=== PATIENT | male | born 1965 | race Caucasian/White ===

== ENCOUNTER 2022-08-22 06:26 | Outpatient (CLI) | payer OTHER, SELFPAY ==
--- NOTE | 2022-08-22 06:42 | CT_ITS ---
WS: [id number] CT ABDOMEN AND PELVIS NONCONTRAST HISTORY: MASS UPPER RIGHT THIGH, LOWER PELVIC AREA, history of Hodgkin's lymphoma. TECHNIQUE: Imaging performed through the abdomen and pelvis. Coronal and sagittal reformats are submi tted. All CT scans at [facility] use at least one of these dose optimization techniques: auto mated exposure control; mA and/or kV adjustment per patient size (includes targeted exams where dose is matched to clinical indication); or iterative reconstruction. DLP: 1347.43 mGy.cm COMPARISON: None available. Lower thorax: Lung bases are clear. Visualized heart is normal. No hiatal hernia. Liver: Normal size. No mass or bile duct dilatation on this unenhanced exam. Gallbladder: Mildly contracted. Pancreas: Normal size and attenuation. Normal pancreatic duct. No pancreatitis or mass. Spleen: Normal. Adrenal glands: Normal. No mass. Right kidney: Normal size kidney with no mass or hydronephrosis. Left kidney: Normal size kidney with no mass or hydronephrosis. Aorta: Mild atherosclerosis abdominal aorta with no aneurysm. No free fluid or free air. GI tract: Normally distended stomach. No small bowel obstruction. No wall thickening or colitis. Norm al appendix. Abdominal wall: Negative. No hernia. Pelvis: Well-distended urinary bladder. No free fluid in the pelvis. Several enlarged lymph nodes in the pelvis. The largest in the RIGHT inguinal region measures 2.0 x 3.3 cm. There are smaller lymph n odes bilaterally in the inguinal regions. The largest on the RIGHT is rounded with mild wall enhancem ent measuring 1.5 cm in diameter. Osseous structures: No osteoblastic or osteolytic bone disease. Subchondral cyst LEFT acetabulum. CT/CT abdomen pelvis wo con [id number] IMPRESSION: 1. Mildly enlarged lymph nodes in the RIGHT inguinal region. In the deep RIGHT inguinal region the largest lymph node measures 2.0 x 3.3 cm. There are severa l additional smaller bilateral inguinal lymph nodes which are more superficial. Possibility of recurrent Hodgkin's disease should be considered. 2. No retroperitoneal or mesenteric lymph nodes. 3. Mild constipation. 4. No ascites.
== END 2022-08-22 06:27 | disposition home or self-care (01) ==
LOC: RAD 06:27
PROVIDERS: PCP Nurse Practitioner; Visit Provider Nurse Practitioner
DX: R19.00 Intra-abdominal and pelvic swelling, mass and lump, unspecified site (principal); K59.00 Constipation, unspecified
CPT/HCPCS: 74176

== ENCOUNTER 2022-09-07 06:07 | Outpatient (CLI) | payer OTHER, SELFPAY ==
--- NOTE | 2022-09-07 | US_ITS ---
WS: [id number] RIGHT UPPER QUADRANT ULTRASOUND HISTORY: ELEVATED LFT'S COMPARISON: None available. Liver: 15.5 cm in length. Normal size liver. No bile duct dilatation or mass. Portal Vein: Normal hepatopetal flow with monophasic waveform. Gallbladder: Normally distended gallbladder with no stones or wall thickening. CBD: 0.3 cm Pancreas: Normal size and echogenicity. Right kidney: 11.3 cm in length. Normal size and echogenicity. No hydronephrosis or mass. Aorta and IVC: Unremarkable abdominal aorta and IVC. No ascites. US/US liver [id number] IMPRESSION: Normal RIGHT upper quadrant ultrasound.
== END 2022-09-07 06:08 | disposition home or self-care (01) ==
LOC: RAD 06:08
PROVIDERS: PCP Nurse Practitioner; Visit Provider Nurse Practitioner
DX: R94.5 Abnormal results of liver function studies (principal)
CPT/HCPCS: 76705

== ENCOUNTER 2022-10-27 15:50 | Oncology outpatient (recurring) (ONCR) | payer OTHER, SELFPAY | END 2022-11-19 23:59 | disposition home or self-care (01) | LOC: ONCMED 15:50 | PROVIDERS: PCP Nurse Practitioner; Visit Provider Internal Medicine Medical Oncology | DX: R59.1 Generalized enlarged lymph nodes (principal); Z85.71 Personal history of Hodgkin lymphoma; Z92.21 Personal history of antineoplastic chemotherapy; Z92.3 Personal history of irradiation | CPT/HCPCS: 99204 ==

== ENCOUNTER 2022-12-02 12:20 | Outpatient (CLI) | payer OTHER, SELFPAY ==
--- NOTE | 2022-12-02 13:00 | US_ITS ---
WS: [id number] ULTRASOUND GUIDED BIOPSY RIGHT INGUINAL LYMPH NODES. HISTORY: abnormal lymph nodes on PET and CT Procedure, risks, and complications are explained to the patient. Consent was obtained. Skin is clean sed with ChloraPrep and anesthetized with 1% buffered lidocaine. Positive lymph nodes were noted on a prior PET/CT. Multiple lymph nodes are identified in the RIGHT i nguinal canal. These lymph nodes are only mildly abnormal. Some of these lymph nodes have a minimally displaced fatty hilum. Lymph node noted to be PET/CT positive will be targeted. Double small core biopsies are performed of the lymph node in the RIGHT groin. Multiple core biopsies are performed and placed within preservative and saline as requested by pathology. No complications were encountered. US/US biopsy lymph node [id number] IMPRESSION: 1. Multiple core biopsies performed of a RIGHT inguinal lymph node which was p ositive on PET/CT imaging. Flow cytometry will also be performed. 2. The lymph nodes do not appear overtly abnormal by ultrasound. If these lymp h nodes are negative for malignancy or there is no explanation for the PET/CT p ositive imaging, surgical removal may be necessary. None of the lymph nodes in the RIGHT inguinal region appear particularly abnormal.
[2022-12-05 14:34] LABS: Lymphoma Profile (BBPL) See Report
== END 2022-12-02 12:21 | disposition home or self-care (01) ==
LOC: RAD 12:22
PROVIDERS: PCP Nurse Practitioner; Visit Provider Internal Medicine Medical Oncology
DX: R59.1 Generalized enlarged lymph nodes (principal)
CPT/HCPCS: 38505; 76942; 88184; 88185; 88305; 88342

== ENCOUNTER 2024-01-08 11:49 | Emergency (ER) | payer OTHER, SELFPAY ==
[2024-01-08 11:52] VITALS: BP 168/92; PULSE 76; RESP 16; TEMP 36.6; O2SAT 97; BMI 33.5
--- NOTE | 2024-01-08 12:07 | ED_ITS ---
HPI - General Adult 2 General: Chief complaint: General Medical Stated complaint: n,dizzy, ear ringing Time Seen by Provider: 01/08/24 12:07 History of Present Illness: 58-year-old male presents to the emergen cy department with complaints of feeling intermittently dizzy and then feeling faint and stating he felt like he had ringing in the ears. He denies headache, he does endorse nausea without vomiting. He denies chest pain or shortness of breath. He states this has happened a couple times throughout his life. He denies recent or known trauma. Associated symptoms: Deny chest pain, palpitations or syncope Review of Systems 2 General: Reports: 10 or more systems reviewed and unremarkable except in HPI and below ENMT: Reports: other (Ringing in the ears) Card: Denies: chest pain, palpitations, irregular heart rhythm, edema, syncope or pre-syncope Neuro: Reports: dizziness and vertigo [facility] ED 2 PFSH: Medical History (Updated 01/08/24 @ 12:58 by Gume Cameron MD) Peripheral neuropathy ADHD (attention deficit hyperactivity disorder) Personal history of Hodgkin lymphoma Heart murmur Surgical History (Updated 10/27/22 @ 17:19 by Abe Agosto MD) History of right inguinal hernia repair History of knee surgery Right Family History (Updated 10/27/22 @ 16:08 by Génesis Flynn LPN) Grandfather CAD (coronary artery disease) Mother Cancer lung cancer - smoker Psychiatric illness depression Grandmother Dementia Stroke Denies family history of Diabetes Clotting disorder Hyperlipidemia Chronic kidney disease (CKD) Suicide Anesthesia complication Bleeding disorder Lung disease Hypertension Social History (Updated 10/27/22 @ 16:08 by Génesis Flynn LPN) Smoking and tobacco/nicotine status: former use of tobacco/nicotine Physical Exam 2 Narrative: EXAM NARRATIVE: Constitutional: the patient appears well nourished and with normal development. Vital signs reviewed as documented. HENMT: Normocephalic, atraumatic. External ears normal appearance without drainage. Nose without drainage, normal appearance. Mucus membranes moist. Neck is supple, No jugular venous distension, trachea is midline, no appreciable carotid bruits. No lymphadenopathy. No meningeal signs. Flexion, extension and lateral rotation is without pain. Eyes: Pupils are equal, round, reactive to light and accommodation. No scleral icterus. Extra-ocular movement are intact. Thorax is symmetrical and with equal rise and fall with respirations. Resp: Lungs are clear to auscultation. No wheezes, rales, crackles or ronchi at present. Cardio: Regular rate and rhythm. Positive S1, S2. No appreciable murmurs, rubs or gallops. GI: Abdominal exam reveals normal bowel sounds to all quadrants. No organomegaly. No obvious palpable masses noted. No hepatomegally appreciated. Soft, non-tender to palpation. Extremity: Extremities are non-edematous and both femoral and pedal pulses are 2+ and equal bilaterally. Moves all extremities well, sensation in all extremities. Neuro: Alert and oriented x4, person, place, time and situation. Cranial nerves II through XII are grossly intact, there is no focal neurological deficits that I can appreciate at present. Motor strength in the upper and lower extremities are equal and bilateral 5/5. Psych: Cooperative, calm, normal thought process, appropriate judgment. Skin: No lesions, rashes. No gross abnormalities noted. Back: Symmetrical, no obvious deformity, No CVA tenderness Course 2 Vital Signs: Vital signs: Vital Signs Temperature 97.8 F 01/08/24 11:52 Pulse Rate 74 01/08/24 13:42 Respiratory Rate 16 01/08/24 11:52 Blood Pressure 170/93 01/08/24 13:42 Pulse Oximetry 97 01/08/24 13:42 Oxygen Delivery Me thod Room Air 01/08/24 11:52 MDM - General Adult Medical Decision Making Physical exam completed and documented I will obtain CT scan of his head provide him meclizine and obtain laboratory evaluation and twelve-lead EKG to include a CBC and a CMP. Differential Diagnosis M?ni?re's, dehydration, electrolyte abnormality, intracranial pathology Medical Records I reviewed the patient's medical records. Lab Data I reviewed the patient's lab results. 01/08/24 12:31 01/08/24 12:31 Laboratory Results WBC 9.42 10^3/uL (3.29-11.43) 01/08/24 12:31 RBC 4.87 10^6/uL (3.85-5.65) 01/08/24 12:31 Hgb 14.20 g/dL (11.27-16.99) 01/08/24 12:31 Hct 43.0 % (37-53) 01/08/24 12:31 MCV 88.3 fl (82-101) 01/08/24 12:31 MCH 29.2 pg (27-33) 01/08/24 12:31 MCHC 33.0 g/dL (30-55) 01/08/24 12:31 RDW 14.2 % (12.1-15.1) 01/08/24 12:31 Plt Count 292 10^3/cmm (157-399) 01/08/24 12:31 MPV 10.3 fL (7.4-10.4) 01/08/24 12:31 Neut % (Auto) 54.1 % 01/08/24 12:31 Lymph % (Auto) 28.8 % 01/08/24 12:31 Mcculloch % (Auto) 14.4 % 01/08/24 12:31 Eos % (Auto) 1.2 % 01/08/24 12:31 Baso % (Auto) 1.2 % 01/08/24 12:31 Neut # (Auto) 5.10 10^3/uL (1.8-7.7) 01/08/24 12:31 Lymph # (Auto) 2.7 10^3/uL (0.8-4.8) 01/08/24 12:31 Mcculloch # (Auto) 1.4 10^3/uL (0.2-0.9) H 01/08/24 12:31 Eos # (Auto) 0.1 10^3/uL (0.0-0.8) 01/08/24 12:31 Baso # (Auto) 0.1 10^3/uL (0.0-0.1) 01/08/24 12:31 Nucleated RBC % (auto) 0 % 01/08/24 12:31 Nucleated RBCs # 0.0 /100WBC 01/08/24 12:31 Sodium 138 mmol/L (136-145) 01/08/24 12:31 Potassium 3.7 mmol/L (3.5-5.1) 01/08/24 12:31 Chloride 102 mmol/L (98-107) 01/08/24 12:31 Carbon Dioxide 25 mmol/L (22-29) 01/08/24 12:31 Anion Gap 14.7 (5-19) 01/08/24 12:31 BUN 13 mg/dL (6-20) 01/08/24 12:31 Creatinine 0.9 mg/dL (0.7-1.2) 01/08/24 12:31 GFR Calculation 87.3 mL/min (90-130) L 01/08/24 12:31 Glucose 109 mg/dL (65-115) 01/08/24 12:31 Calculated Osmolality 287 mOsm/kg (285-295) 01/08/24 12:31 Calcium 9.1 mg/dL (8.5-10.5) 01/08/24 12:31 Total Bilirubin 0.5 mg/dL (0.15-1.2) 01/08/24 12:31 AST 23 U/L (0-40) 01/08/24 12:31 ALT 20 U/L (0-41) 01/08/24 12:31 Alkaline Phosphatase 78 U/L (40-130) 01/08/24 12:31 Total Protein 7.9 g/dL (6.6-8.7) 01/08/24 12:31 Albumin 4.0 g/dL (3.5-5.2) 01/08/24 12:31 Globulin 3.9 g/dL (1.3-4.6) 01/08/24 12:31 All radiology interpretation(s) finalized by discharge EKG Data EKG 1: Interpretation: Twelve-lead EKG obtained at 1222 and reviewed at 1225 demonstrates sinus rhythm with a first-degree AV block and a ventricular rate of 71 ND interval 201, QRS duration 94, QT 395, QTc 418, there is no ST elevation or depression at present to demonstrate acute ischemia or infarction. Discharge Plan Discharge Patient Disposition: Home Clinical Impression: Benign paroxysmal positional vertigo Qualifiers: Laterality: unspecified laterality Qualified Code(s): H81.10 - Benign paroxysmal vertigo, unspecified ear Condition: Stable Prescriptions: New meclizine 50 mg tablet 50 mg PO BID PRN (Reason: dizziness) Qty: 30 0RF No Action methylphenidate HCl [Ritalin] 10 mg tablet See Rx Instructions PO DAILY Rx Instructions: unsure of dose orally daily; Discharge Orders: Discharge ED (Routine); Ordered 01/08/24 Ordered By: Gume Cameron Referrals: Chelsea Quintana FNP [Primary Care Provider] - Discharge Diet: Advance as tolerated Discharge Activity: Resume usual activity Patient Instructions: Opioid Safety, Pain Management Activity Restrictions/Additional Instructions: Activity Restrictions/Additional Instructions: Thank you for choosing [facility] for your healthcare needs today. Please realize that you were seen in the Emergency Department and that we are providing you with an emergency medical screening exam and this may not be a complete and all inclusive of all the testing and or medical work-up that you may need to determine your ailment or severity of your illness. It is very important that you follow-up as instructed with your Primary care provider or Specialist for additional evaluation and to discuss your medical treatment plan. You may return to the Emergency Department should you have concerns or if your condition changes or worsens in any way. Coding Level of Care Code ED Window Machine Operator for Doni العراقي
[2024-01-08 12:08] VITALS: BP 151/92; BP 151/93; BP 161/92; PULSE 75; PULSE 81; PULSE 85
--- NOTE | 2024-01-08 12:08 | ECG_ITS ---
[facility] Test Date: 2024-01-08 Pat Name: Richard Fofana Department: Room: Gender: Male Principal Technologist: : 1965 Requested By: Gume Cameron Order Number: [id number] Manuel MD: Ino Abrams M.D. Measurements Intervals [place] Rate: 71 P: 65 MS: 201 QRS: 50 QRSD: 94 T: 73 QT: 395 QTc: 432 Interpretive Statements SINUS RHYTHM VOLTAGE CRITERIA FOR LVH [MEETS CRITERIA IN ONE OF: R(aVL), S(V1), R(V5), R(V5/V6)+S(V1)] NONSPECIFIC T-WAVE ABNORMALITY No previous ECG available for comparison Electronically Signed On 01-08-2024 12:47:20 DISABILITY SERVICES COORDINATOR by Ino Abrams M.D. [id number]
--- NOTE | 2024-01-08 12:08 | CT_ITS ---
WS: [id number] CT HEAD TECHNIQUE: Noncontrast CT of the head obtained from the skullbase to the vertex. CLINICAL INFORMATION: Dizzines COMPARISON: None. DLP: 1083.[address] scans at [facility] use at least one of these dose optimization techniques: automated e xposure control; mA and/or kV adjustment per patient size (includes targeted exams where dose is matc hed to clinical indication); or iterative reconstruction. FINDINGS: No evidence of intracranial hemorrhage or mass effect. Ventricular system and basal cisterns are pratt nt. Mild small vessel changes with mild parenchymal volume loss. No extra-axial fluid collections. No evidence of mass or mass effect. Intracranial vascular calcification. Tiny chronic lacunar infarcts bilateral caudate greater than LEFT. Paranasal sinuses and mastoid air cells are well aerated. .Normal visualized soft tissues. IMPRESSION: 1. No evidence of intracranial hemorrhage or mass effect. 2. No acute intracranial findings.
[2024-01-08] MEDS: meclizine 25 mg tablet 50 MG PO (12:27)
[2024-01-08 12:39] LABS: Basophils # 0.1 10^3/uL (0.0-0.1); Basophils % 1.2 %; Eosinophils # 0.1 10^3/uL (0.0-0.8); Eosinophils % 1.2 %; Lymphocytes # 2.7 10^3/uL (0.8-4.8); Lymphocytes % 28.8 %; Mean Corpuscular Hemoglobin 29.2 pg (27-33); Mean Corpuscular Volume 88.3 fl (82-101); Mean Platelet Volume 10.3 fL (7.4-10.4); Monocytes # 1.4 10^3/uL (0.2-0.9); Monocytes % 14.4 %; Neutrophils % 54.1 %; Nucleated Red Blood Cells % 0 %; Platelet Count 292 10^3/cmm (157-399); Red Blood Count 4.87 10^6/uL (3.85-5.65); Red Cell Distribution Width 14.2 % (12.1-15.1); White Blood Count 9.42 10^3/uL (3.29-11.43)
[2024-01-08 12:57] LABS: Alanine Aminotransferase 20 U/L (0-41); Alkaline Phosphatase 78 U/L (40-130); Anion Gap 14.7 (5-19); Aspartate Amino Transferase 23 U/L (0-40); Blood Urea Nitrogen 13 mg/dL (6-20); Calcium 9.1 mg/dL (8.5-10.5); Carbon Dioxide 25 mmol/L (22-29); Chloride 102 mmol/L (98-107); Globulin 3.9 g/dL (1.3-4.6); Glomerular Filtration Rate 87.3 mL/min (90-130); Glucose 109 mg/dL (65-115); Osmolality Calculated 287 mOsm/kg (285-295); Potassium 3.7 mmol/L (3.5-5.1); Sodium 138 mmol/L (136-145); Total Bilirubin 0.5 mg/dL (0.15-1.2); Total Protein 7.9 g/dL (6.6-8.7)
[2024-01-08 13:42] VITALS: BP 170/93; PULSE 74; O2SAT 97
== END 2024-01-08 13:43 | disposition home or self-care (01) ==
PROVIDERS: Emergency Provider Internal Medicine; PCP Nurse Practitioner
DX: H81.10 Benign paroxysmal vertigo, unspecified ear (principal); Z87.891 Personal history of nicotine dependence; Z85.71 Personal history of Hodgkin lymphoma
CPT/HCPCS: 36415; 70450; 80053; 85025; 93005; 99284; J8597

== ENCOUNTER → 2024-08-21 08:35 | Outpatient (BNVA) | payer OTHER, SELFPAY | PROVIDERS: PCP Nurse Practitioner; Referring Provider Nurse Practitioner; Visit Provider Nurse Practitioner Family | DX: D48.5 Neoplasm of uncertain behavior of skin (principal); L82.0 Inflamed seborrheic keratosis; L91.8 Other hypertrophic disorders of the skin; L81.4 Other melanin hyperpigmentation; D22.39 Melanocytic nevi of other parts of face | CPT/HCPCS: 11102; 17110; 99203 ==

== ENCOUNTER → 2024-09-04 08:28 | Outpatient (BNVA) | payer OTHER, SELFPAY | PROVIDERS: PCP Nurse Practitioner; Referring Provider Nurse Practitioner; Visit Provider Surgery | DX: Z12.11 Encounter for screening for malignant neoplasm of colon (principal) | CPT/HCPCS: 99203 ==

== ENCOUNTER 2024-09-26 10:44 | Day surgery (SDC) | payer OTHER, SELFPAY ==
[2024-09-26 10:58] VITALS: BP 140/82; PULSE 71; RESP 16; TEMP 36.3; O2SAT 98; BMI 34.2
[2024-09-26] MEDS: sodium chloride 0.9% 1,000 ML 30 ML IV (11:09)
--- NOTE | 2024-09-26 11:12 | P.HPUD_ITS ---
Surgery/Procedure H&P Update DATE OF PROCEDURE: September 26, 2024 DATE H&P PERFORMED: 09/04/24 H&P UPDATE INFORMATION: I have reviewed H&P completed within last 30 days, I have examined patient prior to procedure, No changes to prior documentation and H&P is in [facility] EMR on date indicated PLANNED PROCEDURE: Operation Date: 09/26/24 12:20 Proposed Procedures p Colonoscopy 52750, G0121, Z12.11(Not Applicable) - Balta Young MD
--- NOTE | 2024-09-26 12:41 | ANES.PREANE2 ---
Pre-Anesthetic Assessment Height/Weight: Height 1.8 m Weight 111.13 kg Temp Pulse Resp BP Pulse Ox O2 Del Method 97.4 F L 71 16 140/82 98 Room Air 09/26/24 10:58 09/26/24 10:58 09/26/24 10:58 09/26/24 10:58 09/26/24 10:58 09/26/24 10:58 Operation Date: 09/26/24 12:20 Proposed Procedures p Colonoscopy 23935, G0121, Z12.11(Not Applicable) - Balta Young MD Familial anesthetic complications: None Was Beta Ana taken within 24 hours: N/A Was Clonidine taken within 24 hours: N/A Last intake: Intake Last Liquid Date 09/26/24 Last Liquid Time 08:00 Last Solid Date 09/24/24 Last Solid Time 18:00 Social No alcohol and No tobacco Exam alert, oriented x 3, clear to auscultation bilaterally and regular rate & rhythm Airway Dentition: full Neuropsych ADHD Anesthetic Plan ASA status: 1 Anesthesia: MAC Risk of > 500 ml blood loss (7ml/kg in children): No Medications/Allergies Home Medications Medication Instructions Recorded Confirmed Last Taken Type methylphenidate HCl 10 mg tablet 10 mg PO DAILY 10/27/22 09/26/24 09/25/24 History (Ritalin) meclizine 50 mg tablet 50 mg PO BID PRN dizziness #30 tabs 01/08/24 09/26/24 09/25/24 Rx Allergies Allergy/AdvReac Type Severity Reaction Status Date / Time Iodinated Contrast Media Allergy ALGY-Hives Verified 09/26/24 10:56 Current Medications Generic Name Dose Route Start Last Admin Trade Name Freq PRN Reason Stop Dose Admin Sodium Chloride 1,000 mls @ 30 mls/hr 09/26/24 11:00 09/26/24 11:09 Sodium Chloride 0.9% IV 09/27/24 10:59 30 mls/hr .Q24H PARAS Administration PFSH Anesthesia Medical History Peripheral neuropathy ADHD (attention deficit hyperactivity disorder) Personal history of Hodgkin lymphoma Heart murmur Surgical History History of right inguinal hernia repair History of knee surgery Right Family History Grandfather CAD (coronary artery disease) Mother Cancer lung cancer - smoker Psychiatric illness depression Grandmother Dementia Stroke Denies family history of Diabetes Clotting disorder Hyperlipidemia Chronic kidney disease (CKD) Suicide Anesthesia complication Bleeding disorder Lung disease Hypertension Social History (Updated 09/04/24 @ 08:59 by FRED Ray) Smoking and tobacco/nicotine status: never used tobacco/nicotine Alcohol intake: current Alcohol intake frequency: holidays/special occasions only Data Anesthesia Cardiac Studies: No Data to Display
[2024-09-26 12:57] VITALS: BP 112/67; PULSE 71; RESP 16; TEMP 36.5; O2SAT 98
[2024-09-26 13:12] VITALS: BP 136/80; PULSE 80; RESP 18; O2SAT 97
--- NOTE | 2024-09-26 14:15 | ANE.PACU2 ---
Inpatient post-anesthesia follow up: Airway intact: Yes Vital signs: Temperature 97.7 F Pulse Rate 80 Respiratory Rate 18 Blood Pressure 136/80 Pulse Oximetry 97 Oxygen Delivery Me thod Room Air Oxygen Flow Rate Fraction of Inspir ed Oxygen Hydration adequate: Yes Nausea and vomiting: No Pain level: 1 Mental status: Baseline
== END 2024-09-26 14:15 | disposition home or self-care (01) ==
PROVIDERS: PCP Nurse Practitioner; Visit Provider Surgery
PROC: 0DJD8ZZ Inspection of Lower Intestinal Tract, Via Natural or Artificial Opening Endoscopic (ICD-10-PCS; CPT 45378; principal; 2024-09-26 12:20)
DX: Z12.11 Encounter for screening for malignant neoplasm of colon (principal); D12.4 Benign neoplasm of descending colon; D12.5 Benign neoplasm of sigmoid colon; D12.8 Benign neoplasm of rectum; F90.9 Attention-deficit hyperactivity disorder, unspecified type
CPT/HCPCS: 45380; 88305; J2704; J7030

== ENCOUNTER → 2024-10-08 09:11 | Outpatient (BNVA) | payer OTHER, SELFPAY | PROVIDERS: PCP Nurse Practitioner; Visit Provider Surgery | DX: Z09 Encounter for follow-up examination after completed treatment for conditions other than malignant neoplasm (principal) | CPT/HCPCS: 99213 ==

== ENCOUNTER 2025-01-16 07:36 | Outpatient (CLI) | payer OTHER, SELFPAY ==
--- NOTE | 2025-01-16 07:40 | ECG_ITS ---
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 Interpretive Statements EXERCISE STRESS TEST EXERCISE DATA: The patient was exercised by Suraj protocol. Baseline heart rate was 67 beats per minute. Baseline blood pressure was 136/80 millimeters of mercury. Maximal predicted heart rate was 163 beats per minute. Maximum heart rate achieved was 137 which was 84% of the maximum predicted heart rate. Maximum blood pressure was 143/72 millimeters of mercury. Total exercise time was 5 minutes and 31 seconds. Maximum METs achieved was 7. The reason for ending the test was completion of protocol. The patient complained of shortness of breath during the stress test, which then resolved at the end of the test. ELECTROCARDIOGRAM: BASELINE: Showed sinus rhythm, normal axis, no significant ST-T changes at the baseline noted. [] EXERCISE: At the peak exercise level, [] EKG changed to left bundle branch block RECOVERY: During the recovery period, heart rate dropped appropriately. Left bundle branch block resolved. CONCLUSION: 1. Exercise capacity is fair 2. Heart rate response was borderline suboptimal 3. Blood pressure response was appropriate 4. Symptoms not suggestive of ischemia. 5. Electrocardiogram portion of the stress test is abnormal as patient had exercise induced left bundle branch block. 6. Nuclear scan will be documented separately. Electronically Signed On 02-05-2025 11:56:21 CDT by Ino Abrams M.D. [email or web address] [id number]
--- NOTE | 2025-01-16 07:41 | NMCV_ITS ---
NM asif perf SPECT r/s* [id number] Richard Fofana Age: 59 Gender: M : 1965 Exam Date: 01/16/2025 08:49 Ordering Phys: Chelsea Quintana Technologist: YULY Pal Exam [facility] Indications: cp STRESS TEST Please see separate stress test report in [facility] for full findings IMAGE PROTOCOL Rest/Stress 1 Exercise Day Radiopharmaceutical Dose (mCi) Administration Site Administered by Rest: Tc-99m 10.3 IV Darling Colón DEPOSIT CLERK Sestamibi Stress:Tc-99m 32.7 IV Darling Colón DEPOSIT CLERK Sestamibi Rest: 16-Jan-2025 60 Discovery 630 Stress: 16-Jan-2025 15 Discovery 630 Radiopharmaceutical was injected at 84% maximum heart rate. Images obtained in supine and prone position. SPECT RESULTS Technical Quality: Good Raw Data Analysis: Normal Image Corrections: No attenuation or motion correction applied Summed Stress Score: 3 Summed Rest Score: 1 Summed Difference Score: 2 PERFUSION FINDINGS There is a small sized partially reversible perfusion defect seen in apical lateral wall. This is consistent with small area of prior infarct with small sized urban-infarct ischemia seen in this territory. FUNCTIONAL RESULTS (calculated via Gated SPECT) Stress Image LV EF (%): 54 Stress EDV (mL):155 TID: 0.99 Stress ESV (mL):72 FUNCTIONAL FINDINGS: There is normal left ventricular systolic function. IMPRESSIONS 1. Small area of prior infarct with small sized area of urban-infarct ischemia seen in the apical lateral wall. 2. LV systolic function is normal Ino Abrams MD (Electronically Signed) Final Date: 16 January 2025 11:25 S
[2025-01-16 07:45] VITALS: BMI 30.7
--- NOTE | 2025-01-16 09:35 | PC.NURSE ---
Patient went into a left BBB around minute 5 of the treadmill. He had complaints of SOB, NO chest pain. He was injected and the test was finished. BP 115/67. Dr. Robbins was notified. Orders received to finish the nuclear medicine portion of the testing. The patient did convert to NSR during recovery. All this was explained to the patient in detail with his understanding voiced. He wished to continue. DC BP 175/83 with SOB resolved. Still NO chest pain. He was discharged from [facility] at 0930 via wheelchair to nuclear medicine with Johan AetherPal tech.
[2025-01-16 09:36] VITALS: BP 175/83; PULSE 89
== END 2025-01-16 07:37 | disposition home or self-care (01) ==
LOC: CDL 07:37
PROVIDERS: PCP Nurse Practitioner; Visit Provider Nurse Practitioner
DX: R06.02 Shortness of breath (principal); I24.89 Other forms of acute ischemic heart disease; R93.1 Abnormal findings on diagnostic imaging of heart and coronary circulation
CPT/HCPCS: 36415; 78452; 93017; 96374; A9500

== ENCOUNTER → 2025-01-20 15:40 | Outpatient (BNVA) | payer OTHER, SELFPAY | PROVIDERS: PCP Nurse Practitioner; Visit Provider Internal Medicine Cardiovascular Disease | DX: I20.89 Other forms of angina pectoris (principal); R06.02 Shortness of breath; R94.39 Abnormal result of other cardiovascular function study; I38 Endocarditis, valve unspecified | CPT/HCPCS: 99204 ==

== ENCOUNTER 2025-01-30 06:02 | Outpatient (CLI) | payer OTHER, SELFPAY ==
[2025-01-30] VITALS (29 sets, daily range): BP systolic 135–163; BP diastolic 69–98; PULSE 67–94; RESP 13–24; TEMP 36.6; O2SAT 95–98; BMI 31.9
--- NOTE | 2025-01-30 06:00 | XACV_ITS ---
Exam Room: 2 Ht: 180 cm Wt: 104 kg BSA: 2.31 m2 Gender: Male : 1965 Any Known Allergies: Contrast Exam Priority: Routine Procedure(s): Procedure Description: Diagnostic procedure Procedure Description: Left ventriculography Procedure Description: Coronary Angiography Procedure Description: Pressure Wire Rosendo ETIENNE; Diagnostic Cath Status: Elective Diagnostic Findings * Reason for left heart cath: Preop aortic stenosis#1 Left main: Normal #2 LAD has luminal irregularity without significant symptoms #3 left circumflex has proximal 70% stenosis significant by IFR 0.70, obtuse marginal takes off soon after the proximal segment it also has IFR of 0.53 #4 RCA has luminal irregularity without significant stenosisPeak to peak aortic valve gradient 30 mmHg severe aortic valve stenosis. PCI Status: Elective Interventional Findings * IFR: After equalizing the distal and proximal pressure of FFR wire proximal to the lesion, proximal LCx lesion was crossed with IFR wire. IFR was recorded as0.73, which is significant. Conclusions 1. Peak to peak gradient across aortic valve was 30 mmHg, aortic valve appeared to be severely stenotic. Recommendations * 1-Return to Recovery for close monitoring 2-Statin with LDL goal of 70 mg/dl, aspirin 81 mg p.o. daily for life long 3- Consider AVR (TAVR vs SAVR with SVG to LCx) 4-Follow up with Dr. Robbins in four weeks and establish care with primary care physician. Pressures Phase:Rest AO : 181 / 89 ( 129 ) @ 8:54:00 AM 182 / 89 ( 128 ) @ 8:54:00 AM 161 / 76 ( 111 ) @ 8:54:00 AM 193 / 81 ( 108 ) @ 8:58:00 AM 153 / 79 ( 112 ) @ 9:06:00 AM 152 / 79 ( 112 ) @ 9:06:00 AM 139 / 93 ( 116 ) @ 9:11:00 AM 166 / 95 ( 128 ) @ 9:48:00 AM 149 / 85 ( 114 ) @ 9:48:00 AM LV : 196 / -12 / 27 @ 8:54:00 AM 203 / -10 / 28 @ 8:54:00 AM 182 / -5 / 27 @ 9:06:00 AM 184 / -4 / 27 @ 9:06:00 AM 183 / 4 / 31 @ 9:44:00 AM 203 / -3 / 32 @ 9:48:00 AM 197 / -3 / 34 @ 9:48:00 AM Saturations Phase:Rest AO : 97 @ 8:54:00 AM Valves Phase:DefaultPhase AV : 37.0 @ 8:58:09 AM AV Mean Gradient: 42.0 @ 8:58:09 AM Clinical Evaluation EBL: 5mL-10mL Procedural Details Procedure Consent Obtained. Pre-Procedure Time Out. Identified patient by full name and date of as verbalized by the patient/guarantor. Does the consent match the physician's order: Yes. Accurate & Complete Informed Consent: Yes. Inpatient/Outpatient History & Physical on Chart: Yes. If H&P is completed, is and addenduem needed: No. Visualize and Verify Site with Patient/Guarantor: N/A. Relevant Radiology Images available: Yes. The risks, benefits, and alternatives of sedation and/or procedure were discussed by physician. The patient agrees to continue. Procedure started. [facility] Clinical Fraility Score: 3: Managing Well. 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 Chest Pain Symptom Assessment: Typical Angina Symptoms. Cardiovascular Instability: No. Correct patient, site and procedure confirmed by cath team. PERRLA. Strong, equal hand wildlife protector bilaterally. Lungs clear x 5 lobes. IV Site on Arrival: 20 gauge in the right anticubital. IV Fluids: 0.9% NaCl at KVO. 0 mL infused prior to micro lab analyst. Pre Procedural Pulses: bilateral dorsalis pedis was 2+. Pre Procedural Pulses: bilateral posterior tibial was 3+. Pre Procedural Pulses: bilateral radial was 3+. Oxygen started at 2liters/min via nasal canula. right groin was prepped with chloroprep then draped in the usual sterile fashion. right radial was prepped with chloroprep then draped in the usual sterile fashion. Physician notified. Baseline sample Acquired. HR: 68 BPM. Patient's family unavailable. Equipment: 6F - Radial. Cardiac Cath Pack. ACIST Manifold Kit Model BT 2000. Heparinized Saline (2 units/mL), 1000 mL bag. Physician arrived. Physician scrubbed in. Immediate Pre-Procedure Time Out. Correct Patient: Yes; Correct Procedure: Yes; Correct Site: Yes; Correct Patient Position: Yes; Correct Supplies: Yes; Dried Flammable Prep: Yes; Blood Products Available: N/A;. Lidocaine 1% infiltrated to the right radial. Arterial access obtained. A 5 kosovan Jaxson catheter in over the exchagne J wire. EDP Sample taken: LV 196/-13,27; HR: 78 BPM; SpO2: 100%. Pullback taken: LV 203/-11,28; AO 181/89(129); Mean: 30mmHg, Peak to Peak: 20mmHg, SEP: 19sec/min; HR: 79 BPM; SpO2: 100%. Multiple views taken of left coronary artery. Baseline sample Acquired. HR: 83 BPM. Catheter redirected to the RCA. Multiple views taken of right coronary artery. Catheter removed over the exchange J wire. A 5 kosovan JR4 catheter in over the exchange J wire. EDP Sample taken: LV 182/-6,27; HR: 84 BPM; SpO2: 98%. Pullback taken: LV 184/-5,27; AO 153/79(112); Mean: 37mmHg, Peak to Peak: 30mmHg, SEP: 26sec/min; HR: 83 BPM; SpO2: 94%. Catheter removed over the exchange J wire. 6 kosovan XB 3.5 guide catheter was inserted over the wire. iFR guidewire was advanced through the guide catheter to lesion in the OM. iFR guidewire out. Guide catheter out over the exchange J wire. 6 kosovan JL 3.5 guide catheter was inserted over the exchange J wire. iFR guidewire was advanced through the guide catheter to lesion in the OM. ACT drawn. Results 236 seconds. Therapeutic limits - pre-heparin administration 90-150 seconds and monitoring heparin during a vascular procedure >250 seconds. iFR of the OM performed with a spot of 0.58 with a pull backof 0.60. iFR wire redirected to the Circumflex. iFR of the Circumflex performed with a spot of 0.73 with a pull backof 0.65. iFR wire out. Guide catheter out the exchange J wire. A 5 kosovan Jaxson catheter in over the exchange J wire and crossed the LV. Catheter removed over the exchange J wire. A 6 kosovan [place] dual lumen catheter in over the exchagne J wire. Exchange wire out. EDP Sample taken: LV 183/4,31; HR: 81 BPM; SpO2: 88%. Gradient taken: LV 203/-4,32; AO 166/95(128); Mean: 42mmHg, Peak to Peak: 37mmHg, SEP: 24sec/min; HR: 84 BPM; SpO2: 87%. Noel catheter out over the exchagne J wire. Dr. Robbins scrubbed out. A TR Band was successful obtaining hemostatsis at the Right Radial artery insertion site. Post Procedure: Pulses reassessed and unchanged. PERRLA. Strong, equal hand wildlife protector bilaterally. No VTE prophylaxis required. Medication's Wasted: Lidocaine 1% = 18 mL. Medication's Wasted: Nitro = 50 mg. Medication's Wasted: Heparin = 1000 units. Total IV fluids: 250 mL. Post-op diagnosis: Significant OM and CX disease with severe Aortic stenosis. Complications: none. Estimated blood loss: 5mL-10mL. Responsiveness - Normal response to verbal stimuli; alert and oriented, PERRLA. Airway - Unaffected, no intervention required; spontaneous ventilation. Circulation: W/N/L, pulses unchanged. Nausea/Vomiting: No. Procedure completed. Patient transferred by wheelchair to CPRU. Vital chart was stopped. Access Site Site: Right Radial artery Sheath Size: 6 Fr Hemostasis Method: TR Band Hemostasis Success: Successful Procedure Medications Start: 7:35 AM Stop: 7:35 AM Medication: Versed Amount: 1 mg Route: I.V. Start: 7:35 AM Stop: 7:35 AM Medication: Fentanyl Amount: 50 mcg Route: I.V. Start: 7:35 AM Stop: 7:35 AM Medication: Benadryl Amount: 50 mg Route: I.V. Start: 7:36 AM Stop: 7:36 AM Medication: Solu-Medrol (methylprednisolone) Amount: 125 mg Route: I.V. Start: 7:39 AM Stop: 7:39 AM Medication: Pepcid Amount: 40 mg Route: I.V. Start: 7:51 AM Stop: 7:51 AM Medication: Heparin Amount: 5000 units Route: I.V. Start: 8:17 AM Stop: 8:17 AM Medication: Versed Amount: 1 mg Route: I.V. Start: 8:17 AM Stop: 8:17 AM Medication: Fentanyl Amount: 50 mcg Route: I.V. Start: 8:25 AM Stop: 8:25 AM Medication: Heparin Amount: 3000 units Route: I.V. I, the attending physician, have reviewed and verified all procedure medications. Yes, all medications given per verbal order History/Risk Factors Hypertension: No Dyslipidemia: No Peripheral Arterial Disease (PAD): No Myocardial Infarction (VT): No Obesity: No Renal Disease: No Tobacco Use: Never Prior Interventions PCI: No CABG: No Valve Surgery: No Report Signatures Finalized by Pérez Robbins MD on 02/14/2025 12:42 AM
[2025-01-30] MEDS: aspirin 325 mg Tablet PO (06:30)
[2025-01-30 06:33] LABS: Basophils # 0.1 10^3/uL (0.0-0.1); Basophils % 0.8 %; Eosinophils # 0.3 10^3/uL (0.0-0.8); Eosinophils % 3.2 %; Hematocrit 41.9 % (37-53); Lymphocytes % 29.8 %; Mean Corpuscular HGB Conc 31.5 g/dL (30-55); Mean Corpuscular Hemoglobin 27.8 pg (27-33); Mean Corpuscular Volume 88.2 fl (82-101); Mean Platelet Volume 10.9 fL (7.4-10.4); Monocytes # 1.8 10^3/uL (0.2-0.9); Monocytes % 18.3 %; Neutrophils # 4.72 10^3/uL (1.8-7.7); Neutrophils % 47.7 %; Nucleated Red Blood Cells % 0 %; Platelet Count 249 10^3/cmm (157-399); Red Blood Count 4.75 10^6/uL (3.85-5.65); Red Cell Distribution Width 15.5 % (12.1-15.1); White Blood Count 9.92 10^3/uL (3.29-11.43)
[2025-01-30 07:03] LABS: Anion Gap 13.9 (5-19); Blood Urea Nitrogen 22 mg/dL (6-20); Calcium 9.4 mg/dL (8.5-10.5); Carbon Dioxide 24 mmol/L (22-29); Chloride 107 mmol/L (98-107); Glucose 91 mg/dL (65-115); Osmolality Calculated 295 mOsm/kg (285-295); Potassium 3.9 mmol/L (3.5-5.1); Sodium 141 mmol/L (136-145)
--- NOTE | 2025-01-30 07:37 | W.PM.OPSUD ---
Surgery/Procedure H&P Update DATE OF PROCEDURE: January 30, 2025 DATE H&P PERFORMED: 01/20/25 H&P UPDATE INFORMATION: I have reviewed H&P completed within last 30 days, I have examined patient prior to procedure and No changes to prior documentation PREOP DIAGNOSIS: Abnormal stress test/angina equivalent/aortic valve stenosis PLANNED PROCEDURE: Operation Date: 01/30/25 10:00 Proposed Procedures p Cardiac Catheterization - C w/w/o LV Coros(Left) - Pérez Robbins MD PATIENT REASSESSED PRIOR TO SEDATION, WITH NO CHANGE NOTED: Yes PHYSICAL EXAM: alert, oriented x 3, clear to auscultation bilaterally and regular rate & rhythm OTHER PERTINENT EXAM FINDINGS: 2/6 systolic murmur AIRWAY EVAL/ANESTHESIA PLAN: ASA II, Risks, benefits & alternatives of sedation and/or procedure discussed and Patient agrees to continue as planned ADDITIONAL INFORMATION: All risk-benefit and alternative for the procedure has been explained in detail patient understand 2% risk of stroke major bleed, patient send 6% risk of minor bleeding oozing infection hematoma contrast induced nephropathy allergic reaction. He was premedicated with Solu-Medrol Benadryl and IV Pepcid. Patient agreed and we will proceed with it
== END 2025-01-30 13:47 | disposition home or self-care (01) ==
PROVIDERS: PCP Nurse Practitioner; Visit Provider Internal Medicine Cardiovascular Disease
DX: R94.39 Abnormal result of other cardiovascular function study (principal); I35.0 Nonrheumatic aortic (valve) stenosis; I25.2 Old myocardial infarction
CPT/HCPCS: 36415; 80048; 85025; 85347; 93458; 93571; 93572; 96365; 96374; 96375; 99152; 99153; C1769; C1887; C1894; J1200; J1644; J2250; J2919; J3010; J3490; J7030; J9999; Q0163; Q9967

== ENCOUNTER → 2025-02-17 14:43 | Outpatient (BNVA) | payer OTHER, SELFPAY | PROVIDERS: PCP Nurse Practitioner; Visit Provider Nurse Practitioner Family | DX: I35.0 Nonrheumatic aortic (valve) stenosis (principal); I38 Endocarditis, valve unspecified; I25.10 Atherosclerotic heart disease of native coronary artery without angina pectoris; J32.9 Chronic sinusitis, unspecified; Z87.891 Personal history of nicotine dependence; R94.39 Abnormal result of other cardiovascular function study | CPT/HCPCS: 36415; 80048; 85025; 85610; 99214 ==

== ENCOUNTER 2025-02-20 06:49 | Outpatient (CLI) | payer OTHER, SELFPAY ==
--- NOTE | 2025-02-20 07:00 | USCV_ITS ---
Richard Fofana Age: 59 Gender: M : 1965 Exam Date: 02/20/2025 07:03 Ordering Phys: Pérez Robbins MD ([email or web address]) Technologist: Exam Location: [facility] [place] Indication: murmur BP: 0 / 70 HR: 85 Rhythm: Sinus Technical Quality: Adequate MEASUREMENTS (Male / Female) Normal Values 2D ECHO LV Diastolic Diameter PLAX 5.0 cm 4.2 - 5.9 / 3.9 - 5.3 cm IVS Diastolic Thickness 1.3 cm 0.6 - 1.0 / 0.6 - 0.9 cm IVS Systolic Thickness 2.1 cm LVPW Diastolic Thickness 1.3 cm 0.6 - 1.0 / 0.6 - 0.9 cm LVPW Systolic Thickness 1.5 cm LVOT Diameter 2.0 cm LV Ejection Fraction 2D Teich 55.0 % LV Ejection Fraction MOD 4C 53.5 % LV Ejection Fraction MOD 2C 68.6 % LV Ejection Fraction 2C AL 69.8 % LA Diameter 4.1 cm RA Systolic Volume 4C AL 37.1 ml RA Systolic Volume 4C MOD 34.9 ml Aorta at Sinotubular Diameter 3.0 cm IVC Diameter 2.0 cm M-MODE LA Ao Ratio MM 1.4 AV Cusp Separation MM 1.3 cm DOPPLER AV Peak Velocity 287.0 cm/s LVOT Peak Velocity 84.0 cm/s AV Area Cont Eq vti 1.1 cm squared AV Area Cont Eq pk 1.0 cm squared MV Peak Velocity 178.3 cm/s MV Area PHT 5.0 cm squared Mitral E to A Ratio 1.4 TV Peak Velocity 177.5 cm/s TR Peak Velocity 279.0 cm/s TR Peak Gradient 31.1 mmHg TV Peak E Velocity 112.0 cm/s PV Peak Velocity 112.0 cm/s FINDINGS Left Ventricle Normal left ventricular size, systolic function and wall thickness, with no regional wall motion abnormalities. Left ventricular ejection fraction is estimated at 60 %. Grade II/IV diastolic dysfunction, moderately elevated filling pressures. Right Ventricle The right ventricle is normal in size and function. Right Atrium The right atrium is normal in size. Left Atrium The left atrium is normal in size. Mitral Valve Moderately thickened mitral valve. Moderate mitral annular calcification. No mitral valve stenosis. Trace mitral valve regurgitation. Aortic Valve Severe aortic valve calcification. Moderate aortic valve stenosis, mean gradient 14.3 mmHg, LASHON 1.1 cm squared. Mild to moderate aortic valve regurgitation. Tricuspid Valve Structurally normal tricuspid valve without significant stenosis, trace regurgitation. Pulmonary artery systolic pressure is normal. Pulmonic Valve Structurally normal pulmonic valve without significant stenosis. There is no pulmonic regurgitation. Pericardium Normal pericardium without effusion. Aorta Normal ascending aorta dimension. IVC The inferior vena cava appears normal. CONCLUSIONS Normal left ventricular size, systolic function and wall thickness, with no regional wall motion abnormalities. Left ventricular ejection fraction is estimated at 60 %. Grade II/IV diastolic dysfunction, moderately elevated filling pressures. Severe aortic valve calcification. Moderate aortic valve stenosis, mean gradient 14.3 mmHg, LASHON 1.1 cm squared. Mild to moderate aortic valve regurgitation. Moderately thickened mitral valve. Moderate mitral annular calcification. No mitral valve stenosis. Trace mitral valve regurgitation. There is no pericardial effusion. Right atrial pressure is around 5 mm of mercury. Pérez Robbins MD (Electronically Signed) Final Date: 28 February 2025 20:33 S
== END 2025-02-20 06:50 | disposition home or self-care (01) ==
LOC: RAD 06:49
PROVIDERS: PCP Nurse Practitioner; Visit Provider Internal Medicine Cardiovascular Disease
DX: I08.0 Rheumatic disorders of both mitral and aortic valves (principal); R06.02 Shortness of breath
CPT/HCPCS: 93306

== ENCOUNTER 2025-04-24 07:43 | Outpatient (CLI) | payer OTHER, SELFPAY ==
--- NOTE | 2025-04-24 07:47 | US_ITS ---
WS: [id number] THYROID ULTRASOUND HISTORY: THYROID NODULES FOUND ON CT COMPARISON: None available. Right lobe: 1.3 cm x 2.0 cm x 4.9 cm (w x ap x l). Volume: 6.1 cm3. Slightly enlarged thyroid. Heterogeneous appearance of the thyroid with cystic and mixed cystic and solid nodules. No 1 discrete nodule. These nodules are isoechoic to the remaining gland. Left lobe: 3.2 cm x 3.2 cm x 6.4 cm (w x ap x l). Volume: 31.4 cm3. Enlarged thyroid with cystic and solid nodules. Increased vascularity throughout the thyroid. These nodules are isoechoic to the remaining gland. There is no one discrete nodule for biopsy. Isthmus: 0.3 cm. US/US thyroid [id number] IMPRESSION: 1. Enlarged nodular thyroid, greatest involving the LEFT lobe. 2. Most consistent with a multinodular goiter with cystic components. There is no one discrete nodule for biopsy recommended.
== END 2025-04-24 07:44 | disposition home or self-care (01) ==
PROVIDERS: PCP Nurse Practitioner; Visit Provider Nurse Practitioner
DX: Z01.89 Encounter for other specified special examinations (principal); E04.2 Nontoxic multinodular goiter
CPT/HCPCS: 76536

== ENCOUNTER 2025-05-04 21:32 | Inpatient (IN) | payer OTHER, SELFPAY ==
--- OUTSIDE RECORDS SUMMARY | 2025-04-07 03:30 | XMS_ITS | Encounter Summary ---
Author Name [facility] [facility] [place] Address [address] [place] [address] Care Team Providers Care Contracts Analyst Name Role Phone LORELEI BROWN Primary Care Provider Unavail able XIOMARA MAZARIEGOS Primary Care Provider Unavailabl e Selected Encounter This section includes the information on record at [place] for the Encounter. Date/Time Encounter Type Encounter Description Reason Provider Source April 07, 2025 08:30 AM OFFICE O/P EST LOW 20 MIN PRIMARY CARE/MEDICINE ICD-10-CM E04.1 Nontoxic single thyroid nodule EDWIGE BROWN Pretty Encounter Template Text not used by [place] Assessments - Encounter Diagnoses This section includes the primary and secondary diagnoses documented for the Encounter. Date/Time Primary/Secondary Diagnosis Diagnosis Name Provider Source April 07, 2025 09:20 AM PRIMARY Nontoxic single thyroid nodule EDWIGE BROWN R [facility]BDI [facility] April 07, 2025 09:20 AM SECONDARY Atrioventricular block, first degree EDWIGE BROWN R ABDI [facility] [place] April 07, 2025 09:20 AM SECONDARY Nonrheumatic aortic (valve) stenosis [facility] Plan of Treatment: Future Appointments (+ 6 months) and Future Tests (+/- 45 days) The Plan of Treatment section includes future care activities for the patient from all [facility] treatmentfacilities. This section includes future appointments and future orders which are active, pending or scheduled. Future Appointments This section includes appointments that were scheduled to occur 6 months from the date of the Encounter, up to a maximum of 20 appointments. The data comes from all [facility]. Appointment Date/Time Appointment Type Appointme nt Facility Name Apr 22, 2025 01:30 PM AMBULATORY - [place]ICINE [place] [facility] Apr 24, 2025 07:45 AM AMBULATORY - [place]IC[place] [facility] May 02, 2025 08:30 AM [facility] [place] [facility] May 04, 2025 01:59 PM AMBUL[facility]ORY - [place] [facility] May 12, 2025 09:30 AM AMBULATORY - MEDICINE [facility] May 26, 2025 11:00 AM AMBULATORY - MEDICINE [facility] Jul 08, 2025 09:30 AM AMBULATORY - MEDICINE [facility] Active, Pending, and Scheduled Orders This section includes a listing of several types of active, pending, and scheduled orders, including clinic medications orders, diagnostic test orders, procedure orders and consult orders; where the start date of the order is 45 days before the date of the Encounter or 45 days after the date of theEncounter. The data comes from all [facility]. Test Date/Time Test Type Test Details Facility Name Apr 30, 2025 01:54 PM Consult Order COMMUNITY CARE-OPHTH DIS MGMT [id number] Cons Direct Entry [facility]wife[facility] May 01, 2025 11:46 AM Consult Order COMMUNITY CARE-GEC SKILLED HOME CARE [id number] Cons Direct Entry Midwife's Choice [facility] May 03, 2025 10:47 PM Consult Order COMMUNITY CARE-ENDOCRINOLOGY [id number] Cons Direct Entry Midwife's [facility] Vital Signs: All taken on the encounter date This section contains inpatient and outpatient Vital Signs collected on the date of the Encounter. Date/Time Temperature Pulse Blood Pressure Respiratory Rate SP02 Pain Height Weight Body Mass Index Source April 07, 2025 08:51 AM 69 151/82 [facility] April 07, 2025 08:50 AM 75 146/82 99 [facility] April 07, 2025 08:44 AM 74 158/83 16 99 0 71.0 230.8 32 [facility] Social History: Smoking Status (Most current) and Tobacco Use (All prior to encounter date) This section includes the most current, and the historical, smoking and tobacco- related health factors from the [place] facility where the Encounter took place. Current Smoking Status This section includes the most current smoking, or tobacco-related health factor, from the [place] facility where the Encounter took place. Date/Time Current Smoking Status Comment Bud ity Jul 12, 2024 09:30 AM VA-TOBACCO NEVER USED [facility] Tobacco Use History This section includes a history of the smoking, or tobacco-related health factors, that were collected on or before the date of the Encounter. The data comes from the [place] facility where the Encounter took place. Date/Time Smoking Status/Tobacco Use Comment F acility Jul 08, 2022 08:31 AM VA-TOBACCO FORMER USER [facility] Jul 08, 2022 08:31 AM [place]-TO[place]AC[place] QUIT 15 YRS OR MORE [facility] Advance Directives: All historical and current Section Date Range: From patient's date of to the date document was created. This section includes ALL of a patient's completed or amended [place] Advance and Rescinded Directives. The entries below indicate that a directive exists for the patient, but an actual copy is not included with this document. The data comes from all [place] facilities. Date Advance Directives Provider Source Jan 20, 2022 ADVANCE DIRECTIVE DISCUSSION ANNE WASHINGTON [facility] Jan 20, 2021 ADVANCE DIRECTIVE DISCUSSION ANNE WASHINGTON [facility] Dec 24, 2018 ADVANCE DIRECTIVE DISCUSSION MELBA LOPEZ [facility] Oct 09, 2017 ADVANCE DIRECTIVE DISCUSSION MELBA LOPEZ [facility] Apr 21, 2016 ADVANCE DIRECTIVE DISCUSSION MELBA LOPEZ Jan 06, 2015 ADVANCE DIRECTIVE DISCUSSION MELBA LOPEZ Jun 14, 2013 ADVANCE DIRECTIVE DISCUSSION MELBA LOPEZ May 28, 2013 ADVANCE DIRECTIVE DISCUSSION YUE PENA May 24, 2012 ADVANCE DIRECTIVE DISCUSSION KAROLINE VÁZQUEZ [facility] May 22, 2012 ADVANCE DIRECTIVE DISCUSSION CHAITANYA BENNETT [facility] Oct 28, 2011 ADVANCE DIRECTIVE DISCUSSION MELBA LOPEZ Oct 18, 2010 ADVANCE DIRECTIVE DISCUSSION AKHIL CASTRO Dec 22, 2008 ADVANCE DIRECTIVE DISCUSSION GETACHEW WORLEY Nov 12, 2008 ADVANCE DIRECTIVE DISCUSSION JOELLE BULLARD Encounter Notes: All associated encounter notes This section contains the clinical notes associated to the Encounter. Date/Time Encounter Note(s) Provider Source May 02, 2025 04:00 PM NURSING PROGRESS N OTE: LOCAL TITLE: NURSING NOTE PB STANDARD TITLE: NURSING PROGRESS NOTE DATE OF NOTE: MAY 02, 2025@16:00 ENTRY DATE: MAY 02, 2025@16:00:21 AUTHOR: FEDERICO GERMAIN EXP COSIGNER: URGENCY: STATUS: COMPLETED Contacted and reviewed test result letter. Preble stated that he does not have a preference and stated to have the PCP best option for him to go to for biopsy of thyroid nodule. /bobby/ Federico Germain RN Rowley CBSERINA, AMELIA [facility] Signed: 05/02/2025 16:01 Receipt Acknowledged By: 05/03/2025 22:47 /bobby/ [facility] [place] [facility] April 07, 2025 08:58 AM PRIMARY CARE PROGR ESS NOTE: LOCAL TITLE: PRIMARY CARE CLINIC PROGRESS NOTE PB STANDARD TITLE: PRIMARY CARE PROGRESS NOTE DATE OF NOTE: APRIL 07, 2025@08:58 ENTRY DATE: APRIL 07, 2025@08:58:48 AUTHOR: LORELEI BROWN EXP COSIGNER: URGENCY: STATUS: COMPLETED PROVIDER ASSESSMENT DATE & TIME:March@08:58 CHIEF COMPLAINT: Follow up on thyroid nodules found on CT TAVR. HISTORY OF PRESENT ILLNESS: is being seen for follow up on thyroid nodules found on CT. needs a current CT scan. He is having open heart surgery next month for a valve replacement and bypass. This will happen on the 25 of April. 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 Indication: FOR ADHD REVIEW OF SYSTEMS: HEENT: No Headache. No blurry vision, vision loss, eye pain, red eyes, or foreign body. No runnynose, congestion, or nose bleed. No hearing loss, ringing in the ears, or vertigo. No sore throat or dental pain. RESPIRATORY: No cough, SOA, wheezing, or sputum production. CARDIOVASCULAR: No chest pain, palpitations, tachycardia, PND, or orthopnea. GI: No abdominal pain, nausea, vomiting, diarrhea, constipation, melena, or hematochezia. : No dysuria, hematuria, urinary frequency, weak stream, or post-void dribbling. MUSCULOSKELETAL:No muscle or joint pain. SKIN: No rash, lesions, or infection PSYCH: No Depression or Anxiety. Not suicidal. PHYSICAL ASSESSMENT: VITAL SIGNS Pulse: 69 (04/07/2025 08:51) Blood Pressure: 151/82 (04/07/2025 08:51) Respiratory Rate: 16 (04/07/2025 08:44) Temperature: 99.1 F [37.3 C] (01/03/2025 11:40) Weight: 230.8 lb [104.69 kg] (04/07/2025 08:44) Height: 71.0 in [180.3 cm] (04/07/2025 08:44) Pain: 0 (04/07/2025 08:44) NECK: Supple, no lymhadenopathy, thyroid normal. One nodule felt that is immobile on right lower side. Nontender. CARDIAC: Regular rate and rhythm with grade II murmur. No edema. RESPIRATORY: CTA, BEBS GI: Abdomen soft,with ABS. MUSCULOSKELETAL:No muscle or joint tenderness. FROM. SKIN: [place] without rash or lesions. NEUROLOGICAL: The Preble is alert and oriented without distress. Affect appropriate. IMPRESSION: Thyroid nodules-current Aortic Stenosis-current CAD-current PLAN: Will order thyroid ultrasound. RTC as previously scheduled. Patient is advised this primary care clinic has open access and he can make a same day appointment anytime a problem/concern arises. Patient further advised he can be seen on a walk-in basis as needed. Patient is provided clinic contact information. Medications reviewed and reconciled. Discussed diet and exercise as relevant to patient conditions. Treatment plan as noted above and the After Visit Summary was reviewed with ; opportunity provided to report concerns and ask question regarding aspects of care or treatment or services; concurrence reached and verbalized understanding. Please refer to addendum or follow up lab letter for plan of care/changes related to lab/test results not available at conclusion of appointment, if any. Discussed with patient that in the event of community imaging / testing being ordered in the future, once the imaging / testing has been completed, please notify PACT of within 1 week by a VA PACT member; this is due to intermittent lapses in notification of imaging completion within [facility]. All questions answered; agrees to plan of care. Follow up as listed above, annually, and as needed. Keep all completion at outside facility if not called with results appointments. Medications Reconciled. Time spent 30 minutes. /bobby/ BRAYDEN Ott MOMO [place] Signed: 04/07/2025 09:19 LORELEI BROWN April 07, 2025 08:45 AM PRIMARY CARE NURSI K[place] NOTE: LOCAL TITLE: PRIMARY CARE NURSING PROGRESS NOTE (TEXT) NURSING P STANDARD TITLE: PRIMARY CARE NURSING NOTE DATE OF NOTE: APRIL 07, 2025@08:45 ENTRY DATE: APRIL 07, 2025@08:45:45 AUTHOR: NILAM BEE EXP COSIGNER: URGENCY: STATUS: COMPLETED Established Patient FERNY STEPHENS IS A 59 YEAR OLD MALE BEING SEEN IN CLINIC APRIL 07, 2025. = = REASON FOR VISIT: Preble here today after a mass on his thyroid was found incidentially during a ct by cardiology in [facility]. Are you receiving care any where other than the [place]? No HEALTH AND SURGICAL HISTORY: Does patient report using home oxygen? No CURRENT ACTIVE MEDICATIONS FOR REVIEW: If the list for review does not include a component, then it was not applicable to this patient. Allergies/ADRs (Tool #5) FACILITY ALLERGY/ADR -------- [facility] IODINATED CONTRAST MEDIA [facility] IODINATED CONTRAST MEDIA [facility]. Reconciliation (Tool #1) INCLUDED IN THIS LIST: Alphabetical list of active outpatient prescriptions dispensed from this [place] (local) and dispensed from another [place] or [facility] facility (remote) as well as inpatient orders (local pending and active), local clinic medications, locally documented non-VA medications, and local prescriptions that have or been discontinued in the past 90 days. Non-VA Meds Last Documented On: Data not found NOTE The display of VA prescriptions dispensed from another [place] or [facility] facility (remote) is limited to active outpatient prescription entries matched to National Drug File at the originating site and may not include some items such as investigational drugs, compounds, etc. NOT INCLUDED IN THIS LIST: Medications self-entered by the patient into personal health records (i.e. [employer]) are NOT included in this list. Non-VA medications documented outside this [place], remote inpatient orders (regardless of status) and remote clinic medications are NOT included in this list. The patient and provider must always discuss medications the patient is taking, regardless of where the medication was dispensed or obtained. OUTPT METHYLPHENIDATE HCL 10MG TAB (Status = Discontinued) TAKE THREE TABLETS BY MOUTH TWICE A DAY FOR ADHD TAKE 30 TO 45 MINUTES BEFORE FOOD. Rx# [id number] Last Released: 01/15/25 Qty/Days Supply: 180/30 Rx Expiration Date: 02/13/25 Refills Remainin Indication: FOR ADHD OUTPT METHYLPHENIDATE HCL 10MG TAB (Status = ) TAKE THREE TABLETS BY MOUTH TWICE A DAY FOR ADHD TAKE 30 TO 45 MINUTES BEFORE FOOD. Rx# [id number] Last Released: 02/12/25 Qty/Days Supply: 180/30 Rx Expiration Date: 03/13/25 Refills Remainin Indication: FOR ADHD OUTPT METHYLPHENIDATE HCL 10MG TAB (Status = Active) TAKE THREE TABLETS BY MOUTH TWICE A DAY FOR ADHD TAKE 30 TO 45 MINUTES BEFORE FOOD. Rx# [id number] Last Released: 03/24/25 Qty/Days Supply: 180/30 Rx Expiration Date: 04/20/25 Refills Remainin Indication: FOR ADHD SUPPLIES PHARMACY TERMS AND POSSIBLE PATIENT ACTIONS INPT = [place] inpatient order IV = [place] intravenous medication OUTPT = [place] outpatient prescription PHARMACY POSSIBLE PATIENT TERMS EXPLANATION ACTIONS -------- ---- ACTIVE A prescription that can be If you have refills, filled at the local VA pharmacy. you may request a refill of this prescription from your VA pharmacy. CLINIC A medication you received during If you have questions a visit to a VA clinic or about this medication emergency department. contact your VA healthcare team. DISCONTINUED A prescription your provider has Contact your VA stopped. It is no longer healthcare team if you available to be sent to you or need more of this picked up at the [place] pharmacy medication. window. A prescription which is too old Contact your VA to fill. This does not refer to healthcare team if you the expiration date of the need more of this medication in the container. medication. NON-VA A medication that came from If this medication someplace other than a VA information is pharmacy. This may be a incorrect or out of prescription from either the VA date, please tell your or non VA providers that was VA healthcare team. filled outside the VA. Or, it may be an rdck-fog-ymsdawi (OTC), herbal, dietary supplements or sample medication. ON HOLD An active prescription that will Contact your VA not be filled until pharmacy pharmacy when you need resolves the issue. more of this medication. PARKED An active prescription that will Contact your VA not be filled until the patient pharmacy when you need requests it. this medication. PENDING This prescription order has been If you have been sent to the pharmacy for review instructed to start and is not ready yet. this medication now, contact your VA pharmacy. SUSPENDED An active prescription that is Contact your [place] not scheduled to be filled yet. pharmacy if you need You should receive it before this medication now. you run out. Medication list reviewed with Patient Patient/Caregiver reports taking medications as ordered. IS PATIENT TAKING ANY OVER THE COUNTER MEDICATIONS, SUCH VITAMINS OR HERBAL SUPPLEMENTS, INCLUDING ANY MEDICATIONS PRESCRIBED BY ANOTHER PHYSICIAN? No Does patient have any new allergies to report since last visit? NO VITALS: TEMPERATURE: 99.1 F [37.3 C] (01/03/2025 11:40) BP: 158/83 (04/07/2025 08:44) RESP: 16 (04/07/2025 08:44) PULSE: 74 (04/07/2025 08:44) HT: 71.0 in [180.3 cm] (04/07/2025 08:44) WT: 230.8 lb [104.69 kg] (04/07/2025 08:44) BMI: 32.3 PAIN ASSESSMENT: (Most Recent Pain Score in Vitals Package: 0 (04/07/2025 08:44) ) The patient indicated that they and their close contacts have not traveled outside of the [place] in the past 21 days. The patient reports the following symptoms: No symptoms present The patient is not immunocompromised. The patient does not report having a history of Multi Drug Resistant Organism (MDRO) within the last five years. The patient does not report having been exposed to measles, chickenpox, or zoster in last 30 days. Patient reports no pain at this visit. Pain Score = 0. STRESS: Thank you for your service. Now let us serve you. At the [facility], we strive to provide you with exceptional health care that improves your health and well-being. Are you feeling sad, empty, or depressed? No Do you need to talk about things in your life that worry you or cause you stress? No Do you need to talk about personal problems, family problems, alcohol use, drug use, or mental or emotional illness? No SUICIDE SCREENING: The patient was asked, Over the past two weeks, how often have you been bothered by thoughts that you would be better off or of hurting yourself in some way? Not At All SPIRITUAL ASSESSMENT: Are there methodist practices or spiritual concerns you want the letterer, your physician, and other health care team members to immediately know about? No Patient advised to call the clinic for any concerns, questions, or symptoms. Patient and/or caregiver verbalized understanding of plan of care. Pain Assessment: - PAIN ASSESSMENT: .. Patient reports no pain at this visit. Pain Score = 0. Patient's self identified pain goal: 0 /es/ NILAM BEE LPN Signed: 04/07/2025 08:54 NILAM BEE [facility]
--- OUTSIDE RECORDS SUMMARY | 2025-04-28 07:00 | XMS_ITS | Encounter Summary ---
Author Name [facility] [place] [place] [facility] [place] Organization [facility] [place] Address [address] [place] [address] Care Team Providers Care Concrete Worker Name Role Phone XIOMARA MAZARIEGOS Primary Care Provider UnavailLORELEI Miller Primary Care Provider Unavail able Selected Encounter This section includes the information on record at [place] for the Encounter. Date/Time Encounter Type Encounter Description Reason Pro vider Source Apr 28, 2025 12:00 PM Outpatient Encounter EVENT (HISTORICAL) IHE Encounter Template Text not used by [place] Plan of Treatment: Future Appointments (+ 6 months) and Future Tests (+/- 45 days) The Plan of Treatment section includes future care activities for the patient from all [place] treatmentfacilities. This section includes future appointments and future orders which are active, pending or scheduled. Future Appointments This section includes appointments that were scheduled to occur 6 months from the date of the Encounter, up to a maximum of 20 appointments. The data comes from all [place] treatment facilities. Appointment Date/Time Appointment Type Appointme nt Facility Name May 02, 2025 08:30 AM AMBULATORY - MEDICINE [facility] May 04, 2025 01:59 PM AMBULATORY - MEDICINE [facility] May 12, 2025 09:30 AM AMBULATORY - MEDICINE [facility] May 26, 2025 11:00 AM AMBULATORY - MEDICINE [facility] Jul 08, 2025 09:30 AM [facility]ICINE [facility] Active, Pending, and Scheduled Orders This section includes a listing of several types of active, pending, and scheduled orders, including clinic medications orders, diagnostic test orders, procedure orders and consult orders; where the start date of the order is 45 days before the date of the Encounter or 45 days after the date of theEncounter. The data comes from all [place] treatment facilities. Test Date/Time Test Type Test Details Facility Name Apr 30, 2025 01:54 PM Consult Order COMMUNITY CARE-OPHTH DIS MGMT 657A4 Cons Sock Examiner's Choice [facility]LAR BLUFF [facility] May 01, 2025 11:46 AM Consult Order COMMUNITY CARE-GEC SKILLED HOME CARE 657A4 Cons Sock Examiner's Choice [facility] May 03, 2025 10:47 PM Consult Order COMMUNITY CARE-ENDOCRINOLOGY 657A4 Cons Sock Examiner's [facility] Social History: Smoking Status (Most current) and Tobacco Use (All prior to encounter date) This section includes the most current, and the historical, smoking and tobacco- related health factors from the [place] facility where the Encounter took place. Current Smoking Status This section includes the most current smoking, or tobacco-related health factor, from the [place] facility where the Encounter took place. Date/Time Current Smoking Status Comment Facil ity Jul 04, 2023 11:15 AM [place]-TOBACCO FORMER USER [facility] Tobacco Use History This section includes a history of the smoking, or tobacco-related health factors, that were collected on or before the date of the Encounter. The data comes from the [place] facility where the Encounter took place. Date/Time Smoking Status/Tobacco Use Comment F acility Jul 04, 2023 11:15 AM [place]-TOBACCO QUIT 15 YRS OR MORE [facility] Advance Directives: All historical and current Section Date Range: From patient's date of to the date document was created. This section includes ALL of a patient's completed or amended [place] Advance and Rescinded Directives. The entries below indicate that a directive exists for the patient, but an actual copy is not included with this document. The data comes from all [place] facilities. Date Advance Directives Provider Source Jan 20, 2022 ADVANCE DIRECTIVE DISCUSSION ANNE WASHINGTON [facility] Jan 20, 2021 ADVANCE DIRECTIVE DISCUSSION ANNE WASHINGTON [facility] Dec 24, 2018 ADVANCE DIRECTIVE DISCUSSION MELBA LOPEZ [facility] Oct 09, 2017 ADVANCE DIRECTIVE DISCUSSION MELBA LOPEZ [facility] Apr 21, 2016 ADVANCE DIRECTIVE DISCUSSION MELBA LOPEZ [facility] Jan 06, 2015 ADVANCE DIRECTIVE DISCUSSION MELBA LOPEZ JUAN ANTONIO [facility] Jun 14, 2013 ADVANCE DIRECTIVE DISCUSSION MELBA LOPEZ JUAN ANTONIO [facility] May 28, 2013 ADVANCE DIRECTIVE DISCUSSION YUE PENA ROLY May 24, 2012 ADVANCE DIRECTIVE DISCUSSION [facility]AR[facility]INE [facility]Z [facility] May 22, 2012 ADVANCE DIRECTIVE DISCUSSION CHAITANYA BENNETT [facility] Oct 28, 2011 ADVANCE DIRECTIVE DISCUSSION MELBA LOPEZ [facility] Oct 18, 2010 ADVANCE DIRECTIVE DISCUSSION RAEAKHIL NUGENT Zoran DUNHAM Dec 22, 2008 ADVANCE DIRECTIVE DISCUSSION GETACHEW WORLEY Nov 12, 2008 ADVANCE DIRECTIVE DISCUSSION JOELLE BULLARD Encounter Notes: All associated encounter notes This section contains the clinical notes associated to the Encounter. Date/Time Encounter Note(s) Provider Source Apr 28, 2025 12:00 PM NONVA CONSULT: LOCAL TITLE: COMMUNITY CARE-CONSULT RESULT NOTE PB STANDARD TITLE: NONVA CONSULT DATE OF NOTE: APR 28, 2025@12:00 ENTRY DATE: APR 29, 2025@13:19:34 AUTHOR: NICANOR ANDREA EXP COSIGNER: URGENCY: STATUS: COMPLETED [facility] - Scanned Document WASHU 04/18/25 anesthesia eval 04/28/25 H&P and Op Note SCANNED DOCUMENT SIGNATURE NOT REQUIRED Electronically Filed: 04/29/2025 by: DAVID Fox [facility] NICANOR ANDREA [facility]
--- OUTSIDE RECORDS SUMMARY | 2025-04-30 02:21 | XMS_ITS | Encounter Summary ---
Author Name [facility] [place] Organization [facility] [place] Address [address] [place] [address] Care Team Providers Care Assistive Technology Trainer Name Role Phone XIOMARA MAZARIEGOS Primary Care Provider LORELEI Crook Primary Care Provider Unavail able Selected Encounter This section includes the information on record at [place] for the Encounter. Date/Time Encounter Type Encounter Description Reason Pro vider Source Apr 30, 2025 07:21 AM Outpatient Encounter COMMUNITY CARE CONSULT IHE Encounter Template Text not used by [place] Plan of Treatment: Future Appointments (+ 6 months) and Future Tests (+/- 45 days) The Plan of Treatment section includes future care activities for the patient from all [place] treatmentfacilities. This section includes future appointments and future orders which are active, pending or scheduled. Future Appointments This section includes appointments that were scheduled to occur 6 months from the date of the Encounter, up to a maximum of 20 appointments. The data comes from all [place] treatment facilities. Appointment Date/Time Appointment Type Appointme nt Facility Name May 02, 2025 08:30 AM AMBULATORY - MEDICINE [facility] May 04, 2025 01:59 PM AMBULATORY - MEDICINE [place] [facility] May 12, 2025 09:30 AM AMBULATORY - MEDICINE [facility] May 26, 2025 11:00 AM AMBULATORY - MEDICINE [facility] Jul 08, 2025 09:30 AM AMBULATORY - MEDICINE [facility] Active, Pending, and Scheduled Orders This section includes a listing of several types of active, pending, and scheduled orders, including clinic medications orders, diagnostic test orders, procedure orders and consult orders; where the start date of the order is 45 days before the date of the Encounter or 45 days after the date of theEncounter. The data comes from all [place] treatment facilities. Test Date/Time Test Type Test Details Facility Name Apr 30, 2025 01:54 PM Consult Order COMMUNITY CARE-OPHTH DIS MGMT [id number] Cons Clinical Dental Technician's Choice POPLAR BLUFF [facility] May 01, 2025 11:46 AM Consult Order COMMUNITY CARE-GEC SKILLED HOME CARE [id number] Cons Clinical Dental Technician's Choice [facility] May 03, 2025 10:47 PM Consult Order COMMUNITY CARE-ENDOCRINOLOGY 657A4 Cons Clinical Dental Technician's [facility] Social History: Smoking Status (Most current) and Tobacco Use (All prior to encounter date) This section includes the most current, and the historical, smoking and tobacco- related health factors from the [place] facility where the Encounter took place. Current Smoking Status This section includes the most current smoking, or tobacco-related health factor, from the [place] facility where the Encounter took place. Date/Time Current Smoking Status Comment Facil ity Jul 04, 2023 11:15 AM [place]-TOBACCO FORMER USER [facility] Tobacco Use History This section includes a history of the smoking, or tobacco-related health factors, that were collected on or before the date of the Encounter. The data comes from the [place] facility where the Encounter took place. Date/Time Smoking Status/Tobacco Use Comment F acility Jul 04, 2023 11:15 AM [place]-TOBACCO QUIT 15 YRS OR MORE [facility] Advance Directives: All historical and current Section Date Range: From patient's date of to the date document was created. This section includes ALL of a patient's completed or amended [place] Advance and Rescinded Directives. The entries below indicate that a directive exists for the patient, but an actual copy is not included with this document. The data comes from all [place] facilities. Date Advance Directives Provider Source Jan 20, 2022 ADVANCE DIRECTIVE DISCUSSION ANNE WASHINGTON [facility]] Jan 20, 2021 ADVANCE DIRECTIVE DISCUSSION ANNE WASHINGTON [facility]NOTE 2] Dec 24, 2018 ADVANCE DIRECTIVE DISCUSSION MELBA LOPEZ [facility]NOTE 2] Oct 09, 2017 ADVANCE DIRECTIVE DISCUSSION MELBA LOPEZ [facility]NOTE 2] Apr 21, 2016 ADVANCE DIRECTIVE DISCUSSION MELBA LOPEZ JUAN ANTONIO ROL[facility] Jan 06, 2015 ADVANCE DIRECTIVE DISCUSSION MELBA LOPEZ ROL[facility] Jun 14, 2013 ADVANCE DIRECTIVE DISCUSSION MELBA LOPEZ JUAN ANTONIO [facility] May 28, 2013 ADVANCE DIRECTIVE DISCUSSION YUE PENA ROLY May 24, 2012 ADVANCE DIRECTIVE DISCUSSION KAROLINE VÁZQUEZ [facility] May 22, 2012 ADVANCE DIRECTIVE DISCUSSION SABRINACHAITANYA A [facility] Oct 28, 2011 ADVANCE DIRECTIVE DISCUSSION MELBA LOPEZ JUAN ANTONIO [facility] Oct 18, 2010 ADVANCE DIRECTIVE DISCUSSION AKHIL CASTRO Zoran DUNHAM Dec 22, 2008 ADVANCE DIRECTIVE DISCUSSION GETACHEW WORLEY Nov 12, 2008 ADVANCE DIRECTIVE DISCUSSION JOELLE BULLARD Encounter Notes: All associated encounter notes This section contains the clinical notes associated to the Encounter. Date/Time Encounter Note(s) Provider Source Apr 30, 2025 07:21 AM NONVA NOTE: LOCAL TITLE: COMMUNITY CARE-REQUEST FOR SERVICE NOTE PB STANDARD TITLE: NONVA NOTE DATE OF NOTE: APR 30, 2025@07:21 ENTRY DATE: APR 30, 2025@07:21:50 AUTHOR: JACQUELINE SHIPLEY COSIGNER: URGENCY: STATUS: COMPLETED COMMUNITY CARE-REQUEST FOR SERVICE NOTE PB Has ADDENDA Request for Services (RFS) documentation has been sent for scanning to [facility] Community Care Consult: COMMUNITY CARE-Ophth Surgical Services Consult No: [id number] Date sent to scanning: Apr A Request for Service (RFS) form [id number] has been received which includes the following: Care Requested:cont of care with Dr Jonel De La O, Dx H40.1131, Z96.1, H02.831, H02.834, H17.11. Appt is scheduled 05/01/25 at 0830 ICD-10 Dx code: H40.1131, Z96.1, H02.831, H02.834, H17.1 Date [place] received request: Apr Date service required: Apr Requesting Community Provider Information: [facility] Jonel De La O Npi: [id number] [address] [place] [address] /es/ JACQUELINE SHIPLEY RN Signed: 04/30/2025 07:31 04/30/2025 ADDENDUM STATUS: COMPLETED [facility] Scanned Document - Addendum. Request for Services (RFS) documentation has been sent for scanning to [facility] Community Care Consult: COMMUNITY CARE-Ophth Surgical Services Consult No: [id number] Date sent to scanning: Apr SCANNED DOCUMENT SIGNATURE NOT REQUIRED Electronically Filed: 04/30/2025 by: JACQUELINE Rendon [facility]
--- OUTSIDE RECORDS SUMMARY | 2025-04-30 04:28 | XMS_ITS | Encounter Summary ---
Author Name [facility] [place] [facility] [place] Organization [place] Address [address] [place] [address] Care Team Providers Care Substation Electrician Supervisor Name Role Phone XIOMARA MAZARIEGOS Primary Care Provider LORELEI Crook Primary Care Provider Unavail able Selected Encounter This section includes the information on record at [place] for the Encounter. Date/Time Encounter Type Encounter Description Reason Pro vider Source Apr 30, 2025 09:28 AM Outpatient Encounter COMMUNITY CARE CONSULT IHE Encounter Template Text not used by [place] Plan of Treatment: Future Appointments (+ 6 months) and Future Tests (+/- 45 days) The Plan of Treatment section includes future care activities for the patient from all [place] treatmentfacilities. This section includes future appointments and future orders which are active, pending or scheduled. Future Appointments This section includes appointments that were scheduled to occur 6 months from the date of the Encounter, up to a maximum of 20 appointments. The data comes from all [place] treatment facilities. Appointment Date/Time Appointment Type Appointme nt Facility Name May 02, 2025 08:30 AM AMBULATORY - MEDICINE [facility] May 04, 2025 01:59 PM AMBULATORY - MEDICINE [facility] [place] BL[facility]FF [facility] May 12, 2025 09:30 AM AMBULATORY - MEDICINE [facility] May 26, 2025 11:00 AM AMBULATORY - MEDICINE [facility] Jul 08, 2025 09:30 AM AMBULATORY - MEDICINE [facility] Active, Pending, and Scheduled Orders This section includes a listing of several types of active, pending, and scheduled orders, including clinic medications orders, diagnostic test orders, procedure orders and consult orders; where the start date of the order is 45 days before the date of the Encounter or 45 days after the date of theEncounter. The data comes from all [place] treatment facilities. Test Date/Time Test Type Test Details Facility Name Apr 30, 2025 01:54 PM Consult Order COMMUNITY CARE-OPHTH DIS MGMT [id number] Cons [place] Washer's Choice [facility] May 01, 2025 11:46 AM Consult Order COMMUNITY CARE-GEC SKILLED HOME CARE [id number] Cons [place] Washer's Choice [facility] May 03, 2025 10:47 PM Consult Order COMMUNITY CARE-ENDOCRINOLOGY 657A4 Cons [place] Washer's [facility] Social History: Smoking Status (Most current) and Tobacco Use (All prior to encounter date) This section includes the most current, and the historical, smoking and tobacco- related health factors from the [place] facility where the Encounter took place. Current Smoking Status This section includes the most current smoking, or tobacco-related health factor, from the [place] facility where the Encounter took place. Date/Time Current Smoking Status Comment Facil ity Jul 04, 2023 11:15 AM [place]-TOBACCO FORMER USER [facility] Tobacco Use History This section includes a history of the smoking, or tobacco-related health factors, that were collected on or before the date of the Encounter. The data comes from the [place] facility where the Encounter took place. Date/Time Smoking Status/Tobacco Use Comment F acility Jul 04, 2023 11:15 AM [place]-TOBACCO QUIT 15 YRS OR MORE [facility] Advance Directives: All historical and current Section Date Range: From patient's date of to the date document was created. This section includes ALL of a patient's completed or amended [place] Advance and Rescinded Directives. The entries below indicate that a directive exists for the patient, but an actual copy is not included with this document. The data comes from all [place] facilities. Date Advance Directives Provider Source Jan 20, 2022 ADVANCE DIRECTIVE DISCUSSION ANNE WASHINGTON [facility] Jan 20, 2021 ADVANCE DIRECTIVE DISCUSSION ANNE WASHINGTON [facility] Dec 24, 2018 ADVANCE DIRECTIVE DISCUSSION MELBA LOPEZ [facility] Oct 09, 2017 ADVANCE DIRECTIVE DISCUSSION MELBA LOPEZ [facility] Apr 21, 2016 ADVANCE DIRECTIVE DISCUSSION MELBA LOPEZ [facility] Jan 06, 2015 ADVANCE DIRECTIVE DISCUSSION MELBA LOPEZ [facility] Jun 14, 2013 ADVANCE DIRECTIVE DISCUSSION MELBA LOPEZ [facility] May 28, 2013 ADVANCE DIRECTIVE DISCUSSION YUE PENA ROLY May 24, 2012 ADVANCE DIRECTIVE DISCUSSION KAROLINE VÁZQUEZ [facility] May 22, 2012 ADVANCE DIRECTIVE DISCUSSION SABRINACHAITANYA A [facility] Oct 28, 2011 ADVANCE DIRECTIVE DISCUSSION MELBA LOPEZ [facility] Oct 18, 2010 ADVANCE DIRECTIVE DISCUSSION AKHIL CASTRO [facility] Dec 22, 2008 ADVANCE DIRECTIVE DISCUSSION GETCAHEW WORLEY Nov 12, 2008 ADVANCE DIRECTIVE DISCUSSION JOELLE BULLARD Encounter Notes: All associated encounter notes This section contains the clinical notes associated to the Encounter. Date/Time Encounter Note(s) Provider Source Apr 30, 2025 09:32 AM LETTERS: LOCAL TITLE: [facility] CARE-REQUEST FOR SERVICES (RFS) LETTER PB STANDARD TITLE: LETTERS DATE OF NOTE: APR 30, 2025@09:32 ENTRY DATE: APR 30, 2025@09:32:48 AUTHOR: JACQUELINE SHIPLEY COSIGNER: URGENCY: STATUS: COMPLETED [facility] Dr Jonel De La O [address] [place] [address] Dear Provider, [place] Information: Patient Name: FERNY STEPHENS Date of : Aug [facility] has received the request for a new authorization for continuation of care. A new consult has been requested from [facility]; once consult has been entered, and processed a new authorization will be faxed to the appropriate office. Should you have questions, please contact Forgeman Helper Stormy Shipley at [phone] ext [phone]. As a reminder, if applicable, return medical records within 30 days for routine services. Sincerely, Stormy Shipley head filter press tender As of 05/31/21, I have been advised that no RFS will be processed unless it is signed by PROVIDER and includes medical documentation, if documentation has previously been sent please note upon this RFS. Please fax all RFS's to [phone]. JACQUELINE SHIPLEY [facility]
--- OUTSIDE RECORDS SUMMARY | 2025-04-30 08:15 | XMS_ITS | Encounter Summary ---
Author Name [place] Address [address] [place] [address] Care Team Providers Care Turbinated Bone Grinder Name Role Phone XIOMARA MAZARIEGOS Primary Care Provider Unavailabl e LORELEI BROWN Primary Care Provider Unavail able Selected Encounter This section includes the information on record at [place] for the Encounter. Date/Time Encounter Type Encounter Description Reason Pro vider Source Apr 30, 2025 01:15 PM Outpatient Encounter ADMIN PAT ACTIVTIES (MASNONCT) IHE Encounter Template Text not used by [place] Plan of Treatment: Future Appointments (+ 6 months) and Future Tests (+/- 45 days) The Plan of Treatment section includes future care activities for the patient from all [place] treatmentfacilities. This section includes future appointments and future orders which are active, pending or scheduled. Future Appointments This section includes appointments that were scheduled to occur 6 months from the date of the Encounter, up to a maximum of 20 appointments. The data comes from all [place] treatment facilities. Appointment Date/Time Appointment Type Appointme nt Facility Name May 02, 2025 08:30 AM AMBULATORY - MEDICINE POPL MALIKA LEMUSANALY [facility] May 04, 2025 01:59 PM AMBULATORY - MEDICINE POPL AR BLANALY [facility] May 12, 2025 09:30 AM AMBULATORY - MEDICINE [facility] May 26, 2025 11:00 AM AMBULATORY - MEDICINE [facility] Jul 08, 2025 09:30 AM AMBULATORY - MEDICINE [facility] Active, Pending, and Scheduled Orders This section includes a listing of several types of active, pending, and scheduled orders, including clinic medications orders, diagnostic test orders, procedure orders and consult orders; where the start date of the order is 45 days before the date of the Encounter or 45 days after the date of theEncounter. The data comes from all [place] treatment facilities. Test Date/Time Test Type Test Details Facility Name Apr 30, 2025 01:54 PM Consult Order COMMUNITY CARE-OPHTH DIS MGMT 657A4 Cons Pharmacist Intern's Choice POPLAR BLUFF [facility] May 01, 2025 11:46 AM Consult Order COMMUNITY CARE[facility] [id number] Cons Pharmacist Intern's Choice [facility] May 03, 2025 10:47 PM Consult Order COMMUNITY CARE-ENDOCRINOLOGY [id number] [facility] Pharmacist Intern's Choice [facility] Advance Directives: All historical and current Section Date Range: From patient's date of to the date document was created. This section includes ALL of a patient's completed or amended [place] Advance and Rescinded Directives. The entries below indicate that a directive exists for the patient, but an actual copy is not included with this document. The data comes from all [place] facilities. Date Advance Directives Provider Source Jan 20, 2022 ADVANCE DIRECTIVE DISCUSSION ANNE WASHINGTON [facility] Jan 20, 2021 ADVANCE DIRECTIVE DISCUSSION ANNE WASHINGTON [facility] Dec 24, 2018 ADVANCE DIRECTIVE DISCUSSION MELBA LOPEZ [facility] Oct 09, 2017 ADVANCE DIRECTIVE DISCUSSION MELBA LOPEZ [facility] Apr 21, 2016 ADVANCE DIRECTIVE DISCUSSION MELBA LOPEZ Jan 06, 2015 ADVANCE DIRECTIVE DISCUSSION MELBA LOPEZ Jun 14, 2013 ADVANCE DIRECTIVE DISCUSSION MELBA LOPEZ May 28, 2013 ADVANCE DIRECTIVE DISCUSSION YUE PENA May 24, 2012 ADVANCE DIRECTIVE DISCUSSION KAROLINE VÁZQUEZ [facility] May 22, 2012 ADVANCE DIRECTIVE DISCUSSION CHAITANYA BENNETT [facility] Oct 28, 2011 ADVANCE DIRECTIVE DISCUSSION MELBA LOPEZ Oct 18, 2010 ADVANCE DIRECTIVE DISCUSSION AKHIL CASTRO Dec 22, 2008 ADVANCE DIRECTIVE DISCUSSION GETACHEW WORLEY Nov 12, 2008 ADVANCE DIRECTIVE DISCUSSION JOELLE BULLARD Encounter Notes: All associated encounter notes This section contains the clinical notes associated to the Encounter. Date/Time Encounter Note(s) Provider Source May 01, 2025 10:02 AM ADDENDUM: LOCAL TITLE: Addendum STANDARD TITLE: ADDENDUM DATE OF NOTE: MAY 01, 2025@10:02:20 ENTRY DATE: MAY 01, 2025@10:02:22 AUTHOR: FEDERICO GERMAIN COSIGNER: URGENCY: STATUS: COMPLETED is needing snf set up for PT, OT and snf. She stated that the [facility] is discharging tomorrow. diag is aortic valve stenosis. /es/ KAREN Marie, [facility] Signed: 05/01/2025 10:17 Receipt Acknowledged By: 05/01/2025 11:52 /es/ Lorelei Brown [facility] MOMO [place] --- Original Document --- 04/30/25 CCC: SCHEDULING ADMINISTRATION: Caller Verification Emergency Contact: KIM QUEZADA Emergency Contact Caller/Recipient Relation to Patient: Self Caller Name: FERNY STEPHENS Administrative Administrative Note Reason: Other Administrative Note Comments: KAREN NO CALLING TO PLACE A HOMEHEALTH CONSULT PLACED, REQUESTING A CALL BACK ON [phone]. IMPORTANT: This note was created by [facility] Clinical Contact Center staff. Please do not alert the staff member by adding them as a signer for future communications. Alerts are not monitored by this user. /es/ ASHU CARLOS Signed: 04/30/2025 13:15 Receipt Acknowledged By: 05/01/2025 10:02 /bobby/ KAREN Marie, [facility] FEDERICO GERMAIN [facility] Apr 30, 2025 01:15 PM ADMINISTRATIVE NOT E: LOCAL TITLE: CCC: SCHEDULING ADMINISTRATION STANDARD TITLE: ADMINISTRATIVE NOTE DATE OF NOTE: APR 30, 2025@13:15:31 ENTRY DATE: APR 30, 2025@13:15:31 AUTHOR: ASHU CARLOS ED COSIGNER: URGENCY: STATUS: COMPLETED CCC: SCHEDULING ADMINISTRATION Has ADDENDA Caller Verification Emergency Contact: KIM QUEZADA Emergency Contact Caller/Recipient Relation to Patient: Self Caller Name: FERNY STEPHENS Administrative Administrative Note Reason: Other Administrative Note Comments: KAREN NO CALLING TO PLACE A HOMEHEALTH CONSULT PLACED, REQUESTING A CALL BACK ON [phone]. IMPORTANT: This note was created by [facility] staff. Please do not alert the staff member by adding them as a signer for future communications. Alerts are not monitored by this user. /es/ ASHU CARLOS Signed: 04/30/2025 13:15 Receipt Acknowledged By: 05/01/2025 10:02 /es/ KAREN Marie [facility], [facility] 05/01/2025 ADDENDUM STATUS: COMPLETED is needing snf set up for PT, OT and snf. She stated that the is discharging tomorrow. [facility] diag is aortic valve stenosis. /bobby/ KAREN Marie [place] [facility], [facility] Signed: 05/01/2025 10:17 Receipt Acknowledged By: * AWAITING SIGNATURE * LORELEI BROWN VALERIE EDITH POPLAR BLUFF [facility]
--- OUTSIDE RECORDS SUMMARY | 2025-04-30 08:20 | XMS_ITS | Encounter Summary ---
Author Name [facility] [place] [facility] [place] Address [address] [place] [address] Care Team Providers Care Front Maker Name Role Phone LORELEI BROWN Primary Care Provider Unavail able XIOMARA MAZARIEGOS Primary Care Provider Unavailabl e Selected Encounter This section includes the information on record at [place] for the Encounter. Date/Time Encounter Type Encounter Description Reason Pro vider Source Apr 30, 2025 01:20 PM Outpatient Encounter ADMIN PAT ACTIVTIES (MASNONCT) IHE Encounter Template Text not used by [place] Plan of Treatment: Future Appointments (+ 6 months) and Future Tests (+/- 45 days) The Plan of Treatment section includes future care activities for the patient from all [place] treatmentfacilities. This section includes future appointments and future orders which are active, pending or scheduled. Future Appointments This section includes appointments that were scheduled to occur 6 months from the date of the Encounter, up to a maximum of 20 appointments. The data comes from all [place] treatment facilities. Appointment Date/Time Appointment Type Appointme nt Facility Name May 02, 2025 08:30 AM AMBULATORY - MEDICINE POPL MALIKA LEMUSANALY [facility] May 04, 2025 01:59 PM AMBULATORY - MEDICINE POPL AR BLANALY [facility] May 12, 2025 09:30 AM AMBULATORY - MEDICINE [facility] May 26, 2025 11:00 AM AMBULATORY - MEDICINE [facility] Jul 08, 2025 09:30 AM AMBULATORY - MEDICINE [facility] Active, Pending, and Scheduled Orders This section includes a listing of several types of active, pending, and scheduled orders, including clinic medications orders, diagnostic test orders, procedure orders and consult orders; where the start date of the order is 45 days before the date of the Encounter or 45 days after the date of theEncounter. The data comes from all [place] treatment facilities. Test Date/Time Test Type Test Details Facility Name Apr 30, 2025 01:54 PM Consult Order COMMUNITY CARE-OPHTH DIS MGMT [id number] Cons Ocean Freight Agent's Choice POPLAR BLUFF [facility] May 01, 2025 11:46 AM Consult Order COMMUNITY CARE-[facility] SKILLED HOME CARE [id number] Cons Ocean Freight Agent's Choice [facility] May 03, 2025 10:47 PM Consult Order COMMUNITY CARE-ENDOCRINOLOGY [id number] [facility] Ocean Freight Agent's Choice [facility] Advance Directives: All historical and current Section Date Range: From patient's date of to the date document was created. This section includes ALL of a patient's completed or amended [place] Advance and Rescinded Directives. The entries below indicate that a directive exists for the patient, but an actual copy is not included with this document. The data comes from all [place] facilities. Date Advance Directives Provider Source Jan 20, 2022 ADVANCE DIRECTIVE DISCUSSION ANNE WASHINGTON [facility] Jan 20, 2021 ADVANCE DIRECTIVE DISCUSSION ANNE WASHINGTON [facility] Dec 24, 2018 ADVANCE DIRECTIVE DISCUSSION MELBA LOPEZ [facility] Oct 09, 2017 ADVANCE DIRECTIVE DISCUSSION MELBA LOPEZ [facility] Apr 21, 2016 ADVANCE DIRECTIVE DISCUSSION MELBA LOPEZ Jan 06, 2015 ADVANCE DIRECTIVE DISCUSSION MELBA LOPEZ Jun 14, 2013 ADVANCE DIRECTIVE DISCUSSION MELBA LOPEZ May 28, 2013 ADVANCE DIRECTIVE DISCUSSION YUE PENA May 24, 2012 ADVANCE DIRECTIVE DISCUSSION KAROLINE VÁZQUEZ [facility] May 22, 2012 ADVANCE DIRECTIVE DISCUSSION CHAITANYA BENNETT [facility] Oct 28, 2011 ADVANCE DIRECTIVE DISCUSSION MELBA LOPEZ Oct 18, 2010 ADVANCE DIRECTIVE DISCUSSION AKHIL CASTRO Dec 22, 2008 ADVANCE DIRECTIVE DISCUSSION GETACHEW WORLEY Nov 12, 2008 ADVANCE DIRECTIVE DISCUSSION JOELLE BULLARD Encounter Notes: All associated encounter notes This section contains the clinical notes associated to the Encounter. 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 Alerting RNCM. IMPORTANT: This note was created by [facility] Clinical Contact Center staff. Please do not alert the staff member by adding them as a signer for future communications. Alerts are not monitored by this user. /bobby/ LILIAN PACHECO ADVANCED RATINGS ANALYST Signed: 04/30/2025 13:20 Receipt Acknowledged By: 05/01/2025 11:13 /bobby/ Aide Bass RN [facility], JJP [facility] LILIAN PACHECO [facility]
--- OUTSIDE RECORDS SUMMARY | 2025-05-01 06:17 | XMS_ITS | Encounter Summary ---
Author Name [facility] [place] Organization [place] Address [address] [place] [address] Care Team Providers Care Sourcing Assistant Name Role Phone LORELEI BROWN Primary Care Provider Unavail able XIOMARA MAZARIEGOS Primary Care Provider Unavailabl e Selected Encounter This section includes the information on record at [place] for the Encounter. Date/Time Encounter Type Encounter Description Reason Pro vider Source May 01, 2025 11:17 AM Outpatient Encounter COMMUNITY CARE CONSULT IHE Encounter Template Text not used by [place] Plan of Treatment: Future Appointments (+ 6 months) and Future Tests (+/- 45 days) The Plan of Treatment section includes future care activities for the patient from all [place] treatmentfacilities. This section includes future appointments and future orders which are active, pending or scheduled. Future Appointments This section includes appointments that were scheduled to occur 6 months from the date of the Encounter, up to a maximum of 20 appointments. The data comes from all [place] treatment facilities. Appointment Date/Time Appointment Type Appointme nt Facility Name May 02, 2025 08:30 AM AMBULATORY - MEDICINE POPL AR BLANALY [facility] May 04, 2025 01:59 PM AMBULATORY - MEDICINE POPL AR BLANALY [facility] May 12, 2025 09:30 AM AMBULATORY - MEDICINE [facility] May 26, 2025 11:00 AM AMBULATORY - MEDICINE [facility] Jul 08, 2025 09:30 AM AMBULATORY - MEDICINE [facility] Active, Pending, and Scheduled Orders This section includes a listing of several types of active, pending, and scheduled orders, including clinic medications orders, diagnostic test orders, procedure orders and consult orders; where the start date of the order is 45 days before the date of the Encounter or 45 days after the date of theEncounter. The data comes from all [place] treatment facilities. Test Date/Time Test Type Test Details Facility Name Apr 30, 2025 01:54 PM Consult Order COMMUNITY CARE-OPHTH DIS MGMT [id number] Cons Specimen Accessioner's Choice POPLAR BLUFF [facility] May 01, 2025 11:46 AM Consult Order COMMUNITY CARE-[facility] SKILLED HOME CARE [id number] Cons Specimen Accessioner's Choice [facility] May 03, 2025 10:47 PM Consult Order COMMUNITY CARE-ENDOCRINOLOGY [id number] Cons Specimen Accessioner's [facility] Social History: Smoking Status (Most current) and Tobacco Use (All prior to encounter date) This section includes the most current, and the historical, smoking and tobacco- related health factors from the [place] facility where the Encounter took place. Current Smoking Status This section includes the most current smoking, or tobacco-related health factor, from the [place] facility where the Encounter took place. Date/Time Current Smoking Status Comment Facil ity Jul 04, 2023 11:15 AM [place]-TOBACCO FORMER USER [facility] Tobacco Use History This section includes a history of the smoking, or tobacco-related health factors, that were collected on or before the date of the Encounter. The data comes from the [place] facility where the Encounter took place. Date/Time Smoking Status/Tobacco Use Comment F acility Jul 04, 2023 11:15 AM PA-TOBACCO QUIT 15 YRS OR MORE [facility] Advance Directives: All historical and current Section Date Range: From patient's date of to the date document was created. This section includes ALL of a patient's completed or amended [place] Advance and Rescinded Directives. The entries below indicate that a directive exists for the patient, but an actual copy is not included with this document. The data comes from all [place] facilities. Date Advance Directives Provider Source Jan 20, 2022 ADVANCE DIRECTIVE DISCUSSION ANNE WASHINGTON [facility] Jan 20, 2021 ADVANCE DIRECTIVE DISCUSSION ANNE WASHINGTON [facility] Dec 24, 2018 ADVANCE DIRECTIVE DISCUSSION MELBA LOPEZ [facility] Oct 09, 2017 ADVANCE DIRECTIVE DISCUSSION MELBA LOPEZ [facility] Apr 21, 2016 ADVANCE DIRECTIVE DISCUSSION MELBA LOPEZ [facility] Jan 06, 2015 ADVANCE DIRECTIVE DISCUSSION MELBA LOPEZ [facility] Jun 14, 2013 ADVANCE DIRECTIVE DISCUSSION MELBA LOPEZ JUAN ANTONIO [facility] May 28, 2013 ADVANCE DIRECTIVE DISCUSSION YUE PENA [facility] May 24, 2012 ADVANCE DIRECTIVE DISCUSSION KAROLINE VÁZQUEZ [facility] May 22, 2012 ADVANCE DIRECTIVE DISCUSSION SABRINACHAITANYA A [facility] Oct 28, 2011 ADVANCE DIRECTIVE DISCUSSION MELBA LOPEZ JUAN ANTONIO [facility] Oct 18, 2010 ADVANCE DIRECTIVE DISCUSSION AKHIL CASTRO Zor[facility] Dec 22, 2008 ADVANCE DIRECTIVE DISCUSSION GETACHEW WORLEY Nov 12, 2008 ADVANCE DIRECTIVE DISCUSSION JOELLE BULLARD Encounter Notes: All associated encounter notes This section contains the clinical notes associated to the Encounter. Date/Time Encounter Note(s) Provider Source May 01, 2025 11:17 AM LETTERS: LOCAL TITLE: COMMUNITY CARE-REFERRAL PB (AUTO-PRINT) STANDARD TITLE: LETTERS DATE OF NOTE: MAY 01, 2025@11:17:49 ENTRY DATE: MAY 01, 2025@11:17:50 AUTHOR: ESTEBAN SANDERS COSIGNER: URGENCY: STATUS: COMPLETED Ferny Stephens [address] [place], [place] [address] Dear FERNY STEPHENS, Your VA provider has referred you to a provider within the community for care. Your medical care for Ophthalmology has been authorized with the Community Care Provider listed below. DO NOT REPORT TO THE [facility] Provider info: An appointment has been scheduled for you on: May 02, 2025 08:[address] [facility] [address] Jonel De La O [address] [place] [id number] Referral Number: [id number] Referral Issue Date: 2025-05-01 Expiration Date: 2026-05-02 If you are unable to keep this appointment or the appointment is no longer needed, please contact the community provider above for notification/rescheduling and then call the Sly Ponce [place] Community Care Office at [phone] Ext [phone]. If you need additional care/services not mentioned above, please contact your primary care provider for a new referral. Co-Payments: If you are required to pay a VA co-payment, you will be billed by the VA for each authorized visit that you attend. However, you are NOT REQUIRED to make co-payments to a Community Provider. Prescriptions: Your community provider may write a prescription related to the authorized care. If there is an immediate need for your prescriptions from your community care visit, you may be able to get up to a 14-day fill of your prescription at your own expense for the cost of the medication, and may seek reimbursement from the VA. If you require more than a 14-day supply or if the prescribed medication is not immediately needed, your community provider will send a prescription to a VA pharmacy so that the VA can provide you with your routine medication. In-network locations can be found at https://www.va.gov/find-loc ations/ Medical Devices: Your community provider may recommend that medical devices, adapted equipment, or other items be provided for the treatment or rehabilitation of your medical condition. Veterans are generally required to obtain these items through the Prosthetics and Sensory Aids Service (PSAS) in your referring facility. Emergency/Inpatient Services: You, your community provider, or your family must provide notification within 72hr or ER visit and/or admission by [phone]. Thank you for the opportunity to serve you and for your service to our great nation! Esteban Ponce [facility] Care in the Community [address] [place] [address] ESTEBAN SANDERS [facility]
--- OUTSIDE RECORDS SUMMARY | 2025-05-01 08:34 | XMS_ITS | Encounter Summary ---
Author Name [facility] Organization [place] Address [address] [place] [address] Care Team Providers Care Scout Leaser Name Role Phone XIOMARA MAZARIEGOS Primary Care Provider UnavailLORELEI Miller Primary Care Provider Unavail able Selected Encounter This section includes the information on record at [place] for the Encounter. Date/Time Encounter Type Encounter Description Reason Pro vider Source May 01, 2025 01:34 PM Outpatient Encounter COMMUNITY CARE CONSULT IHE Encounter Template Text not used by [place] Plan of Treatment: Future Appointments (+ 6 months) and Future Tests (+/- 45 days) The Plan of Treatment section includes future care activities for the patient from all [place] treatmentfacilities. This section includes future appointments and future orders which are active, pending or scheduled. Future Appointments This section includes appointments that were scheduled to occur 6 months from the date of the Encounter, up to a maximum of 20 appointments. The data comes from all [place] treatment facilities. Appointment Date/Time Appointment Type Appointme nt Facility Name May 02, 2025 08:30 AM AMBULATORY - MEDICINE POP[facility] AR BLANALY [facility] May 04, 2025 01:59 PM AMBULATORY - MEDICINE POP[place] BLUFF [facility] May 12, 2025 09:30 AM AMBULATORY - MEDICINE [facility] May 26, 2025 11:00 AM AMBULATORY - MEDICINE [facility] Jul 08, 2025 09:30 AM AMBULATORY - MEDICINE [facility] Active, Pending, and Scheduled Orders This section includes a listing of several types of active, pending, and scheduled orders, including clinic medications orders, diagnostic test orders, procedure orders and consult orders; where the start date of the order is 45 days before the date of the Encounter or 45 days after the date of theEncounter. The data comes from all [place] treatment facilities. Test Date/Time Test Type Test Details Facility Name Apr 30, 2025 01:54 PM Consult Order COMMUNITY CARE-OPHTH DIS MGMT 657A4 Cons Shrink Pit Operator's Choice POPLAR BLUFF [facility] May 01, 2025 11:46 AM Consult Order COMMUNITY CARE-GEC SKILLED HOME CARE 657A4 Cons Shrink Pit Operator's Choice [facility] May 03, 2025 10:47 PM Consult Order COMMUNITY CARE-ENDOCRINOLOGY 657A4 Cons Shrink Pit Operator's [facility] Social History: Smoking Status (Most current) and Tobacco Use (All prior to encounter date) This section includes the most current, and the historical, smoking and tobacco- related health factors from the [place] facility where the Encounter took place. Current Smoking Status This section includes the most current smoking, or tobacco-related health factor, from the [place] facility where the Encounter took place. Date/Time Current Smoking Status Comment Facil ity Jul 04, 2023 11:15 AM [place]-TOBACCO FORMER USER [facility] Tobacco Use History This section includes a history of the smoking, or tobacco-related health factors, that were collected on or before the date of the Encounter. The data comes from the [place] facility where the Encounter took place. Date/Time Smoking Status/Tobacco Use Comment F acility Jul 04, 2023 11:15 AM [place]-TOBACCO QUIT 15 YRS OR MORE [facility] Advance Directives: All historical and current Section Date Range: From patient's date of to the date document was created. This section includes ALL of a patient's completed or amended [place] Advance and Rescinded Directives. The entries below indicate that a directive exists for the patient, but an actual copy is not included with this document. The data comes from all [place] facilities. Date Advance Directives Provider Source Jan 20, 2022 ADVANCE DIRECTIVE DISCUSSION [facility]NE [facility] Jan 20, 2021 ADVANCE DIRECTIVE DISCUSSION ANNE [facility] Dec 24, 2018 ADVANCE DIRECTIVE DISCUSSION MELBA LOPEZ [facility] Oct 09, 2017 ADVANCE DIRECTIVE DISCUSSION MELBA LOPEZ [facility] Apr 21, 2016 ADVANCE DIRECTIVE DISCUSSION MELBA LOPEZ JUAN ANTONIO ROLY Jan 06, 2015 ADVANCE DIRECTIVE DISCUSSION MELBA LOPEZ ROLY Jun 14, 2013 ADVANCE DIRECTIVE DISCUSSION MELBA LOPEZ JUAN ANTONIO ROLY May 28, 2013 ADVANCE DIRECTIVE DISCUSSION YUE PENA ROLY May 24, 2012 ADVANCE DIRECTIVE DISCUSSION KAROLINE VÁZQUEZ [facility] May 22, 2012 ADVANCE DIRECTIVE DISCUSSION SABRINACHAITANYA A [facility] Oct 28, 2011 ADVANCE DIRECTIVE DISCUSSION MELBA LOPEZ JUAN ANTONIO ROLY Oct 18, 2010 ADVANCE DIRECTIVE DISCUSSION AKHIL CASTRO Zoran DUNHAM Dec 22, 2008 ADVANCE DIRECTIVE DISCUSSION GETACHEW WORLEY Nov 12, 2008 ADVANCE DIRECTIVE DISCUSSION JOELLE BULLARD Encounter Notes: All associated encounter notes This section contains the clinical notes associated to the Encounter. Date/Time Encounter Note(s) Provider Source May 01, 2025 01:34 PM GERIATRIC MEDICINE FINANCIAL SERVICES EDUCATION CONSULTANT NOTE: LOCAL TITLE: [facility] [place] CARE COORDINATION TEAM NOTE STANDARD TITLE: GERIATRIC MEDICINE FINANCIAL SERVICES EDUCATION CONSULTANT NOTE DATE OF NOTE: MAY 01, 2025@13:34 ENTRY DATE: MAY 01, 2025@13:35:37 AUTHOR: IRINA GROSSMAN COSIGNER: URGENCY: STATUS: COMPLETED THE PATIENT HAS BEEN REFERRED TO THE FOLLOWING SERVICES HOME CARE SERVICES: Community skilled Home Health Care SN, PT, OT HOME CARE SERVICE FUNDING: [place]: [employer] Date service is projected to start: [id number] Date service is projected to end: 284315 DURATION OF CARE: SKILLED/INHOME: 120 DAYS NAME OF AGENCY TO PROVIDE SERVICES: Agency: [facility] (formerly [facility]) Address: [address] [place] [address] Office: [phone] or please use this [phone] email: [email or web address]; [email or web address]; [email or web address]; [email or web address]; CCN: Region 2 Tax ID: [id number] -HOME Health. Checked [id number]. Contact: Laya Kay Daelyn, Brittany (Clinical Mgr), Hodan Humphrey *Please send all correspondence/orders to GLENNA Quintana. Helpful phone numbers: Mau Angela [facility] Metal Bonding Press Operator - [phone] [place] phone: [phone]; fax: [phone] '[facility]' team - GLENNA Quintana's RN Radha Bass [id number] Care Coordination Point of Contact: MAY White, RN [phone] [id number] Email: PLAN: New Services- Transition to Home Health Services. /es/ MAY Hawley, rn cardiac rehab Care Printing Plate Maker Signed: 05/01/2025 13:38 Receipt Acknowledged By: 05/01/2025 13:54 /bobby/ PHILOMENA CARLOS Advanced Medical Support IRINA GROSSMAN [facility]
--- OUTSIDE RECORDS SUMMARY | 2025-05-02 09:12 | XMS_ITS ---
Author Name [facility] [place] [facility] [place] Organization [facility] [place] Address [address] [place] [address] Care Team Providers Care Rest Room Attendant Name Role Phone LORELEI BROWN Primary Care Provider Unavail able XIOMARA MAZARIEGOS Primary Care Provider Unavailabl e Selected Encounter This section includes the information on record at [place] for the Encounter. Date/Time Encounter Type Encounter Description Reason Pro vider Source May 02, 2025 02:12 PM Outpatient Encounter ADMIN PAT ACTIVTIES (MASNONCT) IHE Encounter Template Text not used by [place] Plan of Treatment: Future Appointments (+ 6 months) and Future Tests (+/- 45 days) The Plan of Treatment section includes future care activities for the patient from all [place] treatmentfacilities. This section includes future appointments and future orders which are active, pending or scheduled. Future Appointments This section includes appointments that were scheduled to occur 6 months from the date of the Encounter, up to a maximum of 20 appointments. The data comes from all [place] treatment facilities. Appointment Date/Time Appointment Type Appointme nt Facility Name May 04, 2025 01:59 PM AMBULATORY - MEDICINE YULIET LEMUSANALY [facility] May 12, 2025 09:30 AM AMBULATORY - MEDICINE [facility] May 26, 2025 11:00 AM AMBULATORY - MEDICINE [facility] Jul 08, 2025 09:30 AM AMBULATORY - MEDICINE [facility] Active, Pending, and Scheduled Orders This section includes a listing of several types of active, pending, and scheduled orders, including clinic medications orders, diagnostic test orders, procedure orders and consult orders; where the start date of the order is 45 days before the date of the Encounter or 45 days after the date of theEncounter. The data comes from all [place] treatment facilities. Test Date/Time Test Type Test Details Facility Name Apr 30, 2025 01:54 PM Consult Order COMMUNITY CARE-OPHTH DIS MGMT [id number] Cons Director Digital Analytics's Choice [facility] BLUFF [facility] May 01, 2025 11:46 AM Consult Order COMMUNITY CARE[facility] [id number] Cons Director Digital Analytics's Choice [facility] May 03, 2025 10:47 PM Consult Order COMMUNITY CARE-ENDOCRINOLOGY [id number] Cons Director Digital Analytics's [facility] Advance Directives: All historical and current Section Date Range: From patient's date of to the date document was created. This section includes ALL of a patient's completed or amended [place] Advance and Rescinded Directives. The entries below indicate that a directive exists for the patient, but an actual copy is not included with this document. The data comes from all [place] facilities. Date Advance Directives Provider Source Jan 20, 2022 ADVANCE DIRECTIVE DISCUSSION ANNE WASHINGTON [facility] Jan 20, 2021 ADVANCE DIRECTIVE DISCUSSION ANNE WASHINGTON [facility] Dec 24, 2018 ADVANCE DIRECTIVE DISCUSSION MELBA LOPEZ JUAN ANTONIO [facility] Oct 09, 2017 ADVANCE DIRECTIVE DISCUSSION MELBA LOPEZ JUAN ANTONIO [facility] Apr 21, 2016 ADVANCE DIRECTIVE DISCUSSION MELBA LOPEZ Jan 06, 2015 ADVANCE DIRECTIVE DISCUSSION MELBA LOPEZ Jun 14, 2013 ADVANCE DIRECTIVE DISCUSSION MELBA LOPEZ May 28, 2013 ADVANCE DIRECTIVE DISCUSSION YUE PENA May 24, 2012 ADVANCE DIRECTIVE DISCUSSION KAROLINE VÁZQUEZ [facility] May 22, 2012 ADVANCE DIRECTIVE DISCUSSION CHAITANYA BENNETT [facility] Oct 28, 2011 ADVANCE DIRECTIVE DISCUSSION MELBA LOPEZ Oct 18, 2010 ADVANCE DIRECTIVE DISCUSSION AKHIL CASTRO Dec 22, 2008 ADVANCE DIRECTIVE DISCUSSION GETACHEW WORLEY Nov 12, 2008 ADVANCE DIRECTIVE DISCUSSION JOELLE BULLARD Encounter Notes: All associated encounter notes This section contains the clinical notes associated to the Encounter. Date/Time Encounter Note(s) Provider Source May 02, 2025 01:13 PM ADMINISTRATIVE NOT E: LOCAL TITLE: CCC: SCHEDULING ADMINISTRATION STANDARD TITLE: ADMINISTRATIVE NOTE DATE OF NOTE: MAY 02, 2025@13:13:03 ENTRY DATE: MAY 02, 2025@13:13:04 AUTHOR: EVELINA PEDROZA EXP COSIGNER: URGENCY: STATUS: COMPLETED Caller Verification Emergency Contact: KIM QUEZADA Emergency Contact Caller/Recipient Relation to Patient: Caregiver Caller Name: Jenelle Administrative Administrative Note Reason: Other Administrative Note Comments: [place] has been scheduled for hospital f/u 05/12/25. IMPORTANT: This note was created by [facility] Clinical Contact Center staff. Please do not alert the staff member by adding them as a signer for future communications. Alerts are not monitored by this user. /bobby/ EVELINA PEDROZA Signed: 05/02/2025 13:13 Receipt Acknowledged By: * AWAITING SIGNATURE * FABIO HALL DINAH P [facility]UFF [place] [facility]
--- NOTE | 2025-05-04 21:34 | CTR_ITS ---
PROCEDURE INFORMATION: Exam: CTA Head With Contrast, Arteriography Exam date and time: 05/04/2025 9:41 PM Age: 59 years old Clinical indication: Stroke-like symptoms; Speech disturbance; Left facial droop; Lt upper extremity weakness; Additional info: Left sided weakness TECHNIQUE: Imaging protocol: Computed tomographic angiography of the head with contrast. Exam focused on the arteries. 3D rendering (Not supervised by radiologist): MIP and/or 3D reconstructed images were created by the technologist. Radiation optimization: All CT scans at this facility use at least one of these dose optimization techniques: automated exposure control; mA and/or kV adjustment per patient size (includes targeted exams where dose is matched to clinical indication); or iterative reconstruction. Contrast material: OMNI 350; Contrast volume: 100 ml; Contrast route: INTRAVENOUS (IV); COMPARISON: CT head thrombolytic [id number] 05/04/2025 9:32 PM RADIATION DOSE METRICS: Total DLP (mGy-cm): 508.81 FINDINGS: ANTERIOR CIRCULATION: Right internal carotid artery: Intracranial segment is patent with no significant stenosis. No aneurysm. Right middle cerebral artery: No occlusion or significant stenosis. No aneurysm. Right anterior cerebral artery: No occlusion or significant stenosis. No aneurysm. Left internal carotid artery: Intracranial segment is patent with no significant stenosis. No aneurysm. Left middle cerebral artery: No occlusion or significant stenosis. No aneurysm. Left anterior cerebral artery: No occlusion or significant stenosis. No aneurysm. POSTERIOR CIRCULATION: Right vertebral artery: No occlusion or significant stenosis. No aneurysm. Left vertebral artery: No occlusion or significant stenosis. No aneurysm. Basilar artery: No occlusion or significant stenosis. No aneurysm. Right posterior cerebral artery: No occlusion or significant stenosis. No aneurysm. Left posterior cerebral artery: No occlusion or significant stenosis. No aneurysm. Brain: No definite mass, mass effect, or midline shift. Cerebral ventricles: No ventriculomegaly. Bones/joints: Unremarkable. No acute fracture. Soft tissues: Unremarkable. PROCEDURE INFORMATION: Exam: CTA Neck With Contrast Exam date and time: 05/04/2025 9:41 PM Age: 59 years old Clinical indication: Stroke-like symptoms; Speech disturbance; Left facial droop; Lt upper extremity weakness; Additional info: Left sided weakness TECHNIQUE: Imaging protocol: Computed tomographic angiography of the neck with contrast. Exam focused on the cervical segments of the vasculature. 3D rendering (Not supervised by radiologist): MIP and/or 3D reconstructed images were created by the technologist. Radiation optimization: All CT scans at this facility use at least one of these dose optimization techniques: automated exposure control; mA and/or kV adjustment per patient size (includes targeted exams where dose is matched to clinical indication); or iterative reconstruction. Contrast material: OMNI 350; Contrast volume: 100 ml; Contrast route: INTRAVENOUS (IV); COMPARISON: [place] thyroid [id number] 04/24/2025 8:23 AM RADIATION DOSE METRICS: Total DLP (mGy-cm): 508.81 FINDINGS: Right common carotid artery: No stenosis. No dissection or occlusion. Right internal carotid artery: No stenosis of the extracranial segment. No dissection or occlusion. Right external carotid artery: No occlusion or stenosis of the origin. Left common carotid artery: No stenosis. No dissection or occlusion. Left internal carotid artery: No stenosis of the extracranial segment. No dissection or occlusion. Left external carotid artery: No occlusion or stenosis of the origin. Right vertebral artery: No stenosis. No dissection or occlusion. Left vertebral artery: No stenosis. No dissection or occlusion. Thyroid: Multinodular thyroid gland with thyroid nodules measuring up to 1.4 cm. Soft tissues: Normal. No significant soft tissue swelling. Bones/joints: Degenerative changes involve the spine. No acute bony abnormality. Incompletely imaged sternotomy. Mediastinal space: There is a small amount of retrosternal fluid likely postoperative in etiology. CT/CT angio headneck* [id number] IMPRESSION: No large vessel stenosis or occlusion. IMPRESSION: 1. No large vessel stenosis or occlusion. 2. Multinodular thyroid gland. 3. Incompletely imaged retrosternal fluid likely related to recent sternotomy. Clinical correlation advised. COMMENTS: Consistent with the [place] [employer]'s Incidental Findings Committee white paper (J Am Alexandra Radiol 2015): In patients aged 35 years and older with an incidental thyroid nodule equal to or greater than 1.[address], MRI or extrathyroidal US, further evaluation with dedicated thyroid US is recommended for patients with normal life expectancy and without comorbidities. For smaller nodules without suspicious features, no further evaluation or follow up is recommended. REFERENCES: NASCET CRITERIA. The degree of stenosis in the cervical segment of the internal carotid artery is based on NASCET criteria. Normal is no stenosis. Mild is less than 50% stenosis. Moderate is 50-69% stenosis. Severe is 70% to 99% stenosis. Total occlusion is no detectable patent lumen.
--- NOTE | 2025-05-04 21:35 | CTR_ITS ---
PROCEDURE INFORMATION: Exam: CT Head Without Contrast Exam date and time: 05/04/2025 9:32 PM Age: 59 years old Clinical indication: Stroke-like symptoms; Speech disturbance; Left facial droop; Lt upper extremity weakness; Additional info: Symptoms of acute stroke TECHNIQUE: Imaging protocol: Computed tomography of the head without contrast. Radiation optimization: All CT scans at this facility use at least one of these dose optimization techniques: automated exposure control; mA and/or kV adjustment per patient size (includes targeted exams where dose is matched to clinical indication); or iterative reconstruction. Other technique: STROKE PROTOCOL was implemented. COMPARISON: CT head wo con* [id number] 01/08/2024 12:35 PM RADIATION DOSE METRICS: Total DLP (mGy-cm): 1137.74 FINDINGS: Brain: Periventricular white matter changes likely related to chronic ischemic small vessel disease. No intracranial mass, hemorrhage or recent infarct. Cerebral ventricles: No ventriculomegaly. Paranasal sinuses: Mucosal thickening involves the right maxillary sinus. Otherwise, the visualized paranasal sinuses are clear Mastoid air cells: Visualized mastoid air cells are well aerated. Bones: Unremarkable. No acute fracture. Soft tissues: Unremarkable. CT/CT head thrombolytic [id number] IMPRESSION: No acute intracranial abnormality. ASSESSMENT: ASPECTS ([place] Stroke Program Early CT Score) is 10.
--- NOTE | 2025-05-04 21:35 | ECG_ITS ---
[employer] Test Date: 2025-05-04 Pat Name: Richard Fofana Department: Room: Gender: Male Yoghurt Maker: : [id number] Requested By: Manan Heart Order Number: [id number] Manuel MD: Elvira Constantino M.D. Measurements Intervals Patriot Rate: 82 P: 0 MS: 0 QRS: -31 QRSD: 153 T: 120 QT: 432 QTc: 506 Interpretive Statements Normal sinus rhythm with first-degree AV block, frequent PACs and short runs of PAT's LEFT AXIS DEVIATION [QRS AXIS < -30] INTRAVENTRICULAR CONDUCTION DELAY [130+ ms QRS DURATION] Compared to ECG 01/08/2024 12:22:07 Left-axis deviation now present Intraventricular conduction delay now present Sinus rhythm no longer present Left ventricular hypertrophy no longer present T-wave abnormality no longer present Electronically Signed On 05-05-2025 22:00:26 CDT by Elvira Constantino M.D. [email or web address]
--- NOTE | 2025-05-04 21:39 | W.ED.NEUROSD ---
HPI - Neuro Symptoms/Deficit General: Chief Complaint: Neuro Symptoms/Deficit Stated Complaint: Stroke Alert Time Seen by Provider: 05/04/25 21:34 History of Present Illness: 59-year-old male gentleman who had single-vessel bypass with aortic valve replacement 6 days ago. He presents with sudden onset left arm weakness, left arm numbness, left facial droop, and some dysarthria. This started around 8:15 PM. Some of his symptoms have improved. Some have not. No headache. Related Data Home Medications ?Medication ?Instructions ?Recorded ?Confirmed methylphenidate HCl 10 mg tablet 10 mg PO DAILY 10/27/22 02/17/25 (Ritalin) Previous Rx's ?Medication ?Instructions ?Recorded nitroglycerin 0.4 mg sublingual 0.4 mg sublingual Q5M PRN chest 02/17/25 tablet pain #30 tabs Allergies Allergy/AdvReac Type Severity Reaction Status Date / Time Iodinated Contrast Media Allergy ALGY-Hives Verified 02/17/25 14:52 [facility] ED PFSH: Medical History Peripheral neuropathy ADHD (attention deficit hyperactivity disorder) Personal history of Hodgkin lymphoma Heart murmur Surgical History History of right inguinal hernia repair History of knee surgery Right Family History Grandfather CAD (coronary artery disease) Mother Cancer lung cancer - smoker Psychiatric illness depression Grandmother Dementia Stroke Denies family history of Diabetes Clotting disorder Hyperlipidemia Chronic kidney disease (CKD) Suicide Anesthesia complication Bleeding disorder Lung disease Hypertension Social History Smoking and tobacco/nicotine status: former use of tobacco/nicotine Alcohol intake: current Alcohol intake frequency: holidays/special occasions only NIH stroke score NIHSS: Level Of Consciousness - 1a: 0 Level Of Consciousness Questions - 1b: Both Correct Level Of Consciousness Commands - 1c: Both Correct Best Gaze - 2: Normal Visual Miner - 3: No Visual Loss Facial Palsy - 4: Partial Paralysis Motor Arm Right - 5: No Drift Motor Arm Left - 5: Drift Motor Leg Right - 6: No Drift Motor Leg Left - 6: No Drift Limb Ataxia - 7: Absent Sensory - 8: Normal Best Language - 9: No Aphasia Dysarthia - 10: Mild/Moderate Dysarthia Extinction And Inattention - 11: 0 Score: Total Score: 4 Physical Exam Const: GENERAL APPEARANCE: cooperative and ill appearing; not frail appearing ORIENTATION/CONSCIOUSNESS: Yes awake, Yes oriented to person, Yes oriented to place and Yes oriented to time; not confused HENMT: COMMON NORMALS: normocephalic and Normal external nose present HEAD & SCALP: normocephalic FACE & SINUS: face not symmetric NOSE: Normal external nose present Eye: COMMON NORMALS: Equal, round and reactive pupils present, EOMs intact bilaterally and conjunctivae normal CONJUNCTIVA: Yes conjunctivae normal PUPIL: Yes Equal, round and reactive pupils present Neck/C-Spine: GENERAL: Yes trachea midline Chest: CHEST: Yes Symmetrical chest wall rise Resp: COMMON NORMALS: normal respiratory effort and clear to auscultation bilaterally AUSCULTATION: clear to auscultation bilaterally Cardio: COMMON NORMALS: regular rate and regular rhythm RATE: regular rate RHYTHM: regular rhythm Neuro: SENSORIUM/ORIENTATION: Yes oriented to person, Yes oriented to place and Yes oriented to time Course Vital Signs: Vital signs: Vital Signs Temperature 98.2 F 05/04/25 21:52 Pulse Rate 77 05/04/25 23:45 Respiratory Rate 16 05/04/25 23:45 Blood Pressure 125/81 05/04/25 23:45 Pulse Oximetry 98 05/04/25 23:45 Oxygen Delivery Me thod Room Air 05/04/25 21:52 MDM - Neuro Symptoms/Deficit Medical Decision Making EKG reveals what appears to be atrial fibrillation, but the patient has a sinus rhythm on the monitor. Vitals have been normal. He has dysarthria, left upper extremity weakness, and a facial droop. His NIH is 4. I spoke with the stroke team at [facility]. We discussed contraindications for thrombolytic therapy, including his chest surgery 6 days ago with single-vessel graft, and aortic valve repair. These were classified as noncompressible sites, and with the stroke scale of 4, risks of thrombolytic therapy are significant. We elected not to give thrombolytic therapy. With an NIH of 4 also, he is not necessarily candidate for thrombectomy. CTA revealed no large vessel stenosis or occlusion, no dissection. Spoke with the hospitalist. The patient will be admitted. He is already on high-dose statin therapy. Consider Plavix. Echocardiogram and MRI. Lab Data 05/04/25 21:53 05/04/25 21:53 Radiology Impressions Head/Neck CTA 05/04/25 21:34 IMPRESSION: No large vessel stenosis or occlusion. IMPRESSION: 1. No large vessel stenosis or occlusion. 2. Multinodular thyroid gland. 3. Incompletely imaged retrosternal fluid likely related to recent sternotomy. Clinical correlation advised. COMMENTS: Consistent with the [employer]'s Incidental Findings Committee white paper (J Am Alexandra Radiol 2015): In patients aged 35 years and older with an incidental thyroid nodule equal to or greater than 1.[address], MRI or extrathyroidal US, further evaluation with dedicated thyroid US is recommended for patients with normal life expectancy and without comorbidities. For smaller nodules without suspicious features, no further evaluation or follow up is recommended. REFERENCES: NASCET CRITERIA. The degree of stenosis in the cervical segment of the internal carotid artery is based on NASCET criteria. Normal is no stenosis. Mild is less than 50% stenosis. Moderate is 50-69% stenosis. Severe is 70% to 99% stenosis. Total occlusion is no detectable patent lumen. ADDENDUM: 05/04/25 2233 COMMENT: THIS REPORT CONTAINS FINDINGS THAT MAY BE CRITICAL TO PATIENT CARE. The exam findings were verbally communicated by me to MANAN VERA via telephone conference at 10:31 PM CDT on 05/04/2025. The findings were acknowledged and understood. Head CT 05/04/25 21:35 IMPRESSION: No acute intracranial abnormality. ASSESSMENT: ASPECTS ([place] Stroke Program Early CT Score) is 10. ADDENDUM: 05/04/25 2158 COMMENT: THIS REPORT CONTAINS FINDINGS THAT MAY BE CRITICAL TO PATIENT CARE. The exam findings were verbally communicated by me to MANAN VERA via telephone conference at 9:58 PM CDT on 05/04/2025. The findings were acknowledged and understood. Chest X-Ray 05/04/25 21:45 IMPRESSION: Small bilateral pleural effusions associated with underlying patchy airspace disease which may reflect subsegmental atelectasis, edema or pneumonitis. Laboratory Results WBC 16.01 10^3/uL (3.29-11.43) H 05/04/25 21:53 RBC 3.10 10^6/uL (3.85-5.65) L 05/04/25 21:53 Hgb 8.80 g/dL (11.27-16.99) L 05/04/25 21:53 Hct 27.5 % (37-53) L 05/04/25 21:53 MCV 88.7 fl (82-101) 05/04/25 21:53 MCH 28.4 pg (27-33) 05/04/25 21:53 MCHC 32.0 g/dL (30-55) 05/04/25 21:53 RDW 13.7 % (12.1-15.1) 05/04/25 21:53 Plt Count 334 10^3/cmm (157-399) 05/04/25 21:53 MPV 9.3 fL (7.4-10.4) 05/04/25 21:53 Neut % (Auto) 64.1 % 05/04/25 21:53 Lymph % (Auto) 14.4 % 05/04/25 21:53 Johnson % (Auto) 17.2 % 05/04/25 21:53 Eos % (Auto) 2.4 % 05/04/25 21:53 Baso % (Auto) 0.4 % 05/04/25 21:53 Neut # (Auto) 10.26 10^3/uL (1.8-7.7) H 05/04/25 21:53 Lymph # (Auto) 2.3 10^3/uL (0.8-4.8) 05/04/25 21:53 Johnson # (Auto) 2.8 10^3/uL (0.2-0.9) H 05/04/25 21:53 Eos # (Auto) 0.4 10^3/uL (0.0-0.8) 05/04/25 21:53 Baso # (Auto) 0.1 10^3/uL (0.0-0.1) 05/04/25 21:53 Nucleated RBC % (auto) 0 % 05/04/25 21: Nucleated RBCs # 0.0 /100WBC 05/04/25 21:53 PT 15.20 SECONDS (12.1-14.9) H 05/04/25 21:53 INR 1.13 (0.8-1.2) 05/04/25 21:53 APTT 27.4 SECONDS (23.9-36.7) 05/04/25 21:53 Sodium 137 mmol/L (136-145) 05/04/25 21:53 Potassium 4.2 mmol/L (3.5-5.1) 05/04/25 21:53 Chloride 101 mmol/L (98-107) 05/04/25 21:53 Carbon Dioxide 26 mmol/L (22-29) 05/04/25 21:53 Anion Gap 14.2 (5-19) 05/04/25 21:53 BUN 22 mg/dL (6-20) H 05/04/25 21:53 Creatinine 1.2 mg/dL (0.7-1.2) 05/04/25 21:53 GFR Calculation 62.4 mL/min (90-130) L 05/04/25 21:53 Glucose 107 mg/dL (65-115) 05/04/25 21:53 Calculated Osmolality 288 mOsm/kg (285-295) 05/04/25 21:53 Calcium 8.4 mg/dL (8.5-10.5) L 05/04/25 21:53 Total Bilirubin 0.3 mg/dL (0.15-1.2) 05/04/25 21:53 AST 18 U/L (0-40) 05/04/25 21:53 ALT 17 U/L (0-41) 05/04/25 21:53 Alkaline Phosphatase 66 U/L (40-130) 05/04/25 21:53 Total Protein 6.4 g/dL (6.6-8.7) L 05/04/25 21:53 Albumin 3.0 g/dL (3.5-5.2) L 05/04/25 21:53 Globulin 3.4 g/dL (1.3-4.6) 05/04/25 21:53 Urine Color Yellow (Yellow) 05/04/25 23:30 Urine Appearance Clear (CLEAR) 05/04/25 23:30 Urine pH 5.5 (5-7) 05/04/25 23:30 Ur Specific Lindstrom 1.042 (1.005-1.030) H 05/04/25 23:30 Urine Protein Negative (Negative) 05/04/25 23:30 Urine Glucose (UA) Negative (Normal) 05/04/25 23:30 Urine Ketones Negative (Negative) 05/04/25 23: Urine Blood 1+ (Negative) A 05/04/25 23:30 Urine Nitrate Negative (Negative) 05/04/25 23:30 Urine Bilirubin Negative (Negative) 05/04/25 23:30 Urine Urobilinogen 1.0 mg/dL (Negative) 05/04/25 23:30 Ur Leukocyte Esterase Negative (Negative) 05/04/25 23:30 Urine RBC 0-2 /hpf (0-2) 05/04/25 23:30 Urine WBC 0-5 /hpf (0-5) 05/04/25 23:30 Ur Squamous Epith Cells 0-5 /hpf (0-5) 05/04/25 23:30 Amorphous Sediment Not Reportable 05/04/25 23:30 Urine Bacteria None seen /hpf (NONE) 05/04/25 23:30 Hyaline Casts 0.40 /lpf 05/04/25 23:30 Urine Opiates Screen Negative ng/mL (Negative) 05/04/25 23:30 Ur Barbiturates Screen Negative ng/mL (Negative) 05/04/25 23:30 Ur Phencyclidine Scrn Negative ng/mL (Negative) 05/04/25 23:30 Ur Amphetamines Screen Negative ng/mL (Negative) 05/04/25 23:30 U Benzodiazepines Scrn Negative ng/mL (Negative) 05/04/25 23:30 Urine Cocaine Screen Negative ng/mL (Negative) 05/04/25 23:30 U Marijuana (THC) Screen Negative ng/mL (Negative) 05/04/25 23:30 All radiology interpretation(s) finalized by discharge Discharge Plan Discharge Patient Disposition: Admitted As Inpatient Clinical Impression: Cerebrovascular accident Condition: Fair Coding Level of Care Code ED [employer] for Doni العراقي
[2025-05-04] MEDS: diphenhydrAMINE 50 mg/mL SDV 1mL IVP (21:45)
--- NOTE | 2025-05-04 21:45 | XRR_ITS ---
PROCEDURE INFORMATION: Exam: XR Chest Exam date and time: 05/04/2025 10:01 PM Age: 59 years old Clinical indication: Other: CVA; Prior surgery; Surgery date: 3-7 days post-operative; Surgery type: Cabg 04/28/2025; EMS arrival for possible stroke. ; Additional info: Weakness TECHNIQUE: Imaging protocol: Radiologic exam of the chest. Views: 1 view. COMPARISON: CT abdomen pelvis con [id number] 08/22/2022 6:48 AM FINDINGS: Lungs: Patchy airspace disease present in the lung bases. Pleural spaces: Small bilateral pleural effusions. No pneumothorax. Heart/Mediastinum: The heart is enlarged. Postsurgical changes from cardiac valve replacement. Bones/joints: Sternotomy wires present. Mild degenerative changes involve the spine. XR/XR chest 1V portable [id number] IMPRESSION: Small bilateral pleural effusions associated with underlying patchy airspace disease which may reflect subsegmental atelectasis, edema or pneumonitis.
[2025-05-04] MEDS: iohexol 350 mg/mL 500 mL Btl (per mL) IV (21:47)
[2025-05-04 21:52] VITALS: BP 144/77; PULSE 82; RESP 16; TEMP 36.8; O2SAT 96; BMI 32.8
[2025-05-04 22:02] LABS: Basophils # 0.1 10^3/uL (0.0-0.1); Basophils % 0.4 %; Eosinophils # 0.4 10^3/uL (0.0-0.8); Eosinophils % 2.4 %; Hematocrit 27.5 % (37-53); Lymphocytes # 2.3 10^3/uL (0.8-4.8); Lymphocytes % 14.4 %; Mean Corpuscular Hemoglobin 28.4 pg (27-33); Mean Corpuscular Volume 88.7 fl (82-101); Mean Platelet Volume 9.3 fL (7.4-10.4); Monocytes # 2.8 10^3/uL (0.2-0.9); Monocytes % 17.2 %; Neutrophils # 10.26 10^3/uL (1.8-7.7); Neutrophils % 64.1 %; Nucleated Red Blood Cells % 0 %; Platelet Count 334 10^3/cmm (157-399); Red Cell Distribution Width 13.7 % (12.1-15.1); White Blood Count 16.01 10^3/uL (3.29-11.43)
--- OUTSIDE RECORDS SUMMARY | 2025-05-04 22:04 | XMS_ITS | Continuity of Care Document ---
Author Name [facility] Organization [facility] Care Team Providers Care Clinical Lab Technologist Name Role Phone [facility] Unavailable Unavailable Problems Combined list of problems from Department of Defense and [facility] Affairs facilities. It does not include entries that were removed or entered in error. Problem Status Onset Date Problem Type Date of Resolution Comments Source Hodgkin's Disease Inactive 996 Condition 03/30/2017 [place] Adult attention deficit hyperactivity disorder Active Condition [facility] Aortic valve stenosis Active Condition [facility] Atrioventricular block Active Condition [facility] Attention deficit hyperactivity disorder Active Condition [facility] Attention deficit hyperactivity disorder, predominantly inattentive type Active Condition [facility] Bilateral posterior vitreous detachment Active Condition [facility]ilateral pseudophakia Active Condition [facility] Dermatitis * (ICD-9-CM 692.9) Active Condition [facility] Exposure to potentially hazardous substance ([facility] [id number]) Active Condition Jul 17 Entered By: JD COCHRAN Comment: Entered automatically through [facility]ADAY Problem List documentation program [facility] Gastroesophageal reflux disease Active Condition [place] G[facility] - Gastro-Esophageal Reflux Disease (SCT 652576574) Active Condition [facility] Hearing loss Active Condition [facility] [place] [facility] Heart Hypertrophy (ICD-9-CM 429.3) Active Condition [facility] Heart murmur Active Condition [facility] [place] [facility] History of Hodgkin lymphoma Active Condition [facility] HODG NODUL SCLERO MULT Active Condition [facility] Hodgkin's disease in remission Active Condition [place] Hyperlipidemia Active Condition [place] Hyperlipidemia (SCT 25387312) Active Condition [facility] Lateral epicondylitis Active Condition March 30, 2017 Entered By: JERMAINE ECHEVERRIA Comment: PT IS A ACCESS LIAISON SIRENAEMILY Male erectile disorder (ICD-9-CM 302.72/607.84) Active Condition [place] Non-Hodgkin's lymphoma (clinical) Active Condition [facility] Obstructive sleep apnea Active Condition [facility] Obstructive sleep apnea syndrome Active [facility] Pigment dispersion syndrome Active Condition [facility] Skin lesion [facility] Thyroid nodule Active [facility] [place] [facility] Tinnitus Active Condition [facility] Vitreous degeneration Active Condition [facility] Attention-Deficit/H yperactivity Disorder NOS (ICD-9-CM 314.9) Inactive Condition 03/30/2017 [facility] Dyslipidemia (ICD-9-CM 272.4) Inactive Condition 03/30/2017 [place] Gastroesophageal Reflux Disorder * (ICD-9-CM 530.81) Inactive Condition 03/30/2017 [place] Obstructive Sleep Apnea (Adult) (Pediatric) (ICD-9-CM 327.23) Inactive Condition 03/30/2017 [facility] Diagnosis: ICD-10-CM F90.9 Attention-deficit hyperactivity disorder, unspecified type Active Diagnosis [facility] Diagnosis: ICD-10-CM E04.1 Nontoxic single thyroid nodule Active Diagnosis [facility] Diagnosis: ICD-10-CM Z85.72 Personal history of non-Hodgkin lymphomas Active [facility] Diagnosis: ICD-10-CM R05.9 Cough, unspecified Active Diagnosis [facility] Diagnosis: ICD-10-CM R01.1 Cardiac murmur, unspecified Active Diagnosis [facility] Diagnosis: ICD-10-CM R09.81 Nasal congestion Active Diagnosis [facility] Diagnosis: ICD-10-CM F90.0 Attn-defct hyperactivity disorder, predom inattentive type Active Diagnosis [facility] Diagnosis: ICD-10-CM G47.33 Obstructive sleep apnea (adult) (pediatric) Active Diagnosis [place] [facility] Diagnosis: ICD-10-CM Z00.00 Encntr for general adult medical exam w/o abnormal findings Active Diagnosis [facility] Diagnosis: ICD-10-CM Z98.41 Cataract extraction status, right eye Active Diagnosis [facility] Medications Combined list of outpatient medications from Department of Defense and Veterans Affairs facilities.Medications provided include 1) outpatient medications from the last 15 months, and 2) patient-reported medications. Medication Details Route Status Patient Instructions Prescription Expires Prescription Number Last Dispense Date Ordering Provider Order Date Order Qty Source CYANOCOBALA MIN TAB TAKE BY MOUTH EVERY DAY NEEDED ORAL ACTIVE SOH,A [place] 2018 [facility] DIPHENHYDRA MINE HCL 25MG CAP TAKE 1 CAPSULE BY MOUTH PRN ORAL ACTIVE NICOLE VIZCAINO 2021 [facility] Methylpheni date HCl (Ritalin Eq.) Tablet 20mg Oral TAKE ONE TABLET BY MOUTH EVERY MORNING AND TAKE ONE TABLET AT NOON FOR ADHD TAKE 30 TO 45 MINUTES BEFORE FOOD. 05/30/2024 [id number] 4 YOANA DENG [address] [facility] Methylpheni date HCl (Ritalin Eq.) Tablet 20mg Oral TAKE ONE TABLET BY MOUTH EVERY MORNING AND TAKE ONE TABLET AT NOON FOR ADHD TAKE 30 TO 45 MINUTES BEFORE FOOD. Discont inued 03/27/2024 [id number] 4 YOANA DENG [address] [facility] Methylpheni date HCl (Ritalin Eq.) Tablet 20mg Oral TAKE ONE TABLET BY MOUTH EVERY MORNING AND TAKE ONE TABLET AT NOON FOR ADHD TAKE 30 TO 45 MINUTES BEFORE FOOD. 03/27/2024 [id number] 4 YOANA DENG [address] [facility] METHYLPHENI DATE HCL 10MG TAB TAKE THREE TABLETS BY MOUTH TWICE A DAY FOR ADHD TAKE 30 TO 45 MINUTES BEFORE FOOD. ORAL DISCONT INUED (EDIT) 02/13/2025 [id number] 5 DAVID DENG R 2024 180 [facility] METHYLPHENI DATE HCL 10MG TAB TAKE THREE TABLETS BY MOUTH EVERY MORNING AND TAKE TWO TABLETS AT NOON FOR ADHD TAKE 30 TO 45 MINUTES BEFORE FOOD. ORAL DISCONT INUED BY PROVIDE R 10/24/2024 [id number] 4 DAVID DENG R 2023 150 [facility] METHYLPHENI DATE HCL 10MG TAB TAKE THREE TABLETS BY MOUTH EVERY MORNING AND TAKE TWO TABLETS AT NOON FOR ADHD TAKE 30 TO 45 MINUTES BEFORE FOOD. ORAL DISCONT INUED BY PROVIDE R 11/28/2024 [id number] 4 DAVID DENG R 2023 150 [place] [facility] METHYLPHENI DATE HCL 10MG TAB TAKE THREE TABLETS BY MOUTH TWICE A DAY FOR ADHD TAKE 30 TO 45 MINUTES BEFORE FOOD. ORAL 04/20/2025 [id number] 5 DAVID DENG R 2024 180 [place] [facility] METHYLPHENI DATE HCL 10MG TAB TAKE THREE TABLETS BY MOUTH TWICE A DAY FOR ADHD TAKE 30 TO 45 MINUTES BEFORE FOOD. ORAL 03/13/2025 [id number] 5 DAVID DENG R 2024 180 [place] [facility] METHYLPHENI DATE HCL 10MG TAB TAKE THREE TABLETS BY MOUTH TWICE A DAY FOR ADHD TAKE 30 TO 45 MINUTES BEFORE FOOD. ORAL 12/29/2024 [id number] 5 DAVID DENG R 2024 180 [facility] METHYLPHENI DATE HCL 10MG TAB TAKE THREE TABLETS BY MOUTH EVERY MORNING AND TAKE TWO TABLETS AT NOON FOR ADHD TAKE 30 TO 45 MINUTES BEFORE FOOD. ORAL 09/21/2024 [id number] 4 DAVID DENG R 2023 150 [facility] METHYLPHENI DATE HCL 20MG TAB TAKE ONE TABLET BY MOUTH EVERY MORNING AND TAKE ONE TABLET AT NOON FOR ADHD TAKE 30 TO 45 MINUTES BEFORE FOOD. ORAL DISCONT INUED BY PROVIDE R 03/27/2024 [id number] 4 DAVID DENG R 2023 60 [place] [facility] METHYLPHENI DATE HCL 20MG TAB TAKE ONE TABLET BY MOUTH EVERY MORNING AND TAKE ONE TABLET AT NOON FOR ADHD TAKE 30 TO 45 MINUTES BEFORE FOOD. ORAL 08/03/2024 [id number] 4 DAVID DENG R 2023 60 [place] [facility] METHYLPHENI DATE HCL 20MG TAB TAKE ONE TABLET BY MOUTH EVERY MORNING AND TAKE ONE TABLET AT NOON FOR ADHD TAKE 30 TO 45 MINUTES BEFORE FOOD. ORAL 07/03/2024 [id number] 4 DAVID DENG R 2023 60 [facility] METHYLPHENI DATE HCL 20MG TAB TAKE ONE TABLET BY MOUTH EVERY MORNING AND TAKE ONE TABLET AT NOON FOR ADHD TAKE 30 TO 45 MINUTES BEFORE FOOD. ORAL 05/30/2024 [id number] 4 DAVID DENG N R 2023 60 [facility] MULTIVITAMI N W/MINERALS TAB TAKE BY MOUTH EVERY DAY NEEDED ORAL ACTIVE SOH,Emily [place] 2017 [facility] Allergies, Adverse Reactions, Alerts Combined list of allergies from Department of [facility] and Veterans Affairs facilities. It does not include entries that were removed or entered in error. Substance Category Reaction Severity Reaction type Status Date Reported Comments Source IODINATED CONTRAST MEDIA Propensity to adverse reactions to drug (finding) active 8 [facility] IODINATED CONTRAST MEDIA Propensity to adverse reactions to drug (finding) Urticaria active 2 [facility] [place] (PRUNUS PERSICA) Food allergy (disorder) Finding of vomiting active 2 [facility] [place]ACH[facility] Propensity to adverse reactions to substance (finding) Nausea and vomiting active 7 [facility] [place] Propensity to adverse reactions to substance (finding) Finding of vomiting active 2 [facility] Immunizations Combined list of available immunizations from the [facility] and Veterans Affairs facilities. Immunization Series Date Given Administered By Site Reaction Lot Number CVX Code Drug Human Services Program Specialist Status Comments Source INFLUENZA, UNSPECIFIED FORMULATION 2007 88 complet ed 0.5CC FLU VACCINE GIVEN [place] Results Combined list of recent chemistry, hematology and other laboratory results from [facility] of Defense and Veterans Affairs, ranging from 15 months to all on record, depending upon the facility. Order Name Results Value Reference Range Date Interpretation Specimen Comments Source CBC LEUKOCYTES [#/VOLUME] IN BLOOD BY AUTOMATED COUNT 7.9 10*3/uL 3.6 - 11.2 12/23 Specimen Type: BLOOD No comment entered. Ordering Provider: Rashad BROWN Report Released Date/Time : Dec 23, 2024 10:14 AM Reporting Lab: [place] [facility] [address] [address] Deborahin felisha Lab: [place] [facility] [address] [place] [address] [facility] CBC ERYTHROCYTE S [#/VOLUME] IN BLOOD BY AUTOMATED COUNT 4.97 10*6/uL 4.10 - 5.70 12/23 Specimen Type: BLOOD No comment entered. Ordering Provider: Rashad BROWN R Report Released Date/Time : Dec 23, 2024 10:14 AM Reporting Lab: [place] [facility] [address] [place] [address] Performin g Lab: [place] [facility] [address] [place] [address] [facility] CBC HEMOGLOBIN [MASS/VOLUM E] IN BLOOD 13.9 g/dL 13.1 - 16.8 12/23 Specimen Type: BLOOD No comment entered. Ordering Provider: Rashad BROWN R Report Released Date/Time : Dec 23, 2024 10:14 AM Reporting Lab: [place] [facility] [address] [place] [address] Performin g Lab: [place] [facility] [address] [place] [address] [facility] CBC HEMATOCRIT [VOLUME FRACTION] OF BLOOD 44.0 38.2 - 48.4 12/23 Specimen Type: BLOOD No comment entered. Ordering Provider: Rashad BROWN R Report Released Date/Time : Dec 23, 2024 10:14 AM Reporting Lab: [place] [facility] [address] [place] [address] 8 Performin g Lab: [place] [facility] [address] [place] [address] [facility] CBC MCV [ENTITIC VOLUME] BY AUTOMATED COUNT 88.5 fL 80.0 - 100.0 12/23 Specimen Type: BLOOD No comment entered. Ordering Provider: Rashad BROWN R Report Released Date/Time : Dec 23, 2024 10:14 AM Reporting Lab: [place] [facility] [address] [place] [address] Performin g Lab: [place] [facility] [address] [place] [address] 8 [facility] CBC MCH [ENTITIC MASS] BY AUTOMATED COUNT 28.0 pg 27.0 - 34.0 12/23 Specimen Type: BLOOD No comment entered. Ordering Provider: Rashad BROWN R Report Released Date/Time : Dec 23, 2024 10:14 AM Reporting Lab: [place] [facility] [address] [place] [address] Performin g Lab: [place] [facility] [address] [place] [address] [facility] CBC MCHC [MASS/VOLUM E] BY AUTOMATED COUNT 31.6 g/dL 33.0 - 36.0 12/23 L Specimen Type: BLOOD No comment entered. Ordering Provider: Rashad BROWN R Report Released Date/Time : Dec 23, 2024 10:14 AM Reporting Lab: [place] [facility] [address] [place] [address] 8 Performin g Lab: [place] [facility] [address] [place] [address] [facility] CBC PLATELETS [#/VOLUME] IN BLOOD BY AUTOMATED COUNT 262 10*3/uL 150 - 400 12/23 Specimen Type: BLOOD No comment entered. Ordering Provider: Rashad BROWN R Report Released Date/Time : Dec 23, 2024 10:14 AM Reporting Lab: [place] [facility] [address] [place] [address] 8 Performin g Lab: [place] [facility] [address] [place] [address] [facility] CBC PLATELET MEAN VOLUME [ENTITIC VOLUME] IN BLOOD BY AUTOMATED COUNT 12.3 fL 7.5 - 11.2 12/23 H Specimen Type: BLOOD No comment entered. Ordering Provider: Rashad BROWN R Report Released Date/Time : Dec 23, 2024 10:14 AM Reporting Lab: [place] [facility] [address] [place] [address] Performin g Lab: [place] [facility] [address] [place] [address] [facility] CBC ERYTHROCYTE DISTRIBUTIO N WIDTH [RATIO] BY AUTOMATED COUNT 14.7 11.8 - 15.1 12/23 Specimen Type: BLOOD No comment entered. Ordering Provider: Rashad BROWN Report Released Date/Time : Dec 23, 2024 10:14 AM Reporting Lab: [place] [facility] [address] [place] [address] 8 Performin g Lab: [place] [facility] [address] [place] [address] [facility] CBC LYMPHOCYTES /100 LEUKOCYTES IN BLOOD BY AUTOMATED COUNT 29.3 12/23 Specimen Type: BLOOD No comment entered. Ordering Provider: Rashad BROWN Report Released Date/Time : Dec 23, 2024 10:14 AM Reporting Lab: [place] [facility] [address] [place] [address] Performin g Lab: [place] [facility] [address] [place] [address] 8 [facility] CBC MONOCYTES/1 00 LEUKOCYTES IN BLOOD BY AUTOMATED COUNT 15.0 12/23 Specimen Type: BLOOD No comment entered. Ordering Provider: Rashad BROWN Report Released Date/Time : Dec 23, 2024 10:14 AM Reporting Lab: [place] [facility] [address] [place] [address] Performin g Lab: [place] [facility] [address] [place] [address] [facility] CBC NEUTROPHILS /100 LEUKOCYTES IN BLOOD BY AUTOMATED COUNT 51.4 12/23 Specimen Type: BLOOD No comment entered. Ordering Provider: Rashad BROWN R Report Released Date/Time : Dec 23, 2024 10:14 AM Reporting Lab: [place] [facility] [address] [place] [address] Performin g Lab: [place] [facility] [address] [place] [address] [facility] CBC EOSINOPHILS /100 LEUKOCYTES IN BLOOD BY AUTOMATED COUNT 2.9 12/23 Specimen Type: BLOOD No comment entered. Ordering Provider: Rashad BROWN R Report Released Date/Time : Dec 23, 2024 10:14 AM Reporting Lab: [place] [facility] [address] [place] [address] Performin g Lab: [place] [facility] [address] [place] [address] 8 [facility] CBC BASOPHILS/1 00 LEUKOCYTES IN BLOOD BY AUTOMATED COUNT 1.1 12/23 Specimen Type: BLOOD No comment entered. Ordering Provider: Rashad BROWN Report Released Date/Time : Dec 23, 2024 10:14 AM Reporting Lab: [place] [facility] [address] [place] [address] Performin g Lab: [place] [facility] [address] [place] [address] 8 [facility] CBC LYMPHOCYTES [#/VOLUME] IN BLOOD BY AUTOMATED COUNT 2.30 10*3/uL 0.77 - 4.50 12/23 Specimen Type: BLOOD No comment entered. Ordering Provider: Rashad BROWN Report Released Date/Time : Dec 23, 2024 10:14 AM Reporting Lab: [place] [facility] [address] [place] [address] 8 Performin g Lab: [place] [facility] [address] [place] [address] 8 [facility] CBC MONOCYTES [#/VOLUME] IN BLOOD BY AUTOMATED COUNT 1.18 10*3/uL 0.19 - 0.8 12/23 H Specimen Type: BLOOD No comment entered. Ordering Provider: Rashad BROWN R Report Released Date/Time : Dec 23, 2024 10:14 AM Reporting Lab: [place] [facility] [address] [place] [address] 8 Performin g Lab: [place] [facility] [address] [place] [address] [facility] CBC NEUTROPHILS [#/VOLUME] IN BLOOD BY AUTOMATED COUNT 4.04 10*3/uL 2.10 - 8.00 12/23 Specimen Type: BLOOD No comment entered. Ordering Provider: Rashad BROWN Report Released Date/Time : Dec 23, 2024 10:14 AM Reporting Lab: [place] [facility] [address] [place] [address] Performin g Lab: [place] [facility] [address] [place] [address] 8 [facility] CBC EOSINOPHILS [#/VOLUME] IN BLOOD BY AUTOMATED COUNT 0.23 10*3/uL 0.00 - 0.60 12/23 Specimen Type: BLOOD No comment entered. Ordering Provider: Rashad BROWN R Report Released Date/Time : Dec 23, 2024 10:14 AM Reporting Lab: [place] [facility] [address] [place] [address] Performin g Lab: [place] [facility] [address] [place] [address] [facility] CBC BASOPHILS [#/VOLUME] IN BLOOD BY AUTOMATED COUNT 0.09 10*3/uL 0.00 - 0.20 12/23 Specimen Type: BLOOD No comment entered. Ordering Provider: Rashad BROWN Report Released Date/Time : Dec 23, 2024 10:14 AM Reporting Lab: [place] [facility] [address] [place] [address] Performin g Lab: [place] [facility] [address] [place] [address] [facility] CBC IMMATURE GRANULOCYTE S/100 LEUKOCYTES IN BLOOD BY AUTOMATED COUNT 0.3 12/23 Specimen Type: BLOOD No comment entered. Ordering Provider: Rashad BROWN R Report Released Date/Time : Dec 23, 2024 10:14 AM Reporting Lab: [place] [facility] [address] [place] [address] Performin g Lab: [place] [facility] [address] [place] [address] [facility] CBC IMMATURE GRANULOCYTE S [#/VOLUME] IN BLOOD BY AUTOMATED COUNT 0.02 10*3/uL 0.00 - 0.05 12/23 Specimen Type: BLOOD No comment entered. Ordering Provider: Rashad BROWN R Report Released Date/Time : Dec 23, 2024 10:14 AM Reporting Lab: [place] [facility] [address] [place] [address] Performin g Lab: [place] [facility] [address] [place] [address] [facility] CHOLESTERO L PANEL (PB) CHOLESTEROL [MASS/VOLUM E] IN SERUM OR PLASMA 148 mg/dL 0 - 200 12/23 Specimen Type: PLASMA No comment entered. Ordering Provider: Rashad BROWN Report Released Date/Time : Dec 23, 2024 10:14 AM Reporting Lab: [place] [facility] [address] [place] [address] Performin g Lab: [place] [facility] [address] [place] [address] [facility] CHOLESTERO L PANEL (PB) TRIGLYCERID E [MASS/VOLUM E] IN SERUM OR PLASMA 61 mg/dL 0 - 150 12/23 Specimen Type: PLASMA No comment entered. Ordering Provider: Rashad BROWN Report Released Date/Time : Dec 23, 2024 10:14 AM Reporting Lab: [place] [facility] [address] [place] [address] Performin g Lab: [place] [facility] [address] [place] [address] [facility] CHOLESTERO L PANEL (PB) CHOLESTEROL IN LDL [MASS/VOLUM E] IN SERUM OR PLASMA BY CALCULATION 98.8 mg/dL 12/23 Specimen Type: PLASMA No comment entered. Ordering Provider: Rashad BROWN Report Released Date/Time : Dec 23, 2024 10:14 AM Reporting Lab: [place] [facility] [address] [place] [address] Performin g Lab: [place] [facility] [address] [place] [address] 8 [facility] CHOLESTERO L PANEL (PB) CHOLESTEROL IN HDL [MASS/VOLUM E] IN SERUM OR PLASMA 37.0 mg/dL 40 12/23 L Specimen Type: PLASMA No comment entered. Ordering Provider: Rashad BROWN Report Released Date/Time : Dec 23, 2024 10:14 AM Reporting Lab: [place] [facility] [address] [place] [address] Performin g Lab: [place] [facility] [address] [place] [address] [facility] CHOLESTERO L PANEL (PB) CHOLESTEROL IN HDL/CHOLEST CHINTAN.TOTAL [MASS RATIO] IN SERUM OR PLASMA 25.0 25 12/23 Specimen Type: PLASMA No comment entered. Ordering Provider: Rashad BROWN R Report Released Date/Time : Dec 23, 2024 10:14 AM Reporting Lab: [place] [facility] [address] [place] [address] Performin g Lab: [place] [facility] [address] [place] [address] [facility] COMPREHENS ABIGAIL METABOLIC PANEL CREATININE [MASS/VOLUM E] IN SERUM OR PLASMA 0.97 mg/dL 0.7 - 1.3 12/23 Specimen Type: PLASMA No comment entered. Ordering Provider: Rashad BROWN Report Released Date/Time : Dec 23, 2024 10:14 AM Reporting Lab: [place] [facility] [address] [place] [address] Performin g Lab: [place] [facility] [address] [place] [address] [facility] COMPREHENS ABIGAIL METABOLIC PANEL UREA NITROGEN [MASS/VOLUM E] IN SERUM OR PLASMA 19 mg/dL 9 - 25 12/23 Specimen Type: PLASMA No comment entered. Ordering Provider: Rashad BROWN Report Released Date/Time : Dec 23, 2024 10:14 AM Reporting Lab: [place] [facility] [address] [place] [address] Performin g Lab: [place] [facility] [address] [place] [address] [facility] COMPREHENS ABIGAIL METABOLIC PANEL GLUCOSE [MASS/VOLUM E] IN SERUM OR PLASMA 95 mg/dL 72 - 99 12/23 Specimen Type: PLASMA No comment entered. Ordering Provider: Rashad BROWN R Report Released Date/Time : Dec 23, 2024 10:14 AM Reporting Lab: [place] [facility] [facility] [address] [place] [address] Performin g Lab: [place] [facility] [address] [place] [address] 8 [facility] COMPREHENS ABIGAIL METABOLIC PANEL SODIUM [MOLES/VOLU ME] IN SERUM OR PLASMA 139 meq/L 136 - 145 12/23 Specimen Type: PLASMA No comment entered. Ordering Provider: Rashad BROWN R Report Released Date/Time : Dec 23, 2024 10:14 AM Reporting Lab: [place] [facility] [address] [place] [address] 8 Performin g [place]: [place] [facility] [address] [place] [address] 8 [facility] COMPREHENS ABIGAIL METABOLIC PANEL POTASSIUM [MOLES/VOLU ME] IN SERUM OR PLASMA 4.7 meq/L 3.5 - 5 12/23 Specimen Type: PLASMA No comment entered. Ordering Provider: Rashad BROWN R Report Released Date/Time : Dec 23, 2024 10:14 AM Reporting Lab: [place] [facility] [address] [place] [address] 8 Performin g [place]: [place] [facility] [address] [place] [address] 8 [facility] COMPREHENS ABIGAIL METABOLIC PANEL CHLORIDE [MOLES/VOLU ME] IN SERUM OR PLASMA 104 meq/L 98 - 107 12/23 Specimen Type: PLASMA No comment entered. Ordering Provider: Rashad BROWN R Report Released Date/Time : Dec 23, 2024 10:14 AM Reporting Lab: [place] [facility] [address] [place] [address] 8 Performin g Lab: [place] [facility] [address] [place] [address] 8 [facility] COMPREHENS ABIGAIL METABOLIC PANEL CARBON DIOXIDE, TOTAL [MOLES/VOLU ME] IN SERUM OR PLASMA 25 meq/L 22 - 31 12/23 Specimen Type: PLASMA No comment entered. Ordering Provider: Rashad BROWN R Report Released Date/Time : Dec 23, 2024 10:14 AM Reporting Lab: [place] [facility] [address] [place] [address] 8 Performin g [place]: [place] [facility] [address] [place] [address] 8 [facility] COMPREHENS ABIGAIL METABOLIC PANEL CALCIUM [MASS/VOLUM E] IN SERUM OR PLASMA 9.8 mg/dL 8.4 - 10.4 12/23 Specimen Type: PLASMA No comment entered. Ordering Provider: Rashad BROWN Report Released Date/Time : Dec 23, 2024 10:14 AM Reporting Lab: [place] [facility] [address] [place] [address] 8 Performin g Lab: [place] [facility] [address] [place] [phone] 8 [facility] COMPREHENS ABIGAIL METABOLIC PANEL PROTEIN [MASS/VOLUM E] IN SERUM OR PLASMA 8.5 g/dL 6 - 8.6 12/23 Specimen Type: PLASMA No comment entered. Ordering Provider: Rashad BROWN Report Released Date/Time : Dec 23, 2024 10:14 AM Reporting Lab: [place] [facility] [address] [place] [address] 8 Performin g Lab: [place] [facility] [address] [place] [address] 8 [facility] COMPREHENS ABIGAIL METABOLIC PANEL ALBUMIN [MASS/VOLUM E] IN SERUM OR PLASMA 4.3 g/dL 3.4 - 5 12/23 Specimen Type: PLASMA No comment entered. Ordering Provider: Rashad BROWN Report Released Date/Time : Dec 23, 2024 10:14 AM Reporting Lab: [place] [facility] [address] [place] [address] 8 Performin g Lab: [place] [facility] [address] [place] [address] 8 [facility] COMPREHENS ABIGAIL METABOLIC PANEL BILIRUBIN.T OTAL [MASS/VOLUM E] IN SERUM OR PLASMA 0.5 mg/dL 0.2 - 1.2 12/23 Specimen Type: PLASMA No comment entered. Ordering Provider: Rashad BROWN R Report Released Date/Time : Dec 23, 2024 10:14 AM Reporting Lab: [place] [facility] [address] [place] [address] 8 Performin g Lab: [place] [facility] [address] [place] [address] 8 [facility] COMPREHENS ABIGAIL METABOLIC PANEL ALKALINE PHOSPHATASE [ENZYMATIC ACTIVITY/VO LUME] IN SERUM OR PLASMA 84 U/L 40 - 150 12/23 Specimen Type: PLASMA No comment entered. Ordering Provider: Rashad BROWN Report Released Date/Time : Dec 23, 2024 10:14 AM Reporting Lab: [place] [facility] [address] [place] [address] 8 Performin g Lab: [place] [facility] [address] [place] [address] 8 [facility] COMPREHENS ABIGAIL METABOLIC PANEL ASPARTATE AMINOTRANSF ERASE [ENZYMATIC ACTIVITY/VO LUME] IN SERUM OR PLASMA 26 U/L 5 - 34 12/23 Specimen Type: PLASMA No comment entered. Ordering Provider: Rashad BROWN Report Released Date/Time : Dec 23, 2024 10:14 AM Reporting Lab: [place] [facility] [address] [place] [address] 8 Performin g Lab: [place] [facility] [address] [place] [address] 8 [facility] COMPREHENS ABIGAIL METABOLIC PANEL ALANINE AMINOTRANSF ERASE [ENZYMATIC ACTIVITY/VO LUME] IN SERUM OR PLASMA 28 U/L 8 - 40 12/23 Specimen Type: PLASMA No comment entered. Ordering Provider: Rashad BROWN R Report Released Date/Time : Dec 23, 2024 10:14 AM Reporting Lab: [place] [facility] [address] [place] [address] 8 Performin g Lab: [place] [facility] [address] [place] [address] 8 [facility] COMPREHENS ABIGAIL METABOLIC PANEL GLOMERULAR FILTRATION RATE/1.73 SQ M.PREDICTED [VOLUME RATE/AREA] IN SERUM, PLASMA OR BLOOD BY CREATININE- BASED FORMULA (CKD-EPI 2020) 91 12/23 Specimen Type: PLASMA No comment entered. Ordering Provider: Rashad BROWN Report Released Date/Time : Dec 23, 2024 10:14 AM Reporting Lab: [place] [facility] [address] [place] [address] 8 Performin g Lab: [place] [facility] [address] [place] [address] 8 [facility] HGA1C HEMOGLOBIN A1C/HEMOGLO BIN.TOTAL IN BLOOD 5.9 4.0 - 6.0 12/23 Specimen Type: BLOOD No comment entered. Ordering Provider: Rashad BROWN Report Released Date/Time : Dec 23, 2024 10:14 AM Reporting Lab: [place] [facility] [address] [place] [address] 8 Performin g Lab: [place] [facility] [address] [place] [address] [facility] TSH (MA-PB) THYROTROPIN [UNITS/VOLU ME] IN SERUM OR PLASMA 1.932 u[IU]/mL 0.47 - 5 12/23 Specimen Type: SERUM No comment entered. Ordering Provider: Rsahad BROWN Report Released Date/Time : Dec 23, 2024 10:14 AM Reporting Lab: [place] [facility] [address] [place] [address] 8 Performin g Lab: [place] [facility] [address] [place] [address] 8 [facility] DRUG SCREEN URINE-inho use (PB) OPIATES [PRESENCE] IN URINE BY SCREEN METHOD Negative 09/24 Specimen Type: URINE No comment entered. Ordering Provider: DAVID DENG Report Released Date/Time : Sep 24, 2024 09:29 AM Reporting Lab: [place] [facility] [address] [place] [address] 8 Performin g Lab: [place] [facility] [address] [place] [address] 8 [facility] DRUG SCREEN URINE-inho use (PB) COCAINE [PRESENCE] IN URINE Negative 09/24 Specimen Type: URINE No comment entered. Ordering Provider: DAVID DENG Report Released Date/Time : Sep 24, 2024 09:29 AM Reporting Lab: [place] [facility] [address] [place] [address] 8 Performin g Lab: [place] [facility] [address] [place] [address] 8 [facility] DRUG SCREEN URINE-inho use (PB) TETRAHYDROC ANNABINOL [PRESENCE] IN URINE BY SCREEN METHOD Negative 09/24 Specimen Type: URINE No comment entered. Ordering Provider: DAVID DENG Report Released Date/Time : Sep 24, 2024 09:29 AM Reporting Lab: [place] [facility] [address] [place] [address] 8 Performin g Lab: [place] [facility] [address] [place] [address] 8 [facility] DRUG SCREEN URINE-inho use (PB) PHENCYCLIDI NE [PRESENCE] IN URINE Negative 09/24 Specimen Type: URINE No comment entered. Ordering Provider: DAVID DENG Report Released Date/Time : Sep 24, 2024 09:29 AM Reporting Lab: [place] [facility] [address] [place] [address] 8 Performin g Lab: [place] [facility] [address] [place] [address] 8 [facility] DRUG SCREEN URINE-inho use (PB) BENZODIAZEP MICHEL [PRESENCE] IN URINE BY SCREEN METHOD Negative 09/24 Specimen Type: URINE No comment entered. Ordering Provider: DAVID DENG Report Released Date/Time : Sep 24, 2024 09:29 AM Reporting Lab: [place] [facility] [address] [place] [address] 8 Performin g Lab: [place] [facility] [address] [place] [address] 8 [facility] DRUG SCREEN URINE-inho use (PB) BARBITURATE S [PRESENCE] IN URINE Negative 09/24 Specimen Type: URINE No comment entered. Ordering Provider: DAVID DENG Report Released Date/Time : Sep 24, 2024 09:29 AM Reporting Lab: [place] [facility] [address] [place] [address] 8 Performin g Lab: [place] [facility] [address] [place] [address] 8 [facility] DRUG SCREEN URINE-inho use (PB) AMPHETAMINE [PRESENCE] IN URINE BY SCREEN METHOD Negative 09/24 Specimen Type: URINE No comment entered. Ordering Provider: DAVID DENG Report Released Date/Time : Sep 24, 2024 09:29 AM Reporting Lab: [place] [facility] [address] [place] [address] 8 Performin g Lab: [place] [facility] [address] [place] [address] 8 [facility] DRUG SCREEN URINE-inho use (PB) CREATININE [MASS/VOLUM E] IN URINE 31.45 mg/dL 09/24 Specimen Type: URINE No comment entered. Ordering Provider: DAVID DENG Report Released Date/Time : Sep 24, 2024 09:29 AM Reporting Lab: [place] [facility] [address] [place] [address] 8 Performin g Lab: [place] [facility] [address] [place] [address] 8 [facility] DRUG SCREEN URINE-inho use (PB) OXYCODONE CUTOFF [MASS/VOLUM E] IN URINE FOR SCREEN METHOD Negative 09/24 Specimen Type: URINE No comment entered. Ordering Provider: DAVID DENG Report Released Date/Time : Sep 24, 2024 09:29 AM Reporting Lab: [place] [facility] [address] [place] [address] 8 Performin g Lab: [place] [facility] [address] [place] [address] 8 [facility] DRUG SCREEN URINE-inho use (PB) ETHANOL [MASS/VOLUM E] IN URINE <10.0mg/d L 0 - 20 09/24 L Specimen Type: URINE No comment entered. Ordering Provider: SCHAY,DAVID N R Report Released Date/Time : Sep 24, 2024 09:29 AM Reporting Lab: [place] [facility] [address] [place] [address] 8 Performin g Lab: [place] [facility] [address] [place] [address] 8 [facility] CHOLESTERO L PANEL (PB) CHOLESTEROL [MASS/VOLUM E] IN SERUM OR PLASMA 172 mg/dL 0 - 200 07/12 Specimen Type: PLASMA No comment entered. Ordering Provider: Rashad BROWN Report Released Date/Time : Jul 11, 2024 04:11 PM Reporting Lab: [place] [facility] [address] [place] [address] 8 Performin g Lab: [place] [facility] [address] [place] [address] 8 [facility] CHOLESTERO L PANEL (PB) TRIGLYCERID E [MASS/VOLUM E] IN SERUM OR PLASMA 80 mg/dL 0 - 150 07/12 Specimen Type: PLASMA No comment entered. Ordering Provider: Rashad BROWN R Report Released Date/Time : Jul 11, 2024 04:11 PM Reporting Lab: [place] [facility] [address] [place] [address] 8 Performin g Lab: [place] [facility] [address] [place] [address] 8 [facility] CHOLESTERO L PANEL (PB) CHOLESTEROL IN LDL [MASS/VOLUM E] IN SERUM OR PLASMA BY CALCULATION 115.0 mg/dL 07/12 Specimen Type: PLASMA No comment entered. Ordering Provider: Rashad BROWN R Report Released Date/Time : Jul 11, 2024 04:11 PM Reporting Lab: [place] [facility] [address] [place] [address] 8 Performin g Lab: [place] [facility] [address] [place] [address] 8 [facility] CHOLESTERO L PANEL (PB) CHOLESTEROL IN HDL [MASS/VOLUM E] IN SERUM OR PLASMA 41.0 mg/dL 40 07/12 H Specimen Type: PLASMA No comment entered. Ordering Provider: BROWN,C ATHERINE R Report Released Date/Time : Jul 11, 2024 04:11 PM Reporting Lab: [place] [facility] [address] [place] [address] 8 Performin g Lab: [place] [facility] [address] [place] [address] 8 [facility] CHOLESTERO L PANEL (PB) CHOLESTEROL IN HDL/CHOLEST CHINTAN.TOTAL [MASS RATIO] IN SERUM OR PLASMA 23.8 25 07/12 Specimen Type: PLASMA No comment entered. Ordering Provider: Rashad BROWN Report Released Date/Time : Jul 11, 2024 04:11 PM Reporting Lab: [place] [facility] [address] [place] [address] 8 Performin g Lab: [place] [facility] [address] [place] [address] 8 [facility] COMPREHENS ABIGAIL METABOLIC PANEL CREATININE [MASS/VOLUM E] IN SERUM OR PLASMA 1.07 mg/dL 0.7 - 1.3 07/12 Specimen Type: PLASMA No comment entered. Ordering Provider: Rashad BROWN Report Released Date/Time : Jul 11, 2024 04:11 PM Reporting Lab: [place] [facility] [address] [place] [address] 8 Performin g Lab: [place] [facility] [address] [place] [address] 8 [facility] COMPREHENS ABIGAIL METABOLIC PANEL UREA NITROGEN [MASS/VOLUM E] IN SERUM OR PLASMA 16 mg/dL 9 - 25 07/12 Specimen Type: PLASMA No comment entered. Ordering Provider: Rashad BROWN R Report Released Date/Time : Jul 11, 2024 04:11 PM Reporting Lab: [place] [facility] [address] [place] [address] 8 Performin g Lab: [place] [facility] [address] [place] [address] 8 [facility] COMPREHENS ABIGAIL METABOLIC PANEL GLUCOSE [MASS/VOLUM E] IN SERUM OR PLASMA 98 mg/dL 72 - 99 07/12 Specimen Type: PLASMA No comment entered. Ordering Provider: Rashad BROWN R Report Released Date/Time : Jul 11, 2024 04:11 PM Reporting Lab: [place] [facility] [address] [place] [address] 8 Performin g Lab: [place] [facility] [address] [place] [address] 8 [facility] COMPREHENS ABIGAIL METABOLIC PANEL SODIUM [MOLES/VOLU ME] IN SERUM OR PLASMA 139 meq/L 136 - 145 07/12 Specimen Type: PLASMA No comment entered. Ordering Provider: Rashad BROWN Report Released Date/Time : Jul 11, 2024 04:11 PM Reporting Lab: [place] [facility] [address] [place] [address] 8 Performin g Lab: [place] [facility] [address] [place] [address] 8 [facility] COMPREHENS ABIGAIL METABOLIC PANEL POTASSIUM [MOLES/VOLU ME] IN SERUM OR PLASMA 4.3 meq/L 3.5 - 5 07/12 Specimen Type: PLASMA No comment entered. Ordering Provider: Rashad BROWN R Report Released Date/Time : Jul 11, 2024 04:11 PM Reporting Lab: [place] [facility] [address] [place] [address] 8 Performin g Lab: [place] [facility] [address] [place] [address] 8 [facility] COMPREHENS ABIGAIL METABOLIC PANEL CHLORIDE [MOLES/VOLU ME] IN SERUM OR PLASMA 105 meq/L 98 - 107 07/12 Specimen Type: PLASMA No comment entered. Ordering Provider: Rashad BROWN R Report Released Date/Time : Jul 11, 2024 04:11 PM Reporting Lab: [place] [facility] [address] [place] [address] 8 Performin g Lab: [place] [facility] [address] [place] [address] 8 [facility] COMPREHENS ABIGAIL METABOLIC PANEL CARBON DIOXIDE, TOTAL [MOLES/VOLU ME] IN SERUM OR PLASMA 25 meq/L 22 - 31 07/12 Specimen Type: PLASMA No comment entered. Ordering Provider: Rashad BROWN Report Released Date/Time : Jul 11, 2024 04:11 PM Reporting Lab: [place] [facility] [address] [place] [address] 8 Performin g Lab: [place] [facility] [address] [place] [address] 8 [facility] COMPREHENS ABIGAIL METABOLIC PANEL CALCIUM [MASS/VOLUM E] IN SERUM OR PLASMA 9.6 mg/dL 8.4 - 10.4 07/12 Specimen Type: PLASMA No comment entered. Ordering Provider: Rashad BROWN Report Released Date/Time : Jul 11, 2024 04:11 PM Reporting Lab: [place] [facility] [address] [place] [address] 8 Performin g Lab: [place] [facility] [address] [place] [address] 8 [facility] COMPREHENS ABIGAIL METABOLIC PANEL PROTEIN [MASS/VOLUM E] IN SERUM OR PLASMA 8.1 g/dL 6 - 8.6 07/12 Specimen Type: PLASMA No comment entered. Ordering Provider: Rashad BROWN R Report Released Date/Time : Jul 11, 2024 04:11 PM Reporting Lab: [place] [facility] [address] [place] [address] 8 Performin g Lab: [place] [facility] [address] [place] [phone] 8 [facility] COMPREHENS ABIGAIL METABOLIC PANEL ALBUMIN [MASS/VOLUM E] IN SERUM OR PLASMA 4.2 g/dL 3.4 - 5 07/12 Specimen Type: PLASMA No comment entered. Ordering Provider: Rashad BROWN Report Released Date/Time : Jul 11, 2024 04:11 PM Reporting Lab: [place] [facility] [address] [place] [address] 8 Performin g [place]: [place] [facility] [address] [place] [address] 8 [facility] COMPREHENS ABIGAIL METABOLIC PANEL BILIRUBIN.T OTAL [MASS/VOLUM E] IN SERUM OR PLASMA 1.0 mg/dL 0.2 - 1.2 07/12 Specimen Type: PLASMA No comment entered. Ordering Provider: Rashad BROWN R Report Released Date/Time : Jul 11, 2024 04:11 PM Reporting Lab: [place] [facility] [address] [place] [address] 8 Performin g Lab: [place] [facility] [address] [place] [address] 8 [facility] COMPREHENS ABIGAIL METABOLIC PANEL ALKALINE PHOSPHATASE [ENZYMATIC ACTIVITY/VO LUME] IN SERUM OR PLASMA 81 U/L 40 - 150 07/12 Specimen Type: PLASMA No comment entered. Ordering Provider: Rashad BROWN Report Released Date/Time : Jul 11, 2024 04:11 PM Reporting Lab: [place] [facility] [address] [place] [address] 8 Performin g Lab: [place] [facility] [address] [place] [address] 8 [facility] COMPREHENS ABIGAIL METABOLIC PANEL ASPARTATE AMINOTRANSF ERASE [ENZYMATIC ACTIVITY/VO LUME] IN SERUM OR PLASMA 23 U/L 5 - 34 07/12 Specimen Type: PLASMA No comment entered. Ordering Provider: Rashad BROWN R Report Released Date/Time : Jul 11, 2024 04:11 PM Reporting Lab: [place] [facility] [address] [place] [address] 8 Performin g Lab: [place] [facility] [address] [place] [address] 8 [facility] COMPREHENS ABIGAIL METABOLIC PANEL ALANINE AMINOTRANSF ERASE [ENZYMATIC ACTIVITY/VO LUME] IN SERUM OR PLASMA 21 U/L 8 - 40 07/12 Specimen Type: PLASMA No comment entered. Ordering Provider: Rashad BROWN R Report Released Date/Time : Jul 11, 2024 04:11 PM Reporting Lab: [place] [facility] [address] [place] [address] 8 Performin g Lab: [place] [facility] [address] [place] [address] 8 [facility] COMPREHENS ABIGAIL METABOLIC PANEL GLOMERULAR FILTRATION RATE/1.73 SQ M.PREDICTED [VOLUME RATE/AREA] IN SERUM, PLASMA OR BLOOD BY CREATININE- BASED FORMULA (CKD-EPI 2020) 81 07/12 Specimen Type: PLASMA No comment entered. Ordering Provider: Rashad BROWN Report Released Date/Time : Jul 11, 2024 04:11 PM Reporting Lab: [place] [facility] [address] [place] [address] 8 Performin g Lab: [place] [facility] [address] [place] [address] 8 [facility] HGA1C HEMOGLOBIN A1C/HEMOGLO BIN.TOTAL IN BLOOD 6.1 4.0 - 6.0 07/12 H Specimen Type: BLOOD No comment entered. Ordering Provider: Rashad BROWN Report Released Date/Time : Jul 11, 2024 04:11 PM Reporting Lab: [place] [facility] [address] [place] [address] Performin g Lab: [place] [facility] [address] [place] [address] [facility] PROST. SPECIFIC AG.(PB-STL ) PROSTATE SPECIFIC AG [MASS/VOLUM E] IN SERUM OR PLASMA 0.42 ng/mL 0 - 4 07/12 Specimen Type: SERUM No comment entered. Ordering Provider: Rashad BROWN Report Released Date/Time : Jul 11, 2024 04:11 PM Reporting Lab: [place] [facility] [address] [place] [address] Performin g Lab: [place] [facility] [address] [place] [address] [facility] Vital Signs Combined list of inpatient and outpatient Vital Signs from Department of Defense and Veterans Affairs, ranging from 12 months to all on record, depending upon the facility. Vital Sign Value Date Comments Source SYSTOLIC BLOOD PRESSURE 158 04/07/2025 08:44:00 [facility] DIASTOLIC BLOOD PRESSURE 83 04/07/2025 08:44:00 [facility] PULSE OXIMETRY 99 04/07/2025 08:44:00 [facility] WEIGHT 230.8 04/07/2025 08:44:00 [facility] BMI 32 kg/m2 04/07/2025 08:44:00 [facility] PAIN 0 04/07/2025 08:44:00 [facility] HEIGHT 71.0 04/07/2025 08:44:00 [facility] PULSE 74 04/07/2025 08:44:00 [facility] RESPIRATION 16 04/07/2025 08:44:00 [facility] SYSTOLIC BLOOD PRESSURE 128 01/03/2025 11:40:00 [facility] DIASTOLIC BLOOD PRESSURE 80 01/03/2025 11:40:00 [facility] TEMPERATURE 99.1 01/03/2025 11:40:00 [facility] PULSE 84 01/03/2025 11:40:00 [facility] SYSTOLIC BLOOD PRESSURE 156 12/23/2024 09:41:00 [facility] DIASTOLIC BLOOD PRESSURE 83 12/23/2024 09:41:00 [facility] PULSE OXIMETRY 98 12/23/2024 09:41:00 [facility] WEIGHT 234.6 12/23/2024 09:41:00 [facility] BMI 33 kg/m2 12/23/2024 09:41:00 [facility] PAIN 0 12/23/2024 09:41:00 [facility] HEIGHT 71.0 12/23/2024 09:41:00 [facility] PULSE 69 12/23/2024 09:41:00 [facility] RESPIRATION 18 12/23/2024 09:41:00 [facility] SYSTOLIC BLOOD PRESSURE 150 11/18/2024 13:36:00 [facility] DIASTOLIC BLOOD PRESSURE 89 11/18/2024 13:36:00 [facility] TEMPERATURE 97.8 11/18/2024 13:36:00 [facility] PULSE 86 11/18/2024 13:36:00 [facility] SYSTOLIC BLOOD PRESSURE 134 09/24/2024 09:30:00 [facility] DIASTOLIC BLOOD PRESSURE 82 09/24/2024 09:30:00 [facility] PULSE OXIMETRY 97 09/24/2024 09:30:00 [facility] WEIGHT 249.3 09/24/2024 09:30:00 [facility] BMI 35 kg/m2 09/24/2024 09:30:00 [facility] PAIN 0 09/24/2024 09:30:00 [facility] HEIGHT 71 09/24/2024 09:30:00 [facility] TEMPERATURE 98.1 09/24/2024 09:30:00 [facility] PULSE 79 09/24/2024 09:30:00 [facility] RESPIRATION 20 09/24/2024 09:30:00 [facility] Encounters Combined list of: 1) Encounters from Department of [facility] Affairs facilities going backup to the last 18 months, not all [place] inpatient encounters are included; 2) Encounters from the Department of [facility] facilities going backup to 280 months. Location Location Details Encounter Type Encounter Number Reason For Visit Attending Provider ADM Date DC Date Status Disposition Source [facility] OFFICE O/P EST LOW 20 MIN [id number] Diagnos is: ICD-10- CM 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, unspeci fied type YOANA DENG 11/24 [facility] Outpatient Encounter [id number] 11/27 [facility]P EST LOW 20 MIN [id number] Diagnos is: ICD-10- CM 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, unspeci fied type YOANA DENG R 12/29 [facility] Outpatient Encounter [id number] 01/08 [facility] Out[facility] Encounter [id number] GALINA ALVARADO 01/09 [facility] En[facility] [id number] 01/15 [facility] OFFICE O/P EST LOW 20 MIN [id number] Diagnos is: ICD-10- CM 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, predom inatten tive type YOANA DENG 01/28 [facility] Outpatient Encounter [id number] 02/13 [facility] Outpatient Encounter [id number] 02/22 [facility] OFFICE O/P EST LOW 20 MIN [id number] Diagnos is: ICD-10- CM 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, predom inatten tive type YOANA DENG 02/25 [facility] Outpatient Encounter [id number] 03/08 [facility] [place] [facility] COMPRE OPH EXAM NEW PT 1/> [id number] Diagnos is: ICD-10- CM Z98.41 Catarac t extract ion status, right eye MAO,PAYAL LA S 03/11 [facility] Outpatient Encounter [id number] 03/18 [facility] Outpatient Encounter [id number] 03/26 [facility] OFFICE O/P EST LOW 20 MIN [id number] Diagnos is: ICD-10- CM 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, predom inatten tive type YOANA DENG R 03/27 [facility] Outpatient Encounter [id number] 04/29 [facility] O/P EST LOW 20 MIN [id number] Diagnos is: ICD-10- CM 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, predom inatten tive type YOANA DENG 04/30 [facility] Outpatient Encounter [id number] 04/30 [facility] Encounter [id number] 05/31 [facility] OFFICE O/P EST LOW 20 MIN [id number] Diagnos is: ICD-10- CM 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, predom inatten tive type YOANA DENG 06/03 [facility] OFFICE O/P EST LOW 20 MIN [id number] Diagnos is: ICD-10- CM 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, predom inatten tive type YOANA DENG 07/04 [facility] Outpatient Encounter [id number] 07/05 [facility] [id number] 07/12 [facility] Out[facility] Encounter [id number] CHARISSA BROWN 07/12 [facility] Outpatient Encounter [id number] Diagnos is: ICD-10- CM Z00.00 Encntr for general adult medical exam w/o abnorma l finding s CHARISSA BROWN R 07/12 [facility] Outpatient Encounter [id number] 07/16 [facility] Outpatient Encounter [id number] 07/17 [facility] Outpatient Encounter [id number] [id number] 07/19 [facility] Outpatient Encounter [id number] [id number] 08/02 [facility] Outpatient Encounter [id number] [id number] 08/05 [facility] Outpatient Encounter [id number] 08/06 [facility] Outpatient Encounter [id number] [id number] 08/09 [facility] SPECIAL SUPPLIES PHYS/QHP [id number] Diagnos is: ICD-10- CM G47.33 Obstruc tive sleep apnea (adult) (pediat debbi) LUIS FELIPE WYATT B 08/09 [place] [facility] Outpatient Encounter [id number] EDDIE SCALES 08/21 [facility] OFFICE O/P EST LOW 20 MIN [id number] Diagnos is: ICD-10- CM 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, predom inatten tive type YOANA DENG 08/22 [facility] Outpatient Encounter [id number] 08/23 [facility] [place] [facility] Outpatient Encounter [id number] 09/20 [place] [facility] Outpatient Encounter [id number] 09/23 [facility] OFFICE O/P EST LOW 20 MIN [id number] Diagnos is: ICD-10- CM 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, predom inatten tive type YOANA DENG 09/24 [facility] Outpatient Encounter [id number] 09/26 [facility] Encounter [id number] 10/14 [facility] Outpatient Encounter [id number] [id number] 10/25 [facility] Encounter [id number] 10/28 [facility] OFFICE O/P EST SF 10 MIN [id number] Diagnos is: ICD-10- CM 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, predom inatten tive type YOANA DENG 10/29 [facility] Outpatient Encounter [id number] CHARISSA BROWN R 11/18 [facility] OFF/OP EST MAY X REQ PHY/QHP [id number] Diagnos is: ICD-10- CM R09.81 Nasal congest ion CUSTRED,TO RRI J 11/18 [facility] Outpatient Encounter [id number] 11/22 [facility] Outpatient Encounter [id number] [id number] 11/28 [facility] OFFICE O/P EST MOD 30 MIN [id number] Diagnos is: ICD-10- CM 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, unspeci fied type YOANA DENG R 11/29 [facility] Outpatient Encounter [id number] 12[facility]04 [facility] En[facility] [id number] [id number] CHARISSA BROWN R 12/23 [facility] OFFICE O/P EST MOD 30 MIN [id number] Diagnos is: ICD-10- CM R01.1 Cardiac murmur, unspeci fied CHARISSA BROWN R 12/23 [facility] Outpatient Encounter [id number] 12/23 [facility] [id number] [id number] 12/30 [facility] Outpatient Encounter [id number] [id number] 12/30 [facility] [place] [facility] Outpatient Encounter [id number] [id number] 12/30 [facility] [facility] Out[facility] Encounter [id number] [id number] CHARISSA BROWN R 01/02 [facility] OFF/OP EST MAY X REQ PHY/QHP [id number] Diagnos is: ICD-10- CM R05.9 Cough, unspeci fied CUSTRED,TO RRI J 01/02 [facility] Outpatient Encounter [id number] 01/03 [facility] Outpatient Encounter [id number] [id number] 01/07 [facility] [place] [facility] PH1 ASSMT&MGMT NQHP 21-30 [id number] Diagnos is: ICD-10- CM Z85.72 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 JUAN CHRISTIANSEN P 01/08 [place] [facility] Outpatient Encounter [id number] 01/13 [place] [facility] OFFICE O/P EST MOD 30 MIN [id number] Diagnos is: ICD-10- CM 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, unspeci fied type YOANA DENG R 01/14 [facility] Outpatient Encounter [id number] 01/16 [facility] Outpatient Encounter [id number] 01/16 [facility] Outpatient Encounter [id number] EDDIE SCALES M 02/10 [facility] OFFICE O/P EST LOW 20 MIN [id number] Diagnos is: ICD-10- CM 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, unspeci fied type YOANA DENG R 02/11 [facility] Outpatient Encounter [id number] 02/12 [facility] Outpatient Encounter [id number] [id number] 02/17 [facility] Outpatient Encounter [id number] 02/17 [facility] Outpatient Encounter [id number] [id number] 02/19 [facility] Outpatient Encounter [id number] 02/28 [facility] Outpatient Encounter [id number] [id number] INGRID KU SSA D 03/03 [facility] Outpatient Encounter [id number] EDDIE SCALES M 03/13 [facility] Outpatient Encounter [id number] 03/17 [facility] Outpatient Encounter [id number] 03/19 [facility] Outpatient Encounter [id number] 03/20 [facility] Outpatient Encounter [id number] 03/20 [facility] Outpatient Encounter [id number] 03/21 [facility] CB OFFICE O/P EST LOW 20 MIN [id number] Diagnos is: ICD-10- CM 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, unspeci fied type YOANA DENG R 03/21 [facility] Outpatient Encounter [id number] CHARISSA BROWN R 04/07 [facility] OFFICE O/P EST LOW 20 MIN [id number] Diagnos is: ICD-10- CM E04.1 Nontoxi c single thyroid nodule CHARISSA BROWN THERMOLINA R 04/07 [facility] Outpatient Encounter [id number] 04/18 [facility] SYNCH AUDIO-VIDE O EST LOW 20 [id number] Diagnos is: ICD-10- CM 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, unspeci fied type YOANA DENG R 04/22 [facility] Outpatient Encounter [id number] 04/23 [facility] Outpatient Encounter [id number] 04/24 [facility] Out[facility] Encounter [id number] 04/28 [facility] Outpatient Encounter [id number] 04/30 [facility] Outpatient Encounter [id number] 04/30 [facility] [place] [facility] Outpatient Encounter [id number] 04/30 [place] [facility] Outpatient Encounter [id number] 04/30 [place] [facility] Outpatient Encounter [id number] 05/01 [facility] Outpatient Encounter [id number] 05/01 [facility] [place] [facility] Outpatient Encounter [id number] 05/02 [place] [facility] Social History Combined list of available smoking, tobacco, and other social history from Department of Defense and Veterans Affairs facilities. Social History Type Response Date Comment Sourc e Tobacco smoking status NHIS [facility] NEVER USED 07[facility]12/20[place] [facility] History of tobacco use VA-TOBACCO FORMER USER 07/04/2023 [facility] [place] [facility] History of tobacco use VA-TOBACCO FORMER USER 07/08/2022 [facility] History of tobacco use VA-TOBACCO QUIT 15 YRS OR MORE 01/18/2022 [facility] History of tobacco use VA-TOBACCO FORMER USER 01/20/2021 [facility] History of tobacco use MS-TOBACCO QUIT 5 TO < 15 YRS 01/02/2020 [facility] History of tobacco use VA-TOBACCO FORMER USER 11/01/2018 [facility] History of tobacco use V7-LIFETIME NON/TOBACCO USER 01/18/2018 [place] History of tobacco use V7-TOBACCO USE NONE IN > 7 YEARS 02/21/2017 [facility] History of tobacco use V7-LIFETIME NON/TOBACCO USER 11/30/2015 [place] History of tobacco use V7-LIFETIME NON/TOBACCO USER 01/16/2015 [place] History of tobacco use V7-TOBACCO USE NONE IN > 7 YEARS 05/28/2013 [place] History of tobacco use V7-TOBACCO USE NONE IN > 7 YEARS 05/22/2012 [facility] History of tobacco use V7-TOBACCO USE NONE IN > 7 YEARS 10/28/2011 [place] History of tobacco use V7-TOBACCO USE NONE IN > 7 YEARS 11/18/2009 [place] History of tobacco use V7-LIFETIME NON/TOBACCO USER 11/12/2008 [place] This section is an empty social history section. DoD Plan of Care List of future care activities from Department of Veterans Affairs facilities. Additional future care activities may be listed in the Assessment and Plan section. Date/Time Care Activity Care Activity Detail Facili ty 05/04/2025 AMBULATORY - MEDICINE [facility] Advance Directives List of completed, amended, or rescinded Advance Directives on record at Department of Veterans Affairs facilities. An actual copy of the Directive is not included. Date Advance Directive Provider Source 01/20/2022 ADVANCE DIRECTIVE DISCUSSION DEE DEE W[place] [facility] 01/20/2021 ADVANCE DIRECTIVE DISCUSSION DEE DEE WASHINGTON [facility] 12/24/2018 ADVANCE DIRECTIVE DISCUSSION BLESSING LOPEZ [facility] 10/09/2017 ADVANCE DIRECTIVE DISCUSSION BLESSING LOPEZ [facility] 04/21/2016 ADVANCE DIRECTIVE DISCUSSION BLESSING [facility]OPEZ 01/06/2015 ADVANCE DIRECTIVE DISCUSSION BLESSING [facility] 06/14/2013 ADVANCE DIRECTIVE DISCUSSION [facility] 05/28/2013 ADVANCE DIRECTIVE DISCUSSION YUE PENA 05/24/2012 ADVANCE DIRECTIVE DISCUSSION ISHA VÁZQUEZ [facility] 05/22/2012 ADVANCE DIRECTIVE DISCUSSION ZAINAB BENNETT [facility] 10/28/2011 ADVANCE DIRECTIVE DISCUSSION BLESSING [facility]OPEZ 10/18/2010 ADVANCE DIRECTIVE DISCUSSION DORY CASTRO 12/22/2008 ADVANCE DIRECTIVE DISCUSSION GETACHEW WORLEY 11/12/2008 ADVANCE DIRECTIVE DISCUSSION JOELLE BULLARD
[2025-05-04 22:17] LABS: INR 1.13 (0.8-1.2); Partial Thromboplastin Time 27.4 SECONDS (23.9-36.7)
[2025-05-04 22:24] LABS: Alanine Aminotransferase 17 U/L (0-41); Alkaline Phosphatase 66 U/L (40-130); Anion Gap 14.2 (5-19); Aspartate Amino Transferase 18 U/L (0-40); Blood Urea Nitrogen 22 mg/dL (6-20); Calcium 8.4 mg/dL (8.5-10.5); Carbon Dioxide 26 mmol/L (22-29); Chloride 101 mmol/L (98-107); Creatinine Clr Calc Pharmacy 84.3618; Globulin 3.4 g/dL (1.3-4.6); Glomerular Filtration Rate 62.4 mL/min (90-130); Glucose 107 mg/dL (65-115); Osmolality Calculated 288 mOsm/kg (285-295); Potassium 4.2 mmol/L (3.5-5.1); Sodium 137 mmol/L (136-145); Total Bilirubin 0.3 mg/dL (0.15-1.2); Total Protein 6.4 g/dL (6.6-8.7)
[2025-05-04 22:56] VITALS: BP 129/81; PULSE 81; O2SAT 98
[2025-05-04 23:44] LABS: Bilirubin Urine Negative (Negative); Blood Urine 1+ (Negative); Glucose Urine UA Negative (Normal); Ketones Urine Negative (Negative); Leukocyte Esterase Urine Negative (Negative); Nitrate Urine Negative (Negative); Protein Urine Negative (Negative); Urine Appearance Clear (CLEAR); Urine Color Yellow (Yellow); pH Urine 5.5 (5-7)
[2025-05-04 23:45] VITALS: BP 125/81; PULSE 77; RESP 16; O2SAT 98
[2025-05-04 23:49] LABS: Add Urine Microscopic? YES; Bacteria Urine None Seen /hpf; RBC Urine 0-2 /hpf (0-2); Squamous Epithelial Cell Urine 0-5 /hpf (0-5); WBC Urine 0-5 /hpf (0-5)
[2025-05-04 23:51] LABS: Amphetamines Screen Urine Negative (Negative); Barbiturates Screen Urine Negative (Negative); Benzodiazepines Screen Urine Negative (Negative); Cocaine Screen Urine Negative (Negative); Opiate Screen Urine Negative (Negative); PCP Screen Urine Negative (Negative); THC Screen Urine Negative (Negative)
[2025-05-04 23:56] LABS: Specific Gravity, Urine 1.042 (1.005-1.030)
[2025-05-05] VITALS (15 sets, daily range): BP systolic 99–145; BP diastolic 60–95; PULSE 0–82; RESP 12–20; TEMP 36.5–37.2; O2SAT 95–100
[2025-05-05] MEDS: heparin 5,000 unit/mL INJ 1 mL IVP (01:50)
[2025-05-05] MEDS: heparin drip 25,000 UNIT/500 ML PREMIX 29 UNIT IV (01:57)
--- NOTE | 2025-05-05 02:20 | PM.HP ---
Providers/Chief Complaint Admitting Physician: Richard Felix MD Primary Care Provider: MORRO Ott Chief Complaint: Stroke Alert History of Present Illness Richard Fofana is a 59 year old male with history of abnormal stress test followed by Selective coronary angiogram showing left circumflex with proximal 70% stenosis. He had aortic valve area of 1.1 cm? with severe aortic valve calcification and moderate aortic valve stenosis with mild to moderate regurg. Patient underwent CABG one-vessel and aortic valve replacement with tissue valve on Monday. He states the process was complicated by inability to obtain graft from either leg and harvest from left forearm plus atrial fibrillation started on amiodarone. He states he was not started on Plavix or anticoagulation. Patient had history of Hodgkin's lymphoma 1995 with 2 to 3 weeks of daily radiation to his sternum and retrosternal and was told that he would have heart disease and possibly valve stenosis at a later date as a result. He is otherwise cured of lymphoma Patient developed sudden onset of left arm weakness numbness and left facial droop with dysarthria around 8:15 PM. His stroke score was 4 but he was not a candidate for thrombolytics due to recent open heart surgery. Case was discussed with [facility] neurology by Dr. Molina Review of Systems Narrative: General No fevers chills night sweats hot flashes or weight change Cardiovascular no chest pain he does have dyspnea on exertion still states he is only slowly bring his activity back due to his lungs are still collapsed. He denies cough but does have sleep apnea and has his CPAP machine with him here today Respiratory positive for sleep apnea and recent cough. He states he gets rainout on his hose which is not heated GI no nausea vomiting diarrhea constipation abdominal pain no dysuria hematuria incontinence Neuro no history of seizures or strokes prior to this episode Hematologic no blood clots in legs or lungs he has had Hodgkin's lymphoma Medications/Allergies Home Medications ?Medication ?Instructions ?Recorded ?Confirmed ?Last Taken ?Type methylphenidate HCl 10 mg tablet 10 mg PO DAILY 10/27/22 02/17/25 01/29/25 12:00 History (Ritalin) nitroglycerin 0.4 mg sublingual 0.4 mg sublingual Q5M PRN chest 02/17/25 02/17/25 Unknown Rx tablet pain #30 tabs Allergies Allergy/AdvReac Type Severity Reaction Status Date / Time Iodinated Contrast Media Allergy ALGY-Hives Verified 02/17/25 14:52 PFSH Acute PFSH: Medical History (Updated 05/05/25 @ 02:34 by Richard Felix MD) Peripheral neuropathy ADHD (attention deficit hyperactivity disorder) Personal history of Hodgkin lymphoma Heart murmur Surgical History (Updated 05/05/25 @ 02:35 by Richard Felix MD) History of aortic valve replacement History of coronary artery bypass graft x 1 History of right inguinal hernia repair History of knee surgery Right Family History Grandfather CAD (coronary artery disease) Mother Cancer lung cancer - smoker Psychiatric illness depression Grandmother Dementia Stroke Denies family history of Diabetes Clotting disorder Hyperlipidemia Chronic kidney disease (CKD) Suicide Anesthesia complication Bleeding disorder Lung disease Hypertension Social History (Updated 05/05/25 @ 02:30 by Richard Felix MD) Smoking and tobacco/nicotine status: former use of tobacco/nicotine Quit status (tobacco/nicotine): has quit using Year quit tobacco: 1991 Former quit date comment: Smoked 3 packs/day for 10 years Alcohol intake: current Alcohol intake frequency: holidays/special occasions only Substance/Drug Use: never Additional social history: Patient is accompanied by his girlfriend Awilda Cyr. 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 and prior to that [employer] Vitals/I&O/Wt Last Vital Signs Temp 98.2 F 05/04/25 21:52 Pulse 80 05/05/25 00:00 Resp 15 05/05/25 00:00 BP 121/78 05/05/25 00:00 Pulse Ox 97 05/05/25 02:11 O2 Del Method Room Air 05/05/25 02:11 05/04/25 05/04/25 05/05/25 14:59 22:59 06:59 Intake Total 0 / 0 Balance 0 / 0 Weight last 48 hrs Weight 106.594 kg Weight 106.594 kg Physical Exam Narrative: General well-developed well-nourished male robust appearance CV regular with frequent ectopy he has a faint or absent S1 3/6 to 4/6 systolic ejection murmur and a strong S2 Lungs diminished in the bases otherwise clear Abdomen positive bowel sounds soft nontender Calves 1+ bilateral pretibial edema not asymmetric. Skin he has median sternotomy scar bilateral SVG harvest attempt sites and left arm following the radial vascular course. He also has a remaining silk or nylon suture left arm left wrist mildly tender Mentation alert and orient x 3 Neuro he has left facial droop left hand weakness 4-/5 compared to 5/5 on the right. Ankle flexion extension 5/5 bilateral Data 05/04/25 21:53 05/04/25 21:53 A&P Assessment and plan (1) Cerebrovascular accident: Patient will have MRI and echocardiogram. He has CTA shows his carotids to be relatively free of significant vascular disease. Start PT and OT. Patient was not a candidate for thrombolytics due to recent open heart surgery. I have discussed with him the risk and benefits of anticoagulation and he will stay on anticoagulation for A-fib and recent stroke. If if no signs of bleeding then he will be switched to apixaban prior to discharge (2) Valvular heart disease: Obtain echocardiogram recent tissue aortic valve replacement (3) Atrial fibrillation: Appears to be paroxysmal. He is currently sinus with PACs and PVCs (4) Sleep apnea: Resume home CPAP. He has a ResMed 11 machine but not a heated hose and admits to rainout with the hose. I did not check his settings. Recommend heated hose (5) ADHD (attention deficit hyperactivity disorder): He is off his Ritalin as he was told to hold that. He states he is holding him until he is released to take it again (6) History of coronary artery bypass graft x 1: Continue enteric-coated aspirin 81 mg daily (7) History of aortic valve replacement: As above combined with A-fib and stroke we will continue with anticoagulation apixaban if no bleeding on heparin drip during his hospitalization PDMP PDMP Reviewed: Not Reviewed Attestations Medical Necessity Statement*: Patient is admitted the hospital with CVA with anticipated hospitalization to span greater than 2 midnights Coding Level of Care Code Acute Code for [facility] Fwd Diagnoses Cerebrovascular accident I63.9 Valvular heart disease I38 Atrial fibrillation I48.91 Sleep apnea G47.30 ADHD (attention deficit hyperactivity disorder) F90.9 History of coronary artery bypass graft x 1 Z95.1 History of aortic valve replacement Z95.2 Time Spent (min) 70
--- NOTE | 2025-05-05 02:40 | MR_ITS ---
WS: [id number] MRI BRAIN WITHOUT CONTRAST HISTORY: Stroke with dysarthria and left-sided weakness COMPARISON: CT head 05/04/2025 TECHNIQUE: Diffusion imaging, multiplanar T1, T2 and FLAIR imaging obtained. Diffusion weighted imaging is positive for bilateral infarcts. Greater diffusion abnormality in the RIGHT supratentorial brain predominantly involving the posterior frontal and RIGHT parietal cortex. There are additional smaller foci of increased supratentorial diffusion abnormalities in the LEFT centrum semiovale. No posterior fossa or brainstem abnormality. Focus of hemosiderin in the LEFT occipital lobe. No acute hemorrhage. Additional very mild volume loss and increased T2 and FLAIR signal hyperintensities in the periventricular white matter from small vessel disease most likely. No midline shift or mass effect. Ventricles and extra-axial spaces are normal. No inferior displacement of cerebellar tonsils. The sella turcica and pituitary gland are unremarkable. Dural venous sinuses and [place] of [place] demonstrate no abnormality on this unenhanced studies. Paranasal sinuses: Air-fluid level in the RIGHT maxillary sinus. Mild mucoperiosteal thickening of the RIGHT maxillary sinus. Mastoid air cells: Normal. Calvarium and scalp: Intact. MR/MR head wo con* [id number] IMPRESSION: 1. Acute bilateral supratentorial infarcts. Greater distribution of scattered acute infarcts involving the RIGHT supratentorial brain, RIGHT frontal and buddy etal lobes. Few additional scattered acute infarcts in the LEFT centrum semiova le. Due to bilateral acute infarcts consider embolic source. 2. Otherwise mild chronic small vessel ischemic changes. 3. No hydrocephalus. 4. Tiny focus of hemosiderin LEFT occipital lobe. 5. RIGHT maxillary sinusitis. Notified Richard Felix MD at 05/06/2025 10:19 AM.
--- NOTE | 2025-05-05 02:40 | USCV_ITS ---
Richard Fofana Age: 59 Gender: M : 1965 Exam Date: 05/05/2025 09:26 Ordering Phys: Richard Felix MD Technologist: [place] [facility] [place] cva post av tavor 1 week ago BP: 145 / 72 HR: 85 Rhythm: Sinus Technical Quality: Adequate MEASUREMENTS (Male / Female) Normal Values 2D ECHO LV Diastolic Diameter PLAX 4.7 cm 4.2 - 5.9 / 3.9 - 5.3 cm IVS Diastolic Thickness 1.4 cm 0.6 - 1.0 / 0.6 - 0.9 cm IVS Systolic Thickness 1.7 cm LVPW Diastolic Thickness 1.5 cm 0.6 - 1.0 / 0.6 - 0.9 cm LVPW Systolic Thickness 1.7 cm LVOT Diameter 2.1 cm LV Ejection Fraction 2D Teich 69.8 % LV Ejection Fraction MOD 4C 71.5 % LV Ejection Fraction MOD 2C 63.9 % LV Ejection Fraction 2C AL 63.5 % LA Diameter 4.2 cm RA Systolic Volume 4C AL 60.3 ml RA Systolic Volume 4C MOD 59.4 ml LA Sys Volume AL 76.6 cm cubed LA Sys Volume Index AL 34.1 cm cubed/m squared Aorta at Sinotubular Diameter 2.6 cm M-MODE LA Ao Ratio MM 1.4 AV Cusp Separation MM 2.0 cm DOPPLER AV Peak Velocity 143.0 cm/s LVOT Peak Velocity 100.0 cm/s AV Area Cont Eq vti 2.5 cm squared AV Area Cont Eq pk 2.4 cm squared MV Peak Velocity 138.0 cm/s MV Area PHT 5.8 cm squared Mitral E to A Ratio 3.8 TR Peak Velocity 162.0 cm/s TR Peak Gradient 10.5 mmHg TV Peak E Velocity 259.0 cm/s PV Peak Velocity 133.0 cm/s FINDINGS Left Ventricle Technically limited quality echocardiogram because of poor ultrasonic windows. LV systolic function is normal with EF of 60-65%. No regional wall motion abnormalities are seen. Right Ventricle Normal in size and function Right Atrium Normal in size Left Atrium Dilated Mitral Valve Mild mitral annular calcification. Trace mitral regurgitation Aortic Valve Possible bioprosthetic aortic valve. No significant stenosis. Tricuspid Valve Mild tricuspid regurgitation. Pulmonary artery systolic pressure is normal. Pulmonic Valve Not well visualized Pericardium Normal Aorta Normal in size IVC Appears to be normal CONCLUSIONS Technically limited quality echocardiogram because of poor ultrasonic windows. LV systolic function is normal with EF of 60 to 65%. Left atrial dilation Trace mitral regurgitation Possible bioprosthetic aortic valve. Mild tricuspid regurgitation Ino Abrams MD (Electronically Signed) Final Date: 05 May 2025 17:16 S
[2025-05-05] MEDS: lactated ringers 1,000 ML 100 ML IV (03:35)
--- OUTSIDE RECORDS SUMMARY | 2025-05-05 06:29 | XMS_ITS | Clinical Summary ---
Author Organization Tamar Gutierrez [facility] Address [address] [place] [address] Phone Care Team Providers Care Assessment Specialist Name Role Phone Unavailable Primary Care Provider Unavailabl e Allergies Active Allergy Reactions Criticality Noted Date Comments Iodinated Contrast Media Hives High 11/19/2008 [place] Nausea and Vomiting Low 10/30/2017 Medications methylphenidate HCl (RITALIN) 10 mg tablet Take 30 mg by mouth 2 times daily. 02/11/2025 Active Active Problems Problem Noted Date Diagnosed Date Musculoskeletal chest pain 03/02/2025 Encounters Date Type Department Care Team Description 04/29/2025 External Device Data [facility] ABSTRACTION Provider, Abstract 04/29/2025 External Device Data ST[facility] ABSTRACTION Provider, Abstract 04/10/2025 External Device Data [facility] ABSTRACTION Provider, Abstract 04/01/2025 External Device Data [facility] ABSTRACTION Provider, Abstract 04/01/2025 External Device Data ST[facility] ABSTRACTION Provider, Abstract 04/01/2025 External Device Data ST[facility] ABSTRACTION Provider, Abstract 03/04/2025 External Device Data ST[facility] ABSTRACTION Provider, Abstract 03/04/2025 External Device Data ST[facility] ABSTRACTION Provider, Abstract 03/04/2025 External Device Data ST[facility] ABSTRACTION Provider, Abstract 03/02/2025 12:18 PM CDT - 03/02/2025 2:42 PM CDT Emergency [facility] [address] [facility] [address] [place] [id number] Ulises Rodriguez MD Musculoskeletal chest pain (Primary Dx) Discharge Disposition: Home or Self Care 03/02/2025 Travel from Last 3 Months Social History Tobacco Use Types Packs/Day Years Used Date Smoking Tobacco: Never Smokeless Tobacco: Never Tobacco Cessation:Counseling Given: Not Answered Alcohol Use Standard Drinks/Week Comments Never 0 (1 standard drink = 0.6 oz pur e alcohol) Feeling Safe Answer Date Recorded Are you in a relationship wi th someone who hurts you emotionally and/or physically? No 03/02/2025 Sex and Gender Information Value Date Recorded Sex Assigned at Not on file Legal Sex Male 12:18 PM CDT Gender Identity Not on file Sexual Orientation Not on file Last Filed Vital Signs Vital Sign Reading Time Taken Comments Blood Pressure 152/79 03/02/2025 2:00 PM CDT Pulse 71 03/02/2025 2:00 PM CDT Temperature 36.6 C (97.8 F) 03/02/2025 12:22 PM CDT Respiratory Rate 14 03/02/2025 2:00 PM CDT Oxygen Saturation 96% 03/02/2025 2:00 PM CDT Inhaled Oxygen Concentration - - Weight 104.6 kg (230 lb 9.6 oz) 025 12:22 PM CDT Height 180.3 cm (5' 11 ) 03/02/2025 12: 22 PM CDT Body Mass Index 32.16 03/02/2025 12:22 PM CDT Plan of Treatment Health Maintenance Due Date Last Done Comments Pre-Diabetes and Diabetes Screening 1965 DTAP/TDAP/TD VACCINES (1 - Tdap) 1986 HEPATITIS B VACCINES (1 of 3 - 19+ 3-dose series) 08/20 COLORECTAL SCREENING 2012 Colorectal Cancer Screening 2012 FIT-DNA Q 3 years 2012 FIT/FOBT Q 1 year 2012 Flex Sig/CT Colonography Q 5 years 2012 ZOSTER VACCINE (1 of 2) 2017 INFLUENZA VACCINE (#1) 2024 Procedures Procedure Name Priority Date/Time Associated Diagnosis Comments EKG 12-LEAD Stat 03/02/2025 2:52 PM CDT TROPONIN 2 HR, 5TH GEN Timed Study 03/02/2025 2:07 PM CDT XR CHEST PA OR AP 1 VW Stat 03/02/2025 12:53 PM CDT DIFFERENTIAL, MANUAL Stat 03/02/2025 12:35 PM CDT TROPONIN BASELINE, 5TH GEN Stat 03/02/2025 12:35 PM CDT DRUG SCREEN, URINE Stat 03/02/2025 12 :35 PM CDT URINALYSIS W/REFLEX MICROSCOPIC Stat 03/02/2025 12:35 PM CDT MAGNESIUM LEVEL Stat 03/02/2025 12:35 PM CDT TSH Stat 03/02/2025 12:35 PM CDT C-REACTIVE PROTEIN Stat 03/02/2025 12 :35 PM CDT BRAIN NATRIURETIC PEPTIDE, BNP OR PROBNP Stat 03/02/2025 12:35 PM CDT COMPREHENSIVE METABOLIC PANEL Stat 03/02/2025 12:35 PM CDT SEDIMENTATION RATE Stat 03/02/2025 12 :35 PM CDT D-DIMER Stat 03/02/2025 12:35 PM CDT PTT Stat 03/02/2025 12:35 PM CDT PROTIME-INR Stat 03/02/2025 12:35 PM CDT CBC WITH DIFFERENTIAL Stat 03/02/2025 12:35 PM CDT from Last 3 Months Results * EKG 12-LEAD (03/02/2025 2:52 PM CDT) Narrative Ulises Rodriguez MD - 03/02/2025 2:52 PM CDT Ulises Rodriguez MD 03/03/2025 8:01 AM EKG 12-LEAD Date/Time: 03/02/2025 2:52 PM Performed by: Ulises Rodriguez MD Authorized by: Ulises Rodriguez MD ECG interpreted by ED Physician in the absence of a band head saw operator: yes Rate: ECG rate: 71 ECG rate assessment: age appropriate Rhythm: Rhythm Origin: sinus Blocks: AV: 1st BBB: Left QRSTT: QRSTT changes: Yes Comments: Various nonspecific T wave changes, however noes ST segment elevation. Ulises Rodriguez MD ECG ORDERABLES Final Result * TROPONIN 2 HR, 5TH GEN (03/02/2025 2:07 PM CDT) TROPONIN T, 2 HR 5TH GEN 10 <=15 ng/L 03/02/2025 2:34 PM CDT [facility] DELTA 2HR TROPONIN T 0 See Interp. 03/02/2025 2:34 PM CDT [facility] Blood Venipuncture / Unknown 03/02/2025 2:07 PM CDT 03/02/2025 2:11 PM CDT Narrative [facility] - 03/02/2025 2:34 PM CDT Troponin Detectable but normal range. Delta not changing. Ulises Rodriguez MD CHEMISTRY ORDERABLES [id number] [address] [place] [id number] * XR CHEST PA OR AP 1 VW (03/02/2025 12:53 PM CDT) Anatomical Region Laterality Modality Chest Computed Radiogr aphy 03/02/2025 12:5 3 PM CDT Impressions 03/02/2025 1:07 PM CDT IMPRESSION: Pulmonary hyperinflation without acute infiltrate. Narrative 03/02/2025 1:07 PM CDT Exam: XR CHEST PA OR AP 1 VW Date/Time of Exam: 03/02/2025 12:53 PM Reason For Exam: Chest Pain. Diagnosis: See Reason for Exam. Comparison: None. Findings: The cardiomediastinal structures are within normal limits. The lungs are hyperinflated. No consolidative infiltrate, pleural effusion or pneumothorax is identified. The osseous structures appear grossly intact. Procedure Note Felipe Izquierdo, DO - 03/02/2025 Exam: XR CHEST PA OR AP 1 VW Date/Time of Exam: 03/02/2025 12:53 PM Reason For Exam: Chest Pain. Diagnosis: See Reason for Exam. Comparison: None. Findings: The cardiomediastinal structures are within normal limits. The lungs are hyperinflated. No consolidative infiltrate, pleural effusion or pneumothorax is identified. The osseous structures appear grossly intact. IMPRESSION: Pulmonary hyperinflation without acute infiltrate. us Ulises Rodriguez MD DIAGNOSTIC IMAGING ORDERABLES F inal Result * TROPONIN BASELINE, 5TH GEN (03/02/2025 12:35 PM CDT) Pathologist [facility] TROPONIN T, BASELINE 5TH GEN 10 <=15 ng/L 03/02/2025 1:15 PM CDT [facility] Blood Venipuncture / Unknown 03/02/2025 12:35 PM CDT 03/02/2025 12:42 PM CDT Narrative [facility] - 03/02/2025 1:15 PM CDT Troponin Detectable but normal range. us Ulises Rodriguez MD CHEMISTRY ORDERABLES Final [facility]u [id number] [address] [place] [id number] * (ABNORMAL) MANUAL DIFFERENTIAL (03/02/2025 12:35 PM CDT) SEGMENTED NEUTROPHILS 53 45 - 70 % 03/02/2025 1:09 PM CDT [facility] LYMPHOCYTES RELATIVE 35 20 - 45 % 03/02/2025 1:09 PM CDT [facility] MONOCYTES RELATIVE 9(H) 2 - 8 % 03/02/2025 1:09 PM CDT [facility] EOSINOPHILS RELATIVE 3 0 - 5 % 03/02/2025 1:09 PM CDT [facility] NEUTROPHILS ABSOLUTE COUNT 4.56 1.78 - 5.38 K/uL 03/02/2025 1:09 PM [facility] LYMPHOCYTES ABSOLUTE 3.01 1.20 - 4.00 K/uL 03/02/2025 1:09 PM [facility] MONOCYTES ABSOLUTE 0.77 0.30 - 0.82 K/uL 03/02/2025 1:09 PM [facility] EOSINOPHILS ABSOLUTE 0.26 0.04 - 0.54 K/uL 03/02/2025 1:09 PM [facility] TOTAL CELLS COUNTED IN DIFF 100 03/02/2025 1:09 PM [facility] PLATELET EST. Adequate 03/02/2025 1:09 PM [facility] RBC MORPHOLOGY Normal 03/02/2025 1:09 PM [facility] GIANT PLATELETS Present 1:09 PM [facility] Blood Venipuncture / Unknown 03/02/2025 12:35 PM CDT 03/02/2025 12:42 PM CDT us Ulises Rodriguez MD HEMATOLOGY ORDERABLES COM Final Result [facility] [id number] [address] [place] [id number] * (ABNORMAL) CBC WITH DIFFERENTIAL (03/02/2025 12:35 PM CDT) WBC 8.6 4.2 - 9.1 K/uL 03/02/2025 1:09 PM [facility] RBC 4.89 4.63 - 6.08 M/uL 03/02/2025 1:09 PM [facility] HEMOGLOBIN 13.8 13.7 - 17.5 g/dL 03/02/2025 1:09 PM [facility] HEMATOCRIT 42.7 40.1 - 51.0 % 03/02/2025 1:09 PM [facility] MCV 87.3 79.0 - 92.2 fL 03/02/2025 1:09 PM [facility] MCH 28.2 25.7 - 32.2 pg 03/02/2025 1:09 PM CDT [facility] MCHC 32.3 32.3 - 36.5 g/dL 03/02/2025 1:09 PM CDT [facility] RDW 15.7(H) 11.0 - 14.5 % 03/02/2025 1:09 PM CDT [facility] RDW-STDEV 50.4 36.9 - 56.9 fL 03/02/2025 1:09 PM CDT [facility] PLATELETS 259 130 - 400 K/uL 03/02/2025 1:09 PM CDT [facility] MPV 10.7 10.0 - 14.8 fL 03/02/2025 1:09 PM T [facility] Blood Venipuncture / Unknown 03/02/2025 12:35 PM CDT 03/02/2025 12:42 PM CDT us Ulises Rodriguez MD HEMATOLOGY ORDERABLES Final Res ult [facility] [id number] [address] [place] [id number] * DRUG SCREEN, URINE (03/02/2025 12:35 PM CDT) CANNABINOIDS QUAL, URINE Negative Negative 03/02/2025 1:15 PM CDT [facility] PCP QUAL, URINE Negative Negative 1:15 PM CDT [facility] COCAINE QUAL URINE Negative Negative 2024 1:15 PM CDT [facility] METHAMPHETAMINE QUAL, URINE Negative Negative 03/02/2025 1:15 PM CDT [facility] OPIATE QUAL, URINE Negative Negative 2024 1:15 PM CDT [facility] AMPHETAMINE QUAL, URINE Negative Negative 03/02/2025 1:15 PM CDT [facility] BENZODIAZEPINE QUAL, URINE Negative Negative 03/02/2025 1:15 PM CDT [facility] TRICYCLICS QUAL, URINE Negative Negative 03/02/2025 1:15 PM CDT [facility] METHADONE QUAL, URINE Negative Negative 03/02/2025 1:15 PM CDT [facility] BARBITURATE QUAL, URINE Negative Negative 03/02/2025 1:15 PM CDT [facility] OXYCODONE QUAL, URINE Negative Negative 03/02/2025 1:15 PM CDT [facility] Urine URINE SPECIMEN OBTAINED BY CLEAN CATCH PROCEDURE / Unknown Collection / Unknown 03/02/2025 12:35 PM CDT 03/02/2025 12:45 PM CDT Narrative [facility] - 03/02/2025 1:15 PM CDT This test is a qualitative screen. The presumptive positive results should not be used for legal purposes. If confirmation of results is desired, the lab must be contacted without delay. Drug Screening Threshold Amphetamines 500 ng/mL Barbiturates 200 ng/mL Benzodiazepines 150 ng/mL Cocaine Metabolites 150 ng/mL Methamphetamine 500 ng/mL Methadone 200 ng/mL Opiates 100 ng/mL Oxycodone 100 ng/mL Phencyclidine 25 ng/mL THC Cannabinoids 50 ng/mL Tricyclic Antidepressants 300 ng/mL us Ulises Rodriguez MD URINE ORDERABLES Final Result [facility] [id number] [address] [place] [address] [id number] * URINALYSIS WITH REFLEX MICROSCOPIC (03/02/2025 12:35 PM CDT) COLOR UA Yellow Pale to Dark Yellow 03/02/2025 12:52 PM CDT [facility] CLARITY UA Clear Clear 03/02/2025 12:52 PM CDT [facility] SPECIFIC GRAVITY UA 1.015 1.003 - 1.035 03/02/2025 12:52 PM T [facility] PH UA 6.5 5.0 - 8.0 03/02/2025 12:52 PM CDT [facility] LEUKOCYTE ESTERASE UA Negative Negative 03/02/2025 12:52 PM CDT [facility] NITRITE UA Negative Negative 03/02/2025 12:52 PM CDT [facility] PROTEIN UA Negative Negative 03/02/2025 12:52 PM CDT [facility] GLUCOSE UA Negative Negative 03/02/2025 12:52 PM CDT [facility] KETONES UA Negative Negative 03/02/2025 12:52 PM CDT [facility] UROBILINOGEN UA 0.2 <2.0 mg/dL 12:52 PM CDT [facility] BILIRUBIN UA Negative Negative 03/02/2025 12:52 PM CDT [facility] BLOOD UA Negative Negative 03/02/2025 12:52 PM CDT [facility] Urine URINE SPECIMEN OBTAINED BY CLEAN CATCH PROCEDURE / Unknown Collection / Unknown 03/02/2025 12:35 PM CDT 03/02/2025 12:45 PM CDT us Ulises Rodriguez MD URINE ORDERABLES Final Result [facility] CLIA # [id number] [address] [place] [address] [id number] * PTT (03/02/2025 12:35 PM CDT) PTT 28.5 25.8 - 34.0 seconds 03/02/2025 1:19 PM CDT [facility] Blood Venipuncture / Unknown 03/02/2025 12:35 PM CDT 03/02/2025 12:42 PM CDT us Ulises Rodriguez MD HEMATOLOGY ORDERABLES Final Res ult [facility] CLIA # [id number] [address] [place] [address] 88880 * (ABNORMAL) SEDIMENTATION RATE (03/02/2025 12:35 PM CDT) ESR (SEDIMENTATION RATE) 21(H) 0 - 20 mm/Hr 03/02/2025 12:53 PM CDT [facility] Blood Venipuncture / Unknown 03/02/2025 12:35 PM CDT 03/02/2025 12:42 PM CDT Narrative [facility] - 03/02/2025 12:53 PM CDT Tube Lot: #[id number] Exp Date: 08/19/2026 SR 0125-1 EXP. 05/24/25 SR 0125-2 EXP. 05/24/25 Ulises Rodriguez MD HEMATOLOGY ORDERABLES Final Res ult Performing Organization Address City/[facility]/ZIP Co de Phone Number [facility] CLIA # [id number] [address] [place] [address] [id number] * PROTIME-INR (03/02/2025 12:35 PM CDT) PROTIME 13.2 11.9 - 14.6 Seconds 03/02/2025 1:19 PM CDT [facility] INR 1.0 0.9 - 1.1 03/02/2025 1:19 PM CDT [facility] Blood Venipuncture / Unknown 03/02/2025 12:35 PM CDT 03/02/2025 12:42 PM CDT us Ulises Rodriguez MD HEMATOLOGY ORDERABLES Final Res ult [facility] CLIA # [id number] [address] [place] [address] 67091 * D-DIMER (03/02/2025 12:35 PM CDT) D-DIMER QUANT 0.23 <0.50 ug/mL FEU 03/02/2025 1:09 PM CDT [facility] Blood Venipuncture / Unknown 03/02/2025 12:35 PM CDT 03/02/2025 12:42 PM CDT Narrative [facility] - 03/02/2025 1:09 PM CDT D-Dimer assay cutoff value for exclusion of DVT and/or PE is <0.50 ug/mL FEU. As D-Dimer levels increase naturally with age, age stratification for patients over 50 is potentially more appropriate in determining whether a patient should undergo further evaluation for DVT and/or PE than a general cutoff of 0.50 ug/mL FEU. Clinical consideration is recommended. Age Stratified Cutoff Values: 50-60 years: 0.50-0.60 ug/mL FEU 61-70 years: 0.61-0.70 ug/mL FEU 71-80 years: 0.71-0.80 ug/mL FEU us Ulises Rodriguez MD HEMATOLOGY ORDERABLES Final Res ult Performing Organization Address [facility] Co de Phone Number [facility] CLIA # [id number] [address] [place] [phone] * C-REACTIVE PROTEIN (03/02/2025 12:35 PM CDT) CRP <3.0 <5.0 mg/L 03/02/2025 1:1 5 PM CDT [facility] Blood Venipuncture / Unknown 03/02/2025 12:35 PM CDT 03/02/2025 12:42 PM CDT us Ulises Rodriguez MD CHEMISTRY ORDERABLES Final Resu lt Performing Organization Address City/[facility]/ZIP Co de Phone Number [facility] CLIA # [id number] [address] [place] [phone] * TSH (03/02/2025 12:35 PM CDT) TSH 0.88 0.27 - 4.20 uIU/mL 03/02/2025 1:15 PM CDT [facility] Blood Venipuncture / Unknown 03/02/2025 12:35 PM CDT 03/02/2025 12:42 PM CDT Ulises Rodriguez MD CHEMISTRY ORDERABLES Final Resu lt [facility] CLIA # [id number] [address] [place] [address] [phone] * (ABNORMAL) BRAIN NATRIURETIC PEPTIDE, BNP OR PROBNP (03/02/2025 12:35 PM CDT) PROBNP, N TERMINAL 215(H) 0 - 125 pg/mL 03/02/2025 1:15 PM CDT [facility] Comment: INTERPRETIVE COMMENT based on diagnosis: Diagnostic NT pro-BNP cutoffs for Heart Failure in the absence of renal failure is suggested for the following ranges <75 years: <125 pg/mL >=75 years: <450 pg/mL Exclusionary rule out cut-point for Acute Decompensated Heart Failure(ADHF) All ages: <300 pg/mL Diagnostic NT pro-BNP cutoffs for Acute Decompensated Heart Failure(ADHF) in the absence of renal failure is suggested for the following ages <50 years: > 450 pg/mL 50-75 years: > 900 pg/mL >75 years: >1800 pg/mL Blood Venipuncture / Unknown 03/02/2025 12:35 PM CDT 03/02/2025 12:42 PM CDT us Ulises Rodriguez MD CHEMISTRY ORDERABLES Final Resu lt [facility] CLIA # [id number] [address] [place] [address] [phone] * MAGNESIUM LEVEL (03/02/2025 12:35 PM CDT) MAGNESIUM 2.1 1.6 - 2.6 mg/dL 03/02/2025 1:15 PM CDT [facility] Blood Venipuncture / Unknown 03/02/2025 12:35 PM CDT 03/02/2025 12:42 PM CDT us Ulises Rodriguez MD CHEMISTRY ORDERABLES Final Resu lt [facility] # [id number] [address] [place] [address] [phone] * (ABNORMAL) COMPREHENSIVE METABOLIC PANEL (03/02/2025 12:35 PM CDT) SODIUM 140 136 - 145 mmol/L 03/02/2025 1:15 PM T [facility] POTASSIUM 4.3 3.5 - 5.1 mmol/L 03/02/2025 1:15 PM [facility] CHLORIDE 103 98 - 107 mmol/L 03/02/2025 1:15 PM [facility] CO2 27 22 - 29 mmol/L 03/02/2025 1:15 PM [facility] CALCIUM 10.6(H) 8.6 - 10.0 mg/dL 03/02/2025 1:15 PM [facility] BUN 14 6 - 20 mg/dL 03/02/2025 1:15 PM [facility] CREATININE 0.87 0.67 - 1.17 mg/dL 03/02/2025 1:15 PM [facility] GLUCOSE 105(H) 74 - 99 mg/dL 03/02/2025 1:15 PM [facility] TOTAL PROTEIN 8.0 6.6 - 8.7 g/dL 03/02/2025 1:15 PM [facility] ALBUMIN 4.2 4.0 - 4.9 g/dL 03/02/2025 1:15 PM [facility] BILIRUBIN TOTAL 0.6 <=1.2 mg/dL 03/02/2025 1:15 PM [facility] ALKALINE PHOSPHATASE 72 40 - 129 U/L 03/02/2025 1:15 PM [facility] AST 24 0 - 50 U/L 03/02/2025 1:15 PM [facility] ALT 18 0 - 50 U/L 03/02/2025 1:15 PM CDT [facility] GFR >60 >=60 mL/min/1.7 3 sq meter 03/02/2025 1:15 PM CDT [facility] Comment:eGFR calculated with 2020 CKD-EPI equation. Vegetarian diet, extremely high or low muscle mass, and may affect results. Cystatin C with Glomerular Filtration Rate is a suitable alternative for these patients. ANION GAP 10 5 - 20 mmol/L 03/02/2025 1:15 PM CDT [facility] Blood Venipuncture / Unknown 03/02/2025 12:35 PM CDT 03/02/2025 12:42 PM CDT us Ulises Rodriguez MD CHEMISTRY ORDERABLES Final Resu lt [facility] CLIA # [id number] [address] [place], [place] [id number] from Last 3 Months Insurance [facility] [employer]
--- OUTSIDE RECORDS SUMMARY | 2025-05-05 06:29 | XMS_ITS | Encounter Summary ---
Author Organization [employer] Address [address] [place] [address] Care Team Providers Care Motor Analyst Name Role Phone Unavailable Primary Care Provider Unavailabl e Encounter Details Date Type Department Care Team (Late st Contact Info) Description 04/29/2025 External Device Data [facility] ABSTRACTION Provider, Abstract NO ADDRESS ON FILE Social History Tobacco Use Types Packs/Day Years Used Date Smoking Tobacco: Never Smokeless Tobacco: Never Alcohol Use Standard Drinks/Week Comments Never 0 [...] on file Sexual Orientation Not on file documented as of this encounter Plan of Treatment Not on file documented as of this encounter Visit Diagnoses Not on filedocumented in this encounter
--- OUTSIDE RECORDS SUMMARY | 2025-05-05 06:29 | XMS_ITS | Encounter Summary ---
Author Organization [employer] Address [address] [place] [address] Care Team Providers Care Portable Pinch Riveter Name Role Phone Unavailable Primary Care Provider [...]
[2025-05-05] MEDS: FUROsemide 40 mg Tablet PO (08:11)
[2025-05-05] MEDS: potassium chloride ER 20 mEq Tablet PO (08:11)
[2025-05-05] MEDS: amiodarone 200 mg Tablet PO ×2 (08:11→18:00)
[2025-05-05] MEDS: aspirin 81 mg EC Tablet PO (08:11)
[2025-05-05 08:51] LABS: Partial Thromboplastin Time 47.8 SECONDS (23.9-36.7)
[2025-05-05 10:06] LABS: Basophils # 0.1 10^3/uL (0.0-0.1); Basophils % 0.7 %; Eosinophils # 0.4 10^3/uL (0.0-0.8); Eosinophils % 2.3 %; Hematocrit 31.1 % (37-53); Lymphocytes # 2.4 10^3/uL (0.8-4.8); Lymphocytes % 13.3 %; Mean Corpuscular HGB Conc 30.9 g/dL (30-55); Mean Corpuscular Hemoglobin 27.8 pg (27-33); Mean Corpuscular Volume 90.1 fl (82-101); Mean Platelet Volume 9.8 fL (7.4-10.4); Monocytes # 2.5 10^3/uL (0.2-0.9); Monocytes % 14.1 %; Neutrophils # 11.97 10^3/uL (1.8-7.7); Neutrophils % 67.7 %; Nucleated Red Blood Cells % 0 %; Platelet Count 378 10^3/cmm (157-399); Red Blood Count 3.45 10^6/uL (3.85-5.65); Red Cell Distribution Width 13.8 % (12.1-15.1); White Blood Count 17.66 10^3/uL (3.29-11.43)
[2025-05-05 10:42] LABS: Procalcitonin 0.07 ng/mL (0-0.5)
[2025-05-05] MEDS: cefTRIAXone 1,000 mg SDV 1000 MG IVP (11:54)
[2025-05-05] MEDS: AZITHROMYCIN ADD-Vantage 500 MG in 0.9% NaCl ADD-Vantage 250 ML 250 MG IV (11:55)
--- NOTE | 2025-05-05 12:01 | PM.PN ---
Vitals/I&O/Wt Last Vital Signs Temp 99.0 F 05/05/25 08:00 Pulse 78 05/05/25 08:00 Resp 16 05/05/25 08:00 BP 145/72 05/05/25 08:00 Pulse Ox 96 05/05/25 08:00 O2 Del Method CPAP 05/05/25 08:00 05/04/25 05/05/25 05/05/25 22:59 06:59 14:59 Intake Total 0 / 0 594.417 / 594.417 Output Total 1140 / 1140 Balance 0 / 0 -545.583 / -545.583 Weight last 48 hrs Weight 102.33 kg Weight 100.834 kg Weight 106.594 kg Weight 106.594 kg Physical Exam Const: COMMON NORMALS: no acute distress and patient oriented x3 HENMT: OTHER: Left facial droop Left upper extremity strength 2 out of 5 compared to 5 out of 5 on the right Clumsy left hand Left lower extremity strength equal bilaterally Slight slurring of words Eye: COMMON NORMALS: Equal, round and reactive pupils present and EOMs intact bilaterally PUPIL: Yes Equal, round and reactive pupils present Resp: COMMON NORMALS: normal respiratory effort, No retractions, No use of accessory muscles and clear to auscultation bilaterally AUSCULTATION: clear to auscultation bilaterally Cardio: COMMON NORMALS: regular rate, regular rhythm, S1 normal heart sound present and S2 normal heart sound present RATE: regular rate RHYTHM: regular rhythm HEART SOUNDS: S1 normal heart sound present and S2 normal heart sound present GI: COMMON NORMALS: Normal to inspection, nondistended, normoactive bowel sounds present and non-tender Extremity: COMMON NORMALS: no pedal edema Neuro: COMMON NORMALS: patient oriented x3 Psych: COMMON NORMALS: mental status grossly normal Skin: NARRATIVE SKIN EXAM: Sternotomy site looks clean and dry, healing well Left arm surgical site, looks clean and dry, healing well Data 05/05/25 09:46 05/04/25 21:53 A&P Assessment and plan (1) Cerebrovascular accident: (2) Valvular heart disease: (3) Atrial fibrillation: (4) Sleep apnea: (5) ADHD (attention deficit hyperactivity disorder): (6) History of coronary artery bypass graft x 1: Continue enteric-coated aspirin 81 mg daily (7) History of aortic valve replacement: Plan Acute cerebrovascular accident - Left facial droop, left hand clumsiness, left upper extremity weakness Head CT - CT/CT head thrombolytic [id number] IMPRESSION: No acute intracranial abnormality. CTA head and neck CT/CT angio headneck* [id number] IMPRESSION: No large vessel stenosis or occlusion. IMPRESSION: 1. No large vessel stenosis or occlusion. 2. Multinodular thyroid gland. 3. Incompletely imaged retrosternal fluid likely related to recent sternotomy. Clinical correlation advised. - MRI brain pending -Not considered Plan - PT OT - Speech therapy eval - Aspirin 81 mg - Atorvastatin 80 mg - Patient is currently on heparin drip, will hold for now, follow a head MRI, consider starting anticoagulant therapy 72 hours from stroke onset -Permissive hypertension, treat if systolic blood pressure greater than 220 or diastolic greater than 120 - Full code - Lovenox for DVT prophylaxis History of atrial fibrillation - Patient reports that during his hospitalization for his aortic valve replacement/CABG x 1, he developed atrial fibrillation during his hospitalization but he converted back to normal sinus rhythm, was recently discharged on Saturday, May 03, 2025 - Continue amiodarone - Will hold metoprolol for now allow for permissive hypertension - Start anticoagulant therapy within 72 hours History of aortic valve replacement - Recently at [place] History of CABG x 1 - Recently at [place] Pneumonia -With recent history of hospitalization at [place] for CABG/aortic valve replacement -Seen on chest x-ray - With leukocytosis - Elevated CRP Plan - Continue Rocephin - Continue Zithromycin History of Full code Lovenox for DVT prophylaxis PDMP PDMP Reviewed: Not Reviewed Attestations Medical Necessity Statement*: Patient requires hospitalization for acute CVA, pneumonia Diagnoses Cerebrovascular accident I63.9 Valvular heart disease I38 Atrial fibrillation I48.91 Sleep apnea G47.30 ADHD (attention deficit hyperactivity disorder) F90.9 History of coronary artery bypass graft x 1 Z95.1 History of aortic valve replacement Z95.2
--- NOTE | 2025-05-05 15:32 | PC.NURSE ---
per Dr Conner, stop LR after 2000ml. No further orders given for fluids.
--- NOTE | 2025-05-05 16:17 | PC.NURSE ---
project development coordinator rounds at 1500- gave patient stroke education book
--- NOTE | 2025-05-05 17:42 | PC.NURSE ---
patient reported that he had seen flashes of light and stars in his left eye. Dr Conner was notified. No further orders given, nurse instructed to keep an eye on him. Patient did not lose vision in the eye.
[2025-05-05] MEDS: atorvastatin 40 mg Tablet 80 MG PO (20:51)
[2025-05-06] VITALS: BP 121/75; BP 99/67; PULSE 74; PULSE 79; RESP 16; RESP 18; TEMP 36.8; TEMP 37; O2SAT 96
[2025-05-06 04:00] VITALS: BP 114/62; BP 121/75; PULSE 76; PULSE 79; RESP 16; RESP 18; TEMP 37; TEMP 37.1; O2SAT 95
[2025-05-06 04:52] LABS: Basophils # 0.1 10^3/uL (0.0-0.1); Basophils % 0.6 %; Eosinophils # 0.5 10^3/uL (0.0-0.8); Hematocrit 31.9 % (37-53); Lymphocytes # 2.7 10^3/uL (0.8-4.8); Lymphocytes % 15.6 %; Mean Corpuscular Hemoglobin 27.7 pg (27-33); Mean Corpuscular Volume 89.1 fl (82-101); Mean Platelet Volume 9.6 fL (7.4-10.4); Monocytes # 2.6 10^3/uL (0.2-0.9); Monocytes % 14.8 %; Neutrophils # 11.16 10^3/uL (1.8-7.7); Neutrophils % 64.4 %; Nucleated Red Blood Cells % 0 %; Platelet Count 457 10^3/cmm (157-399); Red Blood Count 3.58 10^6/uL (3.85-5.65); Red Cell Distribution Width 13.6 % (12.1-15.1); White Blood Count 17.34 10^3/uL (3.29-11.43)
[2025-05-06 05:11] LABS: Alanine Aminotransferase 20 U/L (0-41); Albumin Level 3.4 g/dL (3.5-5.2); Alkaline Phosphatase 75 U/L (40-130); Anion Gap 16.3 (5-19); Aspartate Amino Transferase 20 U/L (0-40); Blood Urea Nitrogen 19 mg/dL (6-20); Calcium 9.6 mg/dL (8.5-10.5); Carbon Dioxide 24 mmol/L (22-29); Chloride 102 mmol/L (98-107); Globulin 4.5 g/dL (1.3-4.6); Glucose 108 mg/dL (65-115); Osmolality Calculated 289 mOsm/kg (285-295); Potassium 4.3 mmol/L (3.5-5.1); Sodium 138 mmol/L (136-145); Total Protein 7.9 g/dL (6.6-8.7)
[2025-05-06 05:41] LABS: Total Bilirubin 0.4 mg/dL (0.15-1.2)
[2025-05-06 05:48] VITALS: PULSE 79
[2025-05-06] MEDS: enoxaparin 40 mg/0.4 mL Syringe SUBCUT (05:59)
[2025-05-06 07:25] VITALS: BP 137/76; PULSE 75; RESP 21; TEMP 37; O2SAT 97
[2025-05-06] MEDS: aspirin 81 mg EC Tablet PO (07:55)
[2025-05-06] MEDS: FUROsemide 40 mg Tablet PO (07:55)
[2025-05-06] MEDS: amiodarone 200 mg Tablet PO (07:55)
[2025-05-06] MEDS: potassium chloride ER 20 mEq Tablet PO (07:55)
--- NOTE | 2025-05-06 09:31 | PC.NURSE ---
sourcing coordinator rounds at 0800- patient up at the bathroom sink independently doing ADLs, pt states he is hopeful to go home soon.
--- NOTE | 2025-05-06 09:32 | PC.CHAP ---
Pastoral Care Encounter/Spiritual Assessment Type of Contact [] Declined tours hostess visit [] Patient/Family/Request visit [] Outpatient visit [] Follow-up visit [] Physician referral [] Code/Alert [x] Routine visit [] Staff referral [] Actively dying [] Patient sleeping [] Family support [] [] Out of room [] Palliative care [] [] Receiving care in room [] Pre-surgical visit [] Trauma [] Long length of stay [] ICU visit [] Other: Relational/Emotional Strength [x] Patient feels connected with others/family/visitors/staff [] Distress [] Loneliness/isolation [] Abandonment Spirituality of Patient [x] Person of Jessica [] Attends Evangelical of their Jessica [] Believes in Prayer [x] Reads Bible or Buddhism materials [] There are Spiritual issues to be addressed 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 Interventions [x] Prayer [x] Active listening [] Non-anxious presence [x] Spiritual/emotional support [] Crisis/trauma care [] Spiritual counseling [] Bereavement support [] Provided bereavement packet [] Provided Bible/devotional materials [] Provided toy/stuffed animal, coloring book to patient or family member [] Provided Communion [] Anointing/[place] [] Salvation [x] Completed spiritual assessment [] Other: Impact on Illness or Injury [] Angry [] Fearful [] Anxious [] Often cries [] Exhaustion [] Unable to work [] Unable to attend gnosticist [] Unable to walk/stand [] Unable to read [] Unable to drive [] Unable to eat/drink [] Unable to sleep [] Unable to be with family [] Patient intubated [] Other: Summary Time spent with patient 5 min
--- NOTE | 2025-05-06 12:30 | P.DS_ITS ---
Discharge Providers Date of Admission: 05/05/25 02:35 Date of Discharge: May 06, 2025 Attending Provider at Admission: Richard Felix MD Attending Provider at Discharge: Darrian Conner MD Primary Care Provider: MORRO Ott Diagnoses at Discharge Discharge Diagnosis (1) Cerebrovascular accident: Status: Acute (2) Valvular heart disease: Status: Acute (3) Atrial fibrillation: Status: Acute (4) Sleep apnea: Status: Acute (5) ADHD (attention deficit hyperactivity disorder): Status: Acute (6) History of coronary artery bypass graft x 1: Status: Acute (7) History of aortic valve replacement: Status: Acute Reason for Visit Reason for Visit: Stroke Alert Hospital Course Hospital Course This is a 59-year-old male with a past medical history of CABG x 1, with aortic valve replacement, recent history of atrial fibrillation, not on anticoagulant therapy, history of Hodgkin's lymphoma, who presents [facility] due to left arm weakness, left facial droop, dysarthria Patient was admitted to [facility] for acute CVA, symptom onset was 8:15 PM 05/05/2025, evaluated by [facility] neurology, was not deemed a TNKase candidate due to recent history of open heart surgery, patient was monitored as inpatient, received medical management, permissive hypertension, PT OT, speech therapy eval Head CT no acute intracranial abnormality CTA head and neck CT/CT angio headneck* [id number] IMPRESSION: No large vessel stenosis or occlusion. IMPRESSION: 1. No large vessel stenosis or occlusion. 2. Multinodular thyroid gland. 3. Incompletely imaged retrosternal fluid likely related to recent sternotomy. Clinical correlation advised. MR/MR head wo con* [id number] IMPRESSION: 1. Acute bilateral supratentorial infarcts. Greater distribution of scattered acute infarcts involving the RIGHT supratentorial brain, RIGHT frontal and parietal lobes. Few additional scattered acute infarcts in the LEFT centrum semiovale. Due to bilateral acute infarcts consider embolic source. 2. Otherwise mild chronic small vessel ischemic changes. 3. No hydrocephalus. 4. Tiny focus of hemosiderin LEFT occipital lobe. 5. RIGHT maxillary sinusitis. - Patient was monitored as inpatient - Ambulating without significant lower extremity weakness, he did have positive cerebellar signs on the left, but ambulating without any significant assistance - He continues to have a clumsy left hand although the coordination and strength is improving - Continues to have a slight left facial droop, slight slurring of his words, no word finding difficulty, no word salad - No dysphagia, no odynophagia, no choking or coughing - Will discharge with outpatient speech therapy eval - Discharged with home health care for home PT - Continue aspirin, statin - Discharged on Eliquis 5 mg p.o. twice daily to be started tomorrow - Discharge with event monitor in place - Discharge with close follow-up with cardiology as outpatient In terms of patient's atrial fibrillation - Patient tells me that he has hospitalization at [facility] after his CABG/aortic valve patient was complicated by A-fib, he was hospitalized an extra few days for this, but eventually converted back to normal sinus rhythm, but was not sent home on anticoagulant therapy - He just got home from the hospital on Monday - We discussed the risks and benefits of anticoagulant therapy - Given his MRI findings, his risk factors, we discussed the risk and benefits of anticoagulant therapy - Patient voiced understanding, all questions answered, agreed to proceed - Will start anticoagulant therapy in 72 hours, discussed with him to start Eliquis tomorrow - Discussed with patient that Eliquis is a blood thinner, if he develops bloody or black stools to immediately go to the emergency room, and have his primary care provider recheck his hemoglobin in 1 week Patient also briefly described flashing lights out of his left eye during his hospitalization -Lasted a few seconds - No repeat episodes -No eye pain, no conjunctival injection, no nausea, no vomiting -Visual field testing was within normal limits - Pupils equal round reactive to light - Extraocular movements intact - Patient does report a history of glaucoma, he takes eyedrops for slightly elevated eye pressure, discussed with patient to resume his eyedrops, follow-up with Dr. De La O later on this week - If he does develop photopsia please come back to emergency room For patient's multinodular thyroid gland, please follow-up with primary care pro vider for thyroid ultrasound For history of aortic valve replacement, CABG x 1, - Will have patient follow-up with [facility] - I also reached out to patient's CT surgeon at [place], I have left a message with her nurse There was a concern for pneumonia during his hospitalization, with leukocytosis - Remains afebrile - On room air - Will discharge on Levaquin, and Zyvox given recent hospitalization at [facility] - If any fevers or chills, or cough or shortness of breath please go to emergency room Physical Exam Const: COMMON NORMALS: no acute distress and patient oriented x3 Eye: COMMON NORMALS: Equal, round and reactive pupils present, EOMs intact bilaterally, conjunctivae normal, no scleral icterus and normal visual castelan by confrontation CONJUNCTIVA: Yes conjunctivae normal PUPIL: Yes Equal, round and reactive pupils present Resp: COMMON NORMALS: normal respiratory effort, No retractions, No use of accessory muscles and clear to auscultation bilaterally AUSCULTATION: clear to auscultation bilaterally Cardio: COMMON NORMALS: regular rate, regular rhythm, S1 normal heart sound present and S2 normal heart sound present RATE: regular rate RHYTHM: regular rhythm HEART SOUNDS: S1 normal heart sound present and S2 normal heart sound present GI: COMMON NORMALS: Normal to inspection, nondistended, normoactive bowel sounds present and non-tender Extremity: COMMON NORMALS: no pedal edema Neuro: COMMON NORMALS: patient oriented x3, CN's II-XII intact bilaterally and moves all extremities OTHER: Slight left facial droop Slight slurring of words Left upper extremity strength improving, but diminished compared to right, strength 3 out of 5, coordination improving clumsy left hand Slight positive cerebellar signs on the left, [id number], No dysphagia Psych: COMMON NORMALS: mental status grossly normal Discharge Data Studies Completed and Pending Completed Studies During Hospitalization Category Date Time Status CT angio headneck* [id number] Stat Cat Scan 05/04/25 21:[address] head thrombolytic [id number] Stat Cat Scan 05/04/25 21:35 Completed XR chest 1V portable [id number] Stat Exams 05/04/25 21:45 Completed MR head wo con* [id number] Routine MRI 05/05/25 02:40 Completed CV. echo complete* [id number] Routine Ultrasound 05/05/25 02:40 Completed Pending at discharge Category Date Time Status Complete Blood Count w/Auto AM LABS Lab 05/07/25 04:00 Ordered Complete Blood Count w/Auto AM LABS Lab 05/08/25 04:00 Ordered Comprehensive Metabolic Panel AM LABS Lab 05/07/25 04:00 Ordered Comprehensive Metabolic Panel AM LABS Lab 05/08/25 04:00 Ordered Platelet Count Q2D Lab 05/07/25 04:00 Ordered Platelet Count Q2D Lab 05/09/25 04:00 Ordered Sputum Culture and Gram Stain Stat Lab 05/05/25 12:18 Uncollected Radiology Impressions Head/Neck CTA 05/04/25 21:34 IMPRESSION: No large vessel stenosis or occlusion. IMPRESSION: 1. No large vessel stenosis or occlusion. 2. Multinodular thyroid gland. 3. Incompletely imaged retrosternal fluid likely related to recent sternotomy. Clinical correlation advised. COMMENTS: Consistent with the [place] [employer]'s Incidental Findings Committee white paper (J Am Alexandra Radiol 2015): In patients aged 35 years and older with an incidental thyroid nodule equal to or greater than 1.[address], MRI or extrathyroidal US, further evaluation with dedicated thyroid US is recommended for patients with normal life expectancy and without comorbidities. For smaller nodules without suspicious features, no further evaluation or follow up is recommended. REFERENCES: NASCET CRITERIA. The degree of stenosis in the cervical segment of the internal carotid artery is based on NASCET criteria. Normal is no stenosis. Mild is less than 50% stenosis. Moderate is 50-69% stenosis. Severe is 70% to 99% stenosis. Total occlusion is no detectable patent lumen. ADDENDUM: 05/04/25 [id number] COMMENT: THIS REPORT CONTAINS FINDINGS THAT MAY BE CRITICAL TO PATIENT CARE. The exam findings were verbally communicated by me to MANJIT VERA via telephone conference at 10:31 PM CDT on 05/04/2025. The findings were acknowledged and understood. Head CT 05/04/25 21:35 IMPRESSION: No acute intracranial abnormality. ASSESSMENT: ASPECTS ([place] Stroke Program Early CT Score) is 10. ADDENDUM: 05/04/25 [id number] COMMENT: THIS REPORT CONTAINS FINDINGS THAT MAY BE CRITICAL TO PATIENT CARE. The exam findings were verbally communicated by me to MANJIT VERA via telephone conference at 9:58 PM CDT on 05/04/2025. The findings were acknowledged and understood. Chest X-Ray 05/04/25 21:45 IMPRESSION: Small bilateral pleural effusions associated with underlying patchy airspace disease which may reflect subsegmental atelectasis, edema or pneumonitis. Head MRI 05/05/25 02:40 IMPRESSION: 1. Acute bilateral supratentorial infarcts. Greater distribution of scattered acute infarcts involving the RIGHT supratentorial brain, RIGHT frontal and parietal lobes. Few additional scattered acute infarcts in the LEFT centrum semiovale. Due to bilateral acute infarcts consider embolic source. 2. Otherwise mild chronic small vessel ischemic changes. 3. No hydrocephalus. 4. Tiny focus of hemosiderin LEFT occipital lobe. 5. RIGHT maxillary sinusitis. Notified Richard Felix MD at 05/06/2025 10:19 AM. Laboratory Results WBC 17.34 10^3/uL (3.29-11.43) H 05/06/25 04:27 RBC 3.58 10^6/uL (3.85-5.65) L 05/06/25 04:27 Hgb 9.90 g/dL (11.27-16.99) L 05/06/25 04:27 Hct 31.9 % (37-53) L 05/06/25 04:27 MCV 89.1 fl (82-101) 05/06/25 04:27 MCH 27.7 pg (27-33) 05/06/25 04:27 MCHC 31.0 g/dL (30-55) 05/06/25 04:27 RDW 13.6 % (12.1-15.1) 05/06/25 04:27 Plt Count 457 10^3/cmm (157-399) H 05/06/25 04:27 MPV 9.6 fL (7.4-10.4) 05/06/25 04:27 Neut % (Auto) 64.4 % 05/06/25 04:27 Lymph % (Auto) 15.6 % 05/06/25 04:27 [place] % (Auto) 14.8 % 05/06/25 04:27 Eos % (Auto) 3.0 % 05/06/25 04:27 Baso % (Auto) 0.6 % 05/06/25 04:27 Neut # (Auto) 11.16 10^3/uL (1.8-7.7) H 05/06/25 04:27 Lymph # (Auto) 2.7 10^3/uL (0.8-4.8) 05/06/25 04:27 [place] # (Auto) 2.6 10^3/uL (0.2-0.9) H 05/06/25 04:27 Eos # (Auto) 0.5 10^3/uL (0.0-0.8) 05/06/25 04:27 Baso # (Auto) 0.1 10^3/uL (0.0-0.1) 05/06/25 04:27 Nucleated RBC % (auto) 0 % 05/06/25 04:27 Nucleated RBCs # 0.0 /100WBC 05/06/25 04:27 PT 15.20 SECONDS (12.1-14.9) H 05/04/25 21:53 INR 1.13 (0.8-1.2) 05/04/25 21:53 APTT 47.8 SECONDS (23.9-36.7) H D 05/05/25 08:06 Sodium 138 mmol/L (136-145) 05/06/25 04:27 Potassium 4.3 mmol/L (3.5-5.1) 05/06/25 04:27 Chloride 102 mmol/L (98-107) 05/06/25 04:27 Carbon Dioxide 24 mmol/L (22-29) 05/06/25 04:27 Anion Gap 16.3 (5-19) 05/06/25 04:27 BUN 19 mg/dL (6-20) 05/06/25 04:27 Creatinine 1.0 mg/dL (0.7-1.2) 05/06/25 04:27 GFR Calculation 77.0 mL/min (90-130) L 05/06/25 04:27 Glucose 108 mg/dL (65-115) 05/06/25 04:27 Calculated Osmolality 289 mOsm/kg (285-295) 05/06/25 04:27 Calcium 9.6 mg/dL (8.5-10.5) 05/06/25 04:27 Total Bilirubin 0.4 mg/dL (0.15-1.2) 05/06/25 04:27 AST 20 U/L (0-40) 05/06/25 04:27 ALT 20 U/L (0-41) 05/06/25 04:27 Alkaline Phosphatase 75 U/L (40-130) 05/06/25 04:27 C-Reactive Protein 46.0 mg/L (0.0-4.9) H 05/05/25 09:46 Total Protein 7.9 g/dL (6.6-8.7) 05/06/25 04:27 Albumin 3.4 g/dL (3.5-5.2) L 05/06/25 04:27 Globulin 4.5 g/dL (1.3-4.6) 05/06/25 04:27 Procalcitonin 0.07 ng/mL (0-0.5) 05/05/25 09:46 Urine Color Yellow (Yellow) 05/04/25 23:30 Urine Appearance Clear (CLEAR) 05/04/25 23: Urine pH 5.5 (5-7) 05/04/25 23:30 Ur Specific [place] 1.042 (1.005-1.030) H 05/04/25 23:30 Urine Protein Negative (Negative) 05/04/25 23:30 Urine Glucose (UA) Negative (Normal) 05/04/25 23:30 Urine Ketones Negative (Negative) 05/04/25 23:30 Urine Blood 1+ (Negative) A 05/04/25 23:30 Urine Nitrate Negative (Negative) 05/04/25 23: Urine Bilirubin Negative (Negative) 05/04/25 23:30 Urine Urobilinogen 1.0 mg/dL (Negative) 05/04/25 23:30 Ur Leukocyte Esterase Negative (Negative) 05/04/25 23:30 Urine RBC 0-2 /hpf (0-2) 05/04/25 23:30 Urine WBC 0-5 /hpf (0-5) 05/04/25 23:30 Ur Squamous Epith Cells 0-5 /hpf (0-5) 05/04/25 23:30 Amorphous Sediment Not Reportable 05/04/25 23:30 Urine Bacteria None seen /hpf (NONE) 05/04/25 23:30 Hyaline Casts 0.40 /lpf 05/04/25 23:30 Urine Opiates Screen Negative ng/mL (Negative) 05/04/25 23:30 Ur Barbiturates Screen Negative ng/mL (Negative) 05/04/25 23:30 Ur Phencyclidine Scrn Negative ng/mL (Negative) 05/04/25 23:30 Ur Amphetamines Screen Negative ng/mL (Negative) 05/04/25 23:30 U Benzodiazepines Scrn Negative ng/mL (Negative) 05/04/25 23:30 Urine Cocaine Screen Negative ng/mL (Negative) 05/04/25 23:30 U Marijuana (THC) Screen Negative ng/mL (Negative) 05/04/25 23:30 Vitals Last Vital Signs Temp 98.6 F 05/06/25 07:25 Pulse 75 05/06/25 07:25 Resp 21 H 05/06/25 07:25 BP 137/76 05/06/25 07:25 Pulse Ox 97 05/06/25 07:25 O2 Del Method Room Air 05/06/25 04:00 Discharge Plan Discharge Patient Disposition: Home Condition: Stable Prescriptions: New Eliquis 5 mg tablet 5 mg PO BID 30 Days Qty: 60 0RF Rx Instructions: start 05/07/2025 levofloxacin 750 mg tablet 750 mg PO DAILY 5 Days Qty: 5 0RF linezolid [Zyvox] 600 mg tablet 600 mg PO BID 5 Days Qty: 10 0RF Continued nitroglycerin 0.4 mg tablet, sublingual 0.4 mg sublingual Q5M PRN (Reason: chest pain) Qty: 30 3RF Rx Instructions: do not exceed 3 doses per episode furosemide 40 mg Tablet 40 mg PO DAILY atorvastatin 80 mg Tablet 80 mg PO BEDTIME amiodarone 200 mg Tablet 200 mg PO BID aspirin 81 mg Tablet,Delayed Release (Dr/Ec) 81 mg PO DAILY metoprolol tartrate 25 mg Tablet 25 mg PO BID oxycodone 5 mg Tablet, Oral Only 2.5 mg PO Q4H PRN (Reason: Pain) potassium chloride 20 mEq Tablet Extended Release 40 meq PO DAILY Discharge Orders: Discharge Order (Routine); Ordered 05/06/25 Ordered By: Darrian Conner Other Ambulatory Orders: Speech Language Pathology Eval and Treat Outpatient (Order) Timeframe: 1 Day Facility: [facility] - Location: OT & RADIOLOGY ADMINISTRATOR [facility] Ordered By: Darrian Conner MCT/Event Monitor 30 Days (Routine) Timeframe: 1 Day Facility: [facility] - Location: Radiology Ordered By: Darrian Conner Referrals: [facility] [Outside] - 05/08/25 2:00 pm Jyotsna Mckeon MD [Physician, Neurology] - 2 weeks Referral Note: We have notified your physician's clinic of the need for a fol low-up appointment to be scheduled. If you have not heard from them within the next 2 business days, please call them directly. Brandie Patel FNP [Nurse Practitioner, Cardiology] - 05/19/25 2:00 pm Chelsea Quintana FNP [Primary Care Provider, Nurse Practitioner] - 05/12/25 9:30 am Discharge Diet: Cardiac Discharge Activity: Resume usual activity Patient Instructions: Atrial Fibrillation, Levofloxacin (By mouth), Apixaban (By mouth), A-fib (Atrial Fibrillation) (DC), Sleep Apnea (GEN), ADHD in Adults (DC), Self Care Measures After a Stroke (DC), Level 1 National Dysphagia Diet (DC), Stroke (DC), Opioid Safety Activity Restrictions/Additional Instructions: - For your acute CVA -If any recurrent strokelike symptoms please call [phone] -Please monitor your blood pressures closely - Please start taking Eliquis tomorrow - Please monitor for bloody black stools if so please go to the emergency room -Have your primary care provider recheck your hemoglobin as outpatient - Please follow-up with neurology - Please follow up with cardiology - Please wear event monitor as prescribed -For your pneumonia please take antibiotics as prescribed -Please follow-up with your primary care provider Please follow-up with your CT surgeon at [place] If any fevers or chills or cough go to the emergency room For your multinodular thyroid gland please see your primary care provider for thyroid ultrasound Discharge Attestations Time Spent in Discharge Care*: greater than 30 min Quality Metrics Clinical Quality Measures [ Cerebrovascular Accident { Contraindication to Antithrombotic: None; antithrombotic prescribed; Contraindication to Anticoagulation: None; anticoagulation prescribed; Contraindication to Statin: None; Statin prescribed;}] Coding Level of Care Code 71143 Total time (in minutes) for Discharge: 45 Diagnoses Cerebrovascular accident I63.9 Valvular heart disease I38 Atrial fibrillation I48.91 Sleep apnea G47.30 ADHD (attention deficit hyperactivity disorder) F90.9 History of coronary artery bypass graft x 1 Z95.1 History of aortic valve replacement Z95.2
[2025-05-06 12:38] VITALS: BP 137/76; PULSE 75; RESP 21; TEMP 37; O2SAT 96
== END 2025-05-06 13:15 | disposition home health service (06) | DRG 64 ==
LOC: ER 05-05 01:40 → CSU 05-05 02:19
PROVIDERS: Admitting Provider Internal Medicine; Emergency Provider Emergency Medicine; PCP Nurse Practitioner; Visit Provider Family Medicine
DX: I63.81 Other cerebral infarction due to occlusion or stenosis of small artery (principal); J18.9 Pneumonia, unspecified organism; R29.810 Facial weakness; G83.24 Monoplegia of upper limb affecting left nondominant side; R47.1 Dysarthria and anarthria; R29.704 NIHSS score 4; I48.0 Paroxysmal atrial fibrillation; G47.30 Sleep apnea, unspecified; F90.9 Attention-deficit hyperactivity disorder, unspecified type; I25.10 Atherosclerotic heart disease of native coronary artery without angina pectoris; G62.9 Polyneuropathy, unspecified; I49.3 Ventricular premature depolarization; Z79.82 Long term (current) use of aspirin; Z79.891 Long term (current) use of opiate analgesic; Z85.71 Personal history of Hodgkin lymphoma; Z87.891 Personal history of nicotine dependence; Z92.3 Personal history of irradiation; Z95.2 Presence of prosthetic heart valve; Z95.1 Presence of aortocoronary bypass graft; Z99.89 Dependence on other enabling machines and devices; Z82.49 Family history of ischemic heart disease and other diseases of the circulatory system
CPT/HCPCS: 36415; 70450; 70496; 70498; 70551; 71045; 80053; 80306; 81001; 84145; 85025; 85610; 85730; 86140; 93005; 93306; 94664; 96372; 96374; 96375; 97110; 97116; 97162; 97167; 99285; 99291; 99292; J0456; J0696; J1200; J1644; J1650; J7050; J7120; J9999

== ENCOUNTER → 2025-05-19 13:57 | Outpatient (BNVA) | payer OTHER, SELFPAY | PROVIDERS: PCP Nurse Practitioner; Visit Provider Nurse Practitioner Family | DX: I48.91 Unspecified atrial fibrillation (principal); Z79.01 Long term (current) use of anticoagulants; Z79.82 Long term (current) use of aspirin; I69.354 Hemiplegia and hemiparesis following cerebral infarction affecting left non-dominant side; Z09 Encounter for follow-up examination after completed treatment for conditions other than malignant neoplasm; Z95.1 Presence of aortocoronary bypass graft; Z95.2 Presence of prosthetic heart valve; Z87.891 Personal history of nicotine dependence | CPT/HCPCS: 36415; 85025; 99213 ==

== ENCOUNTER → 2025-05-27 13:42 | Outpatient (BNVA) | payer OTHER, SELFPAY | PROVIDERS: PCP Nurse Practitioner; Visit Provider Specialist | DX: I63.89 Other cerebral infarction (principal); I48.91 Unspecified atrial fibrillation; G47.30 Sleep apnea, unspecified | CPT/HCPCS: 99205 ==

== ENCOUNTER → 2025-06-10 08:00 | Outpatient (BNVA) | payer OTHER, SELFPAY | PROVIDERS: PCP Nurse Practitioner; Visit Provider Internal Medicine | DX: E04.1 Nontoxic single thyroid nodule (principal); I10 Essential (primary) hypertension | CPT/HCPCS: 36415; 84439; 84443; 99204 ==

== ENCOUNTER → 2025-07-31 14:13 | Outpatient (BNVA) | payer OTHER, SELFPAY | PROVIDERS: PCP Nurse Practitioner; Visit Provider Internal Medicine Cardiovascular Disease | DX: I25.10 Atherosclerotic heart disease of native coronary artery without angina pectoris (principal); Z95.1 Presence of aortocoronary bypass graft; I10 Essential (primary) hypertension; I48.91 Unspecified atrial fibrillation; I34.0 Nonrheumatic mitral (valve) insufficiency; Z95.2 Presence of prosthetic heart valve; N52.9 Male erectile dysfunction, unspecified; Z86.73 Personal history of transient ischemic attack (TIA), and cerebral infarction without residual deficits; Z87.891 Personal history of nicotine dependence; Z79.01 Long term (current) use of anticoagulants | CPT/HCPCS: 99214 ==

== ENCOUNTER → 2025-08-18 14:52 | Outpatient (BNVA) | payer OTHER, SELFPAY | PROVIDERS: PCP Nurse Practitioner; Visit Provider Internal Medicine Cardiovascular Disease | DX: I48.91 Unspecified atrial fibrillation (principal); I25.10 Atherosclerotic heart disease of native coronary artery without angina pectoris; I10 Essential (primary) hypertension; Z95.2 Presence of prosthetic heart valve; Z87.891 Personal history of nicotine dependence; Z79.01 Long term (current) use of anticoagulants | CPT/HCPCS: 99214 ==

== ENCOUNTER → 2025-08-26 08:31 | Outpatient (BNVA) | payer OTHER, SELFPAY | PROVIDERS: PCP Nurse Practitioner; Visit Provider Nurse Practitioner Family | DX: S00.30XA Unspecified superficial injury of nose, initial encounter (principal); S00.80XA Unspecified superficial injury of other part of head, initial encounter; X58.XXXA Exposure to other specified factors, initial encounter; D18.01 Hemangioma of skin and subcutaneous tissue; Z87.2 Personal history of diseases of the skin and subcutaneous tissue; D48.5 Neoplasm of uncertain behavior of skin | CPT/HCPCS: 11102; 99213 ==